=== PATIENT | female | born 1950 | race Caucasian/White ===

== ENCOUNTER 2024-11-16 08:59 | Outpatient (CLI) | payer SELFPAY ==
--- NOTE | 2024-11-16 09:11 | RDU_ITS ---
Reason For Study: HTN Right Renal Artery Left Renal Artery Right renal artery ostium Left renal artery ostium 346.5/69.7 225.1/76.3 RSV/EDV. PSV/EDV. Right renal artery proximal Left renal artery proximal PSV/EDV 253.5/45.5 PSV/EDV. 243.7/38.2 . Right renal artery mid 167.5/50.8 Left renal artery mid 185.8/29.1 PSV/EDV. PSV/EDV . Right renal artery distal Left renal artery distal 112.6/19.2 104.5/34.2 PSV/EDV. PSV/EDV. Right RAR 2.9. Left RAR 3.9. Right Renal Parenchyma Left Renal Parenchyma Upper Pole Medula 24.9/8.4 PSV/EDV. Left upper pole medulla 19.7/5.4 Right upper pole medulla EDR 0.3 . PSV/EDV . Right upper pole medulla R.I. Left upper pole medulla EDR 0.3 . 0.67 . Left upper pole medulla R.I. 0.72 . Upper Ja Cortx 21.2/8.4 PSV/EDV. UP Cortex 18.1/7.1 PSV/EDV. Right upper pole cortex EDR 0.4 . Left upper pole cortex EDR 0.4 . Right upper pole cortex R.I. 0.61 . Left upper pole cortex R.I. 0.61 . Right lower Pole medulla 22.5/9.6 Left lower Pole medulla 50.1/9.0 PSV/EDV . PSV/EDV . Right lower pole medulla EDR 0.4 . Left lower pole medulla EDR 0.2 . Right lower pole medulla R.I. Left lower pole medulla R.I. 0.82 . 0.57 . Lower Pole Cortx 26.4/10.9 PSV/EDV. Lower Pole Cortex 14.5/6.5 PSV/EDV. Left lower pole cortex EDR 0.4 . Right lower pole cortex EDR 0.4 . Left lower pole cortex R.I. 0.59 . Right lower pole cortex R.I. 0.55 . Left Renal Hilar Right Renal Hilar LT Hilar avg 59.0/18.4 PSV/EDV . Right Hilar avg 72.0/27.8 PSV/EDV. Left hilar acceleration time 40 Right hilar acceleration time 70 m/sec. m/sec. Left Renal Dimensions Right Renal Dimensions Left kidney size 10.6 cm . Right kidney size 8.9 cm . Left cortical dimension 1.26 cm . Right cortical dimension 1.14 cm . Aorta Proximal abdominal aorta 2.50x2.27 cm . Proximal abdominal aorta peak systolic velocity is 88.8 cm/sec . Distal abdominal aorta 1.66x1.62 cm . Distal abdominal aorta peak systolic velocity is 107.0 cm/sec . VL/Renal Artery Duplex Ultrasound Interpretation Summary Right renal artery patent with < 60% stenosis. Left renal artery patent with > 60% stenosis. Right renal vein patent. Left renal vein patent. Right kidney diminshed in size. Left kidney normal in size. Ordering Physician: Kaveh Alston Referring Physician: Kaveh Alston Performed By: Kamille Bryant RVT and Student
--- NOTE | 2024-11-16 09:11 | ECHOD_ITS ---
Reason For Study: HYPERTENSION Procedure This was a 2D Doppler, Color Flow transthoracic echocardiogram. Exam performed in department. Left Ventricle Normal LV size. Left ventricular systolic function is normal. The left ventricular ejection fraction is 65 %. Stage 1 diastolic dysfunction. No regional wall motion abnormalities noted. Right Ventricle Normal RV size. Normal systolic function. Atria Normal left atrium. Normal right atrium. Mitral Valve Normal mitral valve. Mild (1+) eccentric mitral valve insufficiency. Tricuspid Valve Normal tricuspid valve. Mild (1+) tricuspid valve insufficiency. Pulmonary artery systolic pressure is 25 mmHg. Aortic Valve Trisinus/trileaflet aortic valve. Pulmonic Valve Normal pulmonic valve. Great Vessels Normal aortic root. The pulmonary artery is normal size. Normal inferior vena cava. Pericardium/Pleural No pericardial effusion. MMode/2D Measurements & Calculations LVIDd: 3.8 cm IVSd: 1.2 cm LVOT diam: 2.0 cm LVIDs: 2.1 cm LVPWd: 1.1 cm LVOT area: 3.1 cm2 RVDd: 3.9 cm FS: 43.8 % _ asc Aorta Diam: 3.4 cm LAV(MOD-bp): 50.3 ml LVAd ap4: 23.4 cm2 LAV(MOD-bp) Indexed: 25.5 ml/m2 LVLd ap4: 7.7 cm LAV(MOD-sp2): 49.5 ml EDV(MOD- sp4): 56.6 ml LAV(MOD-sp4): 47.4 ml EDV(sp4- el): 60.4 ml LVAs ap4: 12.0 cm2 LVLs ap4: 6.4 cm ESV(MOD- sp4): 19.1 ml ESV(sp4- el): 19.1 ml EF(MOD- sp4): 66.3 % EF(sp4- el): 68.3 % _ LVAd ap2: 20.6 cm2 SV(MOD-sp4): 37.5 ml SV(MOD- sp2): 30.1 ml LVLd ap2: 7.8 cm SI(MOD-sp4): 19.0 ml/m2 SI(MOD- sp2): 15.2 ml/m2 EDV(MOD-sp2): 44.6 ml EDV(sp2-el): 46.2 ml LVAs ap2: 10.7 cm2 LVLs ap2: 6.8 cm ESV(MOD-sp2): 14.5 ml ESV(sp2-el): 14.2 ml EF(MOD-sp2): 67.5 % _ SV(sp4-el): 41.3 ml Ao sinus diam: 2.[address] Junction: 2.7 cm _ LA dimension(2D): 3.4 cm LA A4 area: 18.0 cm2 RA A4 area: 16.3 cm2 _ TAPSE: 1.9 cm Time Measurements MV dec time: 0.24 sec Doppler Measurements & Calculations MV E max rocky: 74.0 cm/sec Lat Peak E' Rocky: 10.9 cm/sec Med Peak E' Rocky: 8.2 cm/sec MV A max rocky: 90.8 cm/sec E/E' lat: 6.8 E/E' med: 9.0 MV E/A: 0.81 _ MV dec slope: 306.7 cm/sec2 Ao V2 max: 183.3 cm/sec LV V1 max: 114.8 cm/sec Ao max P.4 mmHg LV V1 max P.3 mmHg Ao V2 mean: 136.8 cm/sec LV V1 mean P.0 mmHg Ao mean P.1 mmHg LV V1 mean: 80.7 cm/sec Ao V2 VTI: 38.3 cm LV V1 VTI: 26.7 cm AV (velocity ratio): 0.70 ANA PAULA(I,D): 2.2 cm2 ANA PAULA(V,D): 2.0 cm2 _ SV(LVOT): 83.5 ml PA V2 max: 100.6 cm/sec TR max rocky: 229.9 cm/sec TR max P.1 mmHg ECHO/Echo Complete Interpretation Summary Normal LV size. Left ventricular systolic function is normal. The left ventricular ejection fraction is 65 %. Stage 1 diastolic dysfunction. Pulmonary artery systolic pressure is 25 mmHg. Ordering Physician: Kaveh Alston Referring Physician: Kaveh Alston Performed By: Patricia Escobar RDCS
--- NOTE | 2024-11-16 09:11 | CDU_ITS ---
Reason For Study: HTN Rt. Velocities/BP Lt. Velocities/BP Prox CCA 139.0/22.6 cm/sec. Prox CCA 166.7/37.1 cm/sec. Mid CCA 121.4/27.0 cm/sec. Mid CCA 124.7/18.8 cm/sec. Dist CCA 86.3/15.1 cm/sec. Dist CCA 84.6/18.8 cm/sec. Prox ICA 76.5/15.1 cm/sec. Prox ICA 65.4/18.8 cm/sec. Mid ICA 86.3/24.9 cm/sec. Mid ICA 66.6/25.9 cm/sec. Dist ICA 102.3/29.8 cm/sec. Dist ICA 82.6/21.2 cm/sec. Rt. ICA/CCA = 0.8. Lt. ICA/CCA = 0.7. Prox ECA 128.0/16.0 cm/sec. Prox ECA 110.1/13.3 cm/sec. Rt. Vert. 56.9/16.3 cm/sec. Lt. Vert. 47.2/10.9 cm/sec. Right Extracranial There is homogeneous, smooth atherosclerotic plaque noted in the right common carotid artery. There is heterogeneous, irregular atherosclerotic plaque noted in the right internal carotid artery. There is intimal thickening but no significant atherosclerotic plaque noted in the right external carotid artery. Antegrade flow is noted in the right vertebral artery. Left Extracranial There is homogeneous, smooth atherosclerotic plaque noted in the left common carotid artery. There is homogeneous, irregular atherosclerotic plaque noted in the left internal carotid artery. There is homogeneous, smooth atherosclerotic plaque noted in the left external carotid artery. Antegrade flow is noted in the left vertebral artery. Procedure Carotid Duplex [id number]. This is a Carotid Duplex examination using B-mode, color flow and specral Doppler. Exam performed in department. VL/Carotid Duplex Ultrasound Interpretation Summary Mild (<50%) stenosis right extracranial internal carotid. Mild (<50%) stenosis left extracranial internal carotid. Patent and antegrade vertebrals bilaterally. Ordering Physician: Kaveh Alston Referring Physician: Kaveh Alston Performed By: Kamille Bryant RVT and Student
== END 2024-11-16 23:59 | disposition home or self-care (01) ==
PROVIDERS: PCP Physician Assistant; Referring Provider Physician Assistant; Visit Provider Physician Assistant
DX: I16.0 Hypertensive urgency (principal); I25.10 Atherosclerotic heart disease of native coronary artery without angina pectoris; I70.1 Atherosclerosis of renal artery
CPT/HCPCS: 93306; 93880; 93975

== ENCOUNTER → 2025-06-18 | Outpatient (CLI) | payer SELFPAY ==
--- NOTE | 2025-06-18 07:59 | CT_ITS ---
PROCEDURE: EXTREMITY UPPER WITHOUT CONTRA 06/18/2025 REASON FOR EXAM: PRIMARY OSTEOARTHRITIS TECHNIQUE: Procedure Code: CTEUWO Modality: CT Procedure: EXTREMITY UPPER WITHOUT CONTRA Coronal and Sagittal reconstruction series were provided. One or more dose reduction techniques were used (e.g., Automated exposure control, adjustment of the mA and/or kV according to patient size, use of iterative reconstruction technique. RADIATION DOSE SUMMARY: CTDlvol: 44.6 mGy DLP: 1100 mGycm COMPARISON: None FINDINGS: Bones: Bone mineralization is preserved. There is no acute fracture. Joints: Advanced degenerative changes of the left glenohumeral joint. Calcified 5 mm and 12 mm calcified loose bodies in the posterior recess of the joint. Joint effusion. Subchondral cystic changes seen in the glenoid and humeral head. Moderate AC joint arthropathy present. Multilevel spondylosis through the spine. Soft Tissues: Soft tissues around the shoulder are normal. There is a calcified granulomata in the left upper lobe. Subpleural 6 mm nodule seen in the left lower lobe. Remainder of the lung is clear Visualized base of the neck is normal. There is atherosclerosis. Ectasia of the aorta present. No pericardial effusion seen. CT/Extremity Upper without Contra IMPRESSION: Advanced degenerative changes of the glenohumeral joint with joint effusion and multiple calcified loose bodies as described above. Reading Location: [facility]
[2025-06-18 09:16] LABS: Hematocrit 39.1 % (37-47); Hemoglobin 13.1 g/dL (12.0-15.0); Immature Granulocytes Count 0.020 X10^3/uL (0.0-0.0); Mean Corp Hgb Conc 33.5 g/dL (32-36); Mean Corpuscular Volume 92.0 fL (81-99); Mean Platelet Vol. 10.6 fl (6.2-12.0); NRBC Flagged by Analyzer 0 % (0-5); Platelet Count 247 K/mm3 (150-450); RBC Distribution Width CV 12.8 % (11.6-14.6); RBC Distribution Width SD 43.0 fl (35.1-43.9); Red Blood Count 4.25 M/mm3 (4.2-5.4); White Blood Count 6.7 K/mm3 (4.4-11.0)
[2025-06-18 09:46] LABS: Albumin, Serum 4.1 g/dL (3.4-4.8); Anion Gap 11 (5-15); BUN 22 mg/dL (4-19); BUN/Creat Ratio 19.9 RATIO (10-20); Calcium,Total 9.5 mg/dL (7.6-11.0); Carbon Dioxide 26.4 mmol/L (21.0-32.0); Chloride 104 mmol/L (98-108); Glucose 91 mg/dL (70-99); Potassium 4.5 mmol/L (3.3-5.1)
[2025-06-18 11:04] LABS: Magnesium 2.3 mg/dL (1.5-2.2)
== END | disposition home or self-care (01) ==
PROVIDERS: Anesthesiology; PCP Physician Assistant; Visit Provider Student in an Organized Health Care Education/Training Program
DX: Z01.818 Encounter for other preprocedural examination (principal); M19.012 Primary osteoarthritis, left shoulder
CPT/HCPCS: 36415; 73200; 80048; 82040; 83735; 85025; 87081

== ENCOUNTER 2025-07-12 11:01 | Observation (INO) | payer SELFPAY ==
--- NOTE | 2025-06-15 08:50 | PAT.ANESEVAL ---
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 When Was Last Pacemaker Check QUESTION #4 FULL TEXT: You/Your Family Experience fever (hyperthermia) with Anesthesia Last Oral Intake Last Oral intake: Last Oral Intake NPO since Meds taken in AM with sips of water? Meds patient instructed to take am of surgery PONV PONV - certified marine mechanic: PONV - certified marine mechanic Female Yes 06/14/25 08:21 HX of Motion Sickness No 06/14/25 08:21 HX of N/V After Surgery No 06/14/25 08:21 Non-Smoker Yes 06/14/25 08:21 Duration of Surgery greater Yes 06/14/25 08:21 than 60 minutes Number of Risk Factors 3 06/14/25 08:21 PONV Score Moderate Risk 06/14/25 08:21 Respiratory Assessment Respiratory Assessment - certified marine mechanic: Respiratory Tract Infection Hx - certified marine mechanic Hx Respiratory Tract Infection No 06/14/25 08:21 STOP Sleep Apnea STOP Sleep Apnea - certified marine mechanic: STOP Sleep Apnea - certified marine mechanic Hx Hypertension Yes: CONTROLLED WITH MEDS 06/14/25 08:21 Hx Sleep Apnea No 06/14/25 08:21 CPAP BIPAP Do you snore loudly (louder No 06/14/25 08:21 than talking or can be heard Do you often feel tired/ No 06/14/25 08:21 fatigued/ sleepy during daytime? Has anyone observed you stop No 06/14/25 08:21 breathing during sleep? STOP Results Negative 06/14/25 08:21 QUESTION #5 FULL TEXT : Do you snore loudly (louder than talking or can be heard through closed doors)? 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 Specify any problems Hx of Preganancy in last 3 No 06/14/25 08:21 Months Nurse Filling Out Transfusion DSCHRIBER 06/14/25 08:21 & Questions: Date: 06/14/25 06/14/25 08:21 Time: 08:22 06/14/25 08:21 Patient unable to answer at this time (ie. confused, unrespo /Reproduction History /Reproductive History - certified marine mechanic: /Reproductive Hx- certified marine mechanic Hx Now No 06/14/25 08:21 Gestational Age (in weeks): EDC: Hx Hx Para Hx Section SAB No 06/14/25 08:21 PFS Medical History (Updated 06/14/25 @ 10:08 by Linda Youngblood) Wears hearing aid Wears glasses Wears partial dentures Post-menopausal Arthritis High cholesterol Stroke/cerebrovascular accident Non-smoker Leg cramps History of edema Cardiology follow-up encounter Hypertension History of rheumatic fever History of echocardiogram Home Medications ?Medication ?Instructions ?Recorded ?Last Taken ?Type aspirin 81 mg tablet,delayed 81 mg PO DAILY 06/14/25 Unknown History release (Adult Low Dose Aspirin) atorvastatin 40 mg tablet (Lipitor) 40 mg PO QHS 06/14/25 Unknown History cholecalciferol (vitamin D3) 50 50 mcg PO DAILY 06/14/25 Unknown History mcg (2,000 unit) tablet (Vitamin D3) latanoprost 0.005 % eye drops 1 drp ophthalmic (eye) DAILY 06/14/25 Unknown History losartan 50 mg tablet 50 mg PO DAILY 06/14/25 Unknown History nifedipine 30 mg tablet,extended 30 mg PO QHS 06/14/25 Unknown History release omega 2-odq-zgl-fish oil 1,000 mg 1 cap PO DAILY 06/14/25 Unknown History (120 mg-180 mg) capsule timolol 0.5 % eye drops 1 drp EACH EYE QHS 06/14/25 Unknown History vit C 50 mg-E 15 unit-zinc cit 4.5 2 tab PO DAILY 06/14/25 Unknown History mg-lutein 2.5 mg-zeaxan chew tablet ([facility] vitamin B complex (Complex B-100 1 tab PO DAILY 06/14/25 Unknown History tablet,extended release) Allergy/AdvReac Type Severity Reaction Status Date / Time No Known Allergies Allergy Verified 06/14/25 08:11 Surgical History (Updated 06/14/25 @ 08:31 by Linda Youngblood) Hx of colonoscopy Hx of cholecystectomy Social History Smoking Status: Never smoker Audit: Pertinent Findings Pertinent Findings Echo (EF%) pertinent findings: November 16, 2024. EF is 65%. PASP is 25 mmHg. No aortic stenosis is noted. Consult pertinent findings: January 10, 2025. Dr. Grady. 1. Cerebrovascular accident-check Holter monitor for evidence of any atrial fibrillation. (See below). 2. Chest pain-atypical?less likely to be ischemic. Stress test was discussed patient wants to wait for now. 3. Hypertension?stable. Additional pertinent findings: Holter monitor. January 10, 2025. Heart rate ranged from 42 to 132 bpm. Many PACs. Rare PVCs. Short 3-5 beat run of atrial tachycardia. No significant bradycardia. Recommendation Anesthesia Recommendation Anesthesia recommendation: OPTIMIZED for anesthesia
[2025-07-12] VITALS (15 sets, daily range): BP systolic 120–151; BP diastolic 60–80; PULSE 62–77; RESP 16; TEMP 36.1–36.4; O2SAT 96–100; BMI 28.4
[2025-07-12] MEDS: Lactated Ringers 1,000 ML 15 ML IV (07:45)
[2025-07-12] MEDS: LR 1,000 ML - BOLUS PREOP 999 ML IV (08:17)
[2025-07-12] MEDS: Magnesium 1 GM over 15 mins IV (08:17)
--- NOTE | 2025-07-12 08:31 | PCM.PRE.AN2 ---
ASA Classification* ASA Classification ASA Classification: 3 Assessment & Plan Anesthesia* Anesthesia Assessment Anesthesia Assessment: Discussed sedation and/or anesthesia options, risks, benefits, and alternatives with patient/parents/legal guardian/POA. Questions invited. The patient/parents/legal guardian/POA seems to understand and agrees to proceed with anesthesia plan. Reviewed the physical assessment, medical history, allergy history and patient home medications list prior to surgery/procedure/anesthetic and documented any changes. Performed airway and anesthesia risk assessments. Anesthesia Type Anesthesia Type: General and Block (Left interscalene) History Source History Obtained from:: Patient and Chart Anesthesia Focused Assessment* Temperature: 97.3 F Pulse Rate: 77 Blood Pressure: 139/60 Respiratory Rate: 16 Pulse Ox: 99 Oxygen Delivery Method: Room Air Airway Assessment Mouth opens: >3 cm Mallampati Score: IV Teeth Condition: Intact, Dentures, Partial and Upper Neck Range of motion (ROM): Full ROM Labs Anesthesia Preop lab: CBC WBC, (4.4-11.0) 6.7 K/mm3 06/18/25, 08:07 RBC, (4.2-5.4) 4.25 M/mm3 06/18/25, 08:07 Hgb, (12.0-15.0) 13.1 g/dL 06/18/25, 08:07 Hct, (37-47) 39.1 % 06/18/25, 08:07 Plt Count, (150-450) 247 K/mm3 06/18/25, 08:07 CHEMISTRY Potassium, (3.3-5.1) 4.5 mmol/L 06/18/25, 08:07 Sodium, (133-145) 141 mmol/L 06/18/25, 08:07 Magnesium, (1.5-2.2) 2.3 mg/dL H 06/18/25, 08:07 BUN, (4-19) 22 mg/dL H 06/18/25, 08:07 Creatinine, (0.70-1.20) 1.11 mg/dL 06/18/25, 08:07 Glucose, (70-99) 91 mg/dL 06/18/25, 08:07 COAG Pre-Assessment Diagnosis/Proposed Procedure Planned Operative Procedure(s): LEFT REVERSE TOTAL SHOULDER ARTHROPLASTY Anesthesia History Anesthesia History - twister doffer: Anesthesia History - twister doffer Hx Hospitalization Yes: 10/2024 CVA 06/14/25 08:21 Any Problems With Anesthesia No 06/14/25 08:21 Cholinesterase deficiency No 06/14/25 08:21 You/Your Family Experience No 06/14/25 08:21 fever (hyperthermia) with Relationship Recent Exposure to Contagious No 07/12/25 07:56 Disease Does patient have nerve No 06/14/25 08:21 stimulator Patient instructed to have device shut off --Does patient have Pacemaker No 07/12/25 07:56 or ICD? When Was Last Pacemaker Check QUESTION #4 FULL TEXT: You/Your Family Experience fever (hyperthermia) with Anesthesia Last Oral Intake Last Oral intake: Last Oral Intake NPO since 05:00 07/12/25 07:56 Meds taken in AM with sips of No 07/12/25 07:56 water? Meds patient instructed to take am of surgery PONV PONV - twister doffer: PONV - twister doffer Female Yes 06/14/25 08:21 HX of Motion Sickness No 06/14/25 08:21 HX of N/V After Surgery No 06/14/25 08:21 Non-Smoker Yes 06/14/25 08:21 Duration of Surgery greater Yes 06/14/25 08:21 than 60 minutes Number of Risk Factors 3 06/14/25 08:21 PONV Score Moderate Risk 06/14/25 08:21 Height & Weight Height & Weight: Anesthesia: Height & Weight Height 5 ft 6 in 07/12/25 07:56 Weight: 80 kg 07/12/25 07:56 Body Mass Index (BMI) 28.4 07/12/25 07:56 Respiratory Assessment Respiratory Assessment - twister doffer: Respiratory Tract Infection Hx - twister doffer Hx Respiratory Tract Infection No 06/14/25 08:21 STOP Sleep Apnea STOP Sleep Apnea - twister doffer: STOP Sleep Apnea - twister doffer Hx Hypertension Yes: CONTROLLED WITH MEDS 06/14/25 08:21 Hx Sleep Apnea No 06/14/25 08:21 CPAP BIPAP Do you snore loudly (louder No 06/14/25 08:21 than talking or can be heard Do you often feel tired/ No 06/14/25 08:21 fatigued/ sleepy during daytime? Has anyone observed you stop No 06/14/25 08:21 breathing during sleep? STOP Results Negative 06/14/25 08:21 QUESTION #5 FULL TEXT : Do you snore loudly (louder than talking or can be heard through closed doors)? 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 Specify any problems Hx of Preganancy in last 3 No 06/14/25 08:21 Months Nurse Filling Out Transfusion DSCHRIBER 06/14/25 08:21 & Questions: Date: 06/14/25 06/14/25 08:21 Time: 08:22 06/14/25 08:21 Patient unable to answer at this time (ie. confused, unrespo /Reproduction History /Reproductive History - twister doffer: /Reproductive Hx- twister doffer Hx Now No 06/14/25 08:21 Gestational Age (in weeks): EDC: Hx Hx Para Hx Section SAB No 06/14/25 08:21 Active Medications Active Medications: Current Medications Generic Name Dose Route Start Last Admin Trade Name Meri PRN Reason Stop Dose Admin Acetaminophen 1,000 mg 07/12/25 09:15 07/12/25 08:18 Acetaminophen 500 Mg Tablet PO 07/12/25 09:16 1,000 mg PREOP ONE Administration Celecoxib 400 mg 07/12/25 09:15 07/12/25 08:17 Celecoxib 200 Mg Capsule PO 07/12/25 09:16 400 mg PREOP ONE Administration Dexamethasone Sodium Phosphate 10 mg 07/12/25 09:15 Dexamethasone 10 Mg/Ml Vial IV 07/12/25 09:16 INTRAOP ONE Gabapentin 600 mg 07/12/25 09:15 07/12/25 08:18 Gabapentin 600 Mg Tablet PO 07/12/25 09:16 600 mg PREOP ONE Administration Lactated Ringer's 1,000 mls @ 999 mls/hr 07/12/25 09:15 07/12/25 08:17 IV 07/12/25 10:15 999 mls/hr .Q1H1M ABI Administration Cefazolin Sodium 2 gm/ Sodium 110 mls @ 150 mls/hr 07/12/25 09:15 Chloride IV 07/12/25 09:58 INTRAOP ONE Tranexamic Acid 1,000 mg/ 110 mls @ 660 mls/hr 07/12/25 09:15 Sodium Chloride IV 07/12/25 09:24 INTRAOP ONE Lactated Ringer's 1,000 mls @ 999 mls/hr 07/12/25 10:15 IV 07/12/25 11:15 .Q1H1M ABI Lactated Ringer's 1,000 mls @ 125 mls/hr 07/12/25 11:15 IV 07/12/25 19:14 .Q8H ABI Magnesium Sulfate 1 gm/ 102 mls @ 408 mls/hr 07/12/25 09:15 07/12/25 08:17 Dextrose IV 07/12/25 09:29 408 mls/hr PREOP ONE Administration Lactated Ringer's 1,000 mls @ 15 mls/hr 07/12/25 07:45 IV .Q48H [facility] Insulin Human Lispro 1 - 6 unit 07/12/25 09:15 Insulin Lispro 100 Unit/Ml Insuln.Pen SC 07/12/25 15:15 Q4H PRN PRN BG>/= 180, SEE PROTOCOL Protocol PFSH Medical History Wears hearing aid Wears glasses Wears partial dentures Post-menopausal Arthritis High cholesterol Stroke/cerebrovascular accident Non-smoker Leg cramps History of edema Cardiology follow-up encounter Hypertension History of rheumatic fever History of echocardiogram Home Medications ?Medication ?Instructions ?Recorded ?Last Taken ?Type aspirin 81 mg tablet,delayed 81 mg PO DAILY 06/14/25 07/09/25 History release (Adult Low Dose Aspirin) atorvastatin 40 mg tablet (Lipitor) 40 mg PO QHS 06/14/25 07/11/25 History cholecalciferol (vitamin D3) 50 50 mcg PO DAILY 06/14/25 07/11/25 History mcg (2,000 unit) tablet (Vitamin D3) latanoprost 0.005 % eye drops 1 drp ophthalmic (eye) DAILY 06/14/25 07/11/25 History losartan 50 mg tablet 50 mg PO DAILY 06/14/25 07/11/25 History nifedipine 30 mg tablet,extended 30 mg PO QHS 06/14/25 07/11/25 History release omega 6-qou-dut-fish oil 1,000 mg 1 cap PO DAILY 06/14/25 07/11/25 History (120 mg-180 mg) capsule timolol 0.5 % eye drops 1 drp EACH EYE QHS 06/14/25 07/11/25 History vit C 50 mg-E 15 unit-zinc cit 4.5 2 tab PO DAILY 06/14/25 07/11/25 History mg-lutein 2.5 mg-zeaxan chew tablet ([employer]) vitamin B complex (Complex B-100 1 tab PO DAILY 06/14/25 07/11/25 History tablet,extended release) Allergy/AdvReac Type Severity Reaction Status Date / Time No Known Allergies Allergy Verified 07/12/25 07:50 Surgical History Hx of colonoscopy Hx of cholecystectomy Review of Systems (Anesthesia) ROS Narrative System reviewed and no additional complaints, except as documented.
[2025-07-12] MEDS: Midazolam 2 MG/2 ML Syringe IV (08:49)
[2025-07-12] MEDS: Cefazolin 1 GM/5 ML Vial 2 GM IV (09:20)
[2025-07-12] MEDS: fentaNYL 100 MCG/2 ML Ampul 50 MCG IV (09:25)
[2025-07-12] MEDS: Lidocaine 1% (5 ml sdv) 5 ML Vial 2 ML IV (09:25)
[2025-07-12] MEDS: TXA 1000mg in NS100 100ml (IVPB at Incision) 660 MG IV (10:50)
--- NOTE | 2025-07-12 11:25 | RAD_ITS ---
PROCEDURE: SHOULDER MIN 2 VIEWS 07/12/2025 REASON FOR EXAM: POST OP TECHNIQUE: Procedure Code: RADSH Modality: DX Procedure: SHOULDER MIN 2 VIEWS Laterality: Left COMPARISON: None FINDINGS: Patient is postop from left glenohumeral joint replacement. Components demonstrate anatomic alignment. There is normal expected soft tissue swelling and subcutaneous emphysema. No plain film evidence of postoperative complication RAD/Shoulder min 2 Views IMPRESSION: No plain film evidence of postoperative complication after left glenohumeral mila int replacement. Components demonstrate anatomic alignment Reading Location: [id number]
--- NOTE | 2025-07-12 11:29 | PCM.POST.ANE ---
Anesthesia: Postop Eval I Current Vital Signs Temperature: 97.5 F Pulse Rate: 67 Blood Pressure: 132/69 Respiratory Rate: 16 Pulse Ox: 100 Oxygen Delivery Method: Room Air Assessment Airway patent: Yes Spontaneous unlabored respirations: Yes Mental status: Awake and Calm nausea: No Vomiting: No Anesthesia Complication: No Fluid Hydration Crystalloid volume administer (ml): 800 Total IV fluid infused: 800 Progress Note Anesthesia document: Postop Eval 1 completed: Yes
[2025-07-12] MEDS: LR 1,000 ML - BOLUS POSTOP 999 ML IV (11:37)
[2025-07-12] MEDS: LR 1,000 ML - 125 ML/HR (POST BOLUS) POST OP IV (12:53)
[2025-07-12] MEDS: Ensure Surgery 237 ML LIQUID PO ×2 (13:31→17:20)
--- NOTE | 2025-07-12 14:18 | PCM.OPRPT ---
Operative Report (Standard) Operative Information Date of Procedure: 07/12/25 Pre-Operative Diagnosis: 1. Left primary glenohumeral joint osteoarthritis 2. Left shoulder rotator cuff tear Post-Operative Diagnosis: 1. Left primary glenohumeral joint osteoarthritis 2. Left shoulder rotator cuff tear Surgery/Procedure Performed: Left reverse total shoulder arthroplasty electrical controls assembler: Yes Principal Hardware Architect: Tiffanie Groves Tasks completed by certified surgical first assistant: Opening & closing, Removing tissue, Implanting device and Retracting Additional talent assistant?: No Type of Anesthesia: General/Regional RN Documented Start/Stop Times: Operation Date: 07/12/25 09:15 Case Time Into Pre-Op 07/12/25 07:33 Anesthesia Start 07/12/25 09:14 Into Room 07/12/25 09:14 Out of Pre-Op 07/12/25 09:14 Procedure Start 07/12/25 10:00 Procedure End 07/12/25 11:12 Anesthesia End 07/12/25 11:21 Out of Room 07/12/25 11:21 Into Recovery 07/12/25 11:25 Out of Recovery 07/12/25 12:33 Procedure Start Time: 10:00 Procedure Stop Time: 11:12 Select all DRAINS/GRAFTS/IMPLANTS that apply: Implanted device Implanted device details: Tornier Aequalis PerFORM+ reversed baseplate 25mm diameter +3 mm lateralization, +3 glenosphere cobalt chrome 36 mm diameter, Tornier perform inlay stem size #3 plus, + 3 mm retentive size number 3 36 mm diameter polyethylene insert, long central post and peripheral screws x4. Estimated Blood Loss: 200 cc Specimen collected: No Description of surgery: Patient arrived to [facility] morning of the procedure and was greeted by the same day surgery staff. Prior to his procedure, I greeted the patient in the preoperative holding area I identified the patient by name, record number, and date of . Informed consent was confirmed. The operative extremity was marked. All questions were answered to patient satisfaction. An interscalene block was administered prior to procedure by anesthesia staff for postoperative and intraoperative analgesia. At time of his procedure, patient was brought to the operative suite and positioned supine on a standard table with a beachchair attachment. General anesthesia was induced after all bony prominences were well-padded. Endotracheal tube was placed. After adequate anesthesia and securing the tube, we prepared the patient to be positioned in the beachchair position. A well-padded well puller head was applied. The nonoperative extremity was placed in a well arm hughes. He was then brought into the beachchair position after we confirmed an appropriate blood pressure. We then spun the bed 45 degrees. The operative extremity was then prepared. In the butterfly wing of the bed was removed and a well-padded torso strap was applied to secure the patient to the bed. The operative extremity was now free. We then prepped and draped the left upper extremity in normal, sterile orthopedic fashion. We then performed a timeout with all parties in attendance in agreement with the side, site, and operation be performed. 2 g Ancef was administered prior to incision by anesthesia staff. No concerns were voiced and we elected to proceed. I first marked a standard deltopectoral incision just lateral to the coracoid process in line with the long axis of the humerus. Skin was sharply incised with 10 blade scalpel. I then dissected bluntly through the subcutaneous layers and found the fat stripe between the deltoid and pectoralis major. The cephalic vein was then identified and protected. It was retracted laterally with the deltoid. I then bluntly dissected underneath the deltoid with a Mcmullen elevator. Karissa retractor was placed. The upper 1 cm of the pectoralis major was released. I then identified the long head of the biceps tendon in the intertubercular groove. This was tenodesed in situ with #2 FiberWire. I then amputated the biceps proximal to the tenodesis site and followed the tendon to the supraglenoid tubercle where it was amputated. This identified the lesser and greater tuberosities. The supraspinatus was completely torn and retracted with an exposed greater tuberosity. I then performed a subscapularis peel while rotating the humerus externally. I tagged the subscapularis for possible repair later with a tagging suture. Humeral head was then dislocated anteriorly. Appropriate access to the humeral head was confirmed. I then subluxed the humeral head posteriorly with a Fukuda retractor placed around the posterior lip of the glenoid. Inferior capsule was tension. I was able to palpate the axillary nerve. Inferior capsule was then released to the 4 o'clock position of the glenoid face. 3 sided subscapularis release was performed with Bovie cautery. I then remove the Fukuda retractor and redislocated the shoulder anteriorly. I then made a anatomic neck cut of the cartilaginous surface of the humeral head. Sizing plate for a size # 3 stem was utilized to determine appropriate reaming size. A central pin was placed engaging the lateral cortex of the humerus. A size # 3 reamer was used to ream the humeral metaphysis and prepare for the inlay stem. A canal finding reamer was utilized prior to sequential broaching to a size # 3 short stem with excellent rotational and axial purchase in the humerus. I remove the broach handle left the size # [address] I then subluxed the humerus posterior to the glenoid. I then placed retractors around the posterior and anterior glenoid to expose the glenoid. Glenoid labrum was removed with Bovie cautery protecting the axillary nerve. We then used the 25 mm guide to position our centering pin, exiting approximately 25 mm from the joint surface along the anterior scapula. Guide was removed and pin was analyzed and compared to preoperative planning. It appeared to be in appropriate position. The Nautilus shaped reamer was then placed over top of the centering pin. I reamed a flat surface of the glenoid. We then removed the reamer and used the cannulated drill for the long central post. Post and baseplate was assembled on the back table. We then inserted the baseplate and central post the assembled baseplate to an appropriate depth with good press-fit purchase. A Willington was used to confirm depth. Cortical screws then were placed in the peripheral holes with good purchase. The baseplate had excellent purchase and the entire scapula would rotate with rotation of the baseplate. We then impacted the 36+3 mm glenosphere and tightened the locking screw mechanism. We then removed retractors and turned our attention back to the humerus. I placed a standard +3 millimeters retentive polyethylene insert. I then reduced the shoulder. There was excellent range of motion and stability in all planes of motion. We selected this as our final size. We removed trials from the humerus after final dislocation. I copiously irrigated the canal. Broach was placed on hand and then impacted to an appropriate depth. Final + 3 mm retentive polyethylene insert was placed. Final reduction was then performed. The subscapularis was then identified with a tagging suture. Repair would have been likely under undue tension and likely failed. I elected to not perform a subscapularis repair. We then copiously irrigated the wound with sterile Betadine and normal saline solution. We reapproximated the interval with 0 Vicryl suture. Subcutaneous layers were reapproximated with 2 -0 Vicryl suture. Skin was finally running V-Loc 3-0 Monocryl suture and Dermabond. A sterile silver Mepilex dressing was applied. Patient was then placed in an ultra sling. Patient tolerated procedure well without complication. She was positioned back in the supine position extubated in the operative suite. She was transferred to the [facility] and subsequently to PACU in stable condition. Need for skilled talent assistant: Tiffanie Groves PA-C was critical to the outcome of the case. During the course of the procedure the physician talent assistant played a vital role. Her intimate knowledge of my steps in the procedure aided in safe and expedient completion of the procedure. The PA played a vital role in positioning particularly in obtaining the appropriate positioning. The PA was also vital in the retraction of soft tissues during the exposure and protecting vital structures. The PA was also vital and protecting soft tissues during times of bony cuts. She also played a vital role in closure with my direct supervision. The PA was also important during reduction and dislocation of the joint and trials intraoperatively. Intraoperative medications: 2 g Ancef IV, 1 g TXA IV x2 Post Operative Plan: Patient will be placed in observation overnight due to medical comorbidities including labile hypertension and recent CVA. Anticipate discharge home tomorrow if stable. Weightbearing: Nonweightbearing left upper extremity, okay for pendulums. Range of motion of wrist elbow and hand as tolerated. Antibiotics: 2 g Ancef IV prior to incision, 24 hours IV antibiotics postoperatively DVT Prophylaxis: Aspirin enteric-coated 81 mg twice daily starting tomorrow Villalobos: None Dressing: Maintain silver dressing x5 days. Okay to shower dressing on starting on day 4 X-Rays: 2 weeks postop in the office Pain Medication: Oxycodone Rx upon discharge Follow-up: 2 weeks post-operatively Surgical Findings: Severe primary glenohumeral joint osteoarthritic changes with full-thickness supraspinatus tear Complications Complications: No Admit VTE Documentation VTE Present on Admission: No VTE Mechan Device Prophylaxis: SCD's and Knee High JAKOB Hose VTE Pharm Prophylaxis ordered?: Yes
--- NOTE | 2025-07-12 15:25 | PCM.CONS.GEN ---
Assessment & Plan Assessment/Plan (1) Status post reverse arthroplasty of left shoulder: PLAN: Plan Patient is a 74-year-old female who presented [facility] on 07/12/2025 for planned left total shoulder replacement. Medicine consulted postoperatively for medical management. 1. Left primary glenohumeral joint arthritis with left shoulder rotator cuff tear ? Orthopedic surgery primary. S/p left reverse total shoulder replacement with Dr. Virk on 07/12. Tolerated procedure well, no intraoperative complications noted. Postoperative pain control with scheduled Tylenol and oxycodone as needed. DVT prophylaxis per orthopedics. PT/OT/case management consulted. Follow-up a.m. CBC and BMP. 2. Hypertension, hyperlipidemia, history of CVA with no residual deficits ? Normotensive in the 130s over 60s postoperatively. Okay to resume home baby aspirin, statin, losartan and nifedipine. DVT prophylaxis: Per orthopedics Total clinical time spent by myself addressing the patient's medical issues, reviewing all the data, and collaborating with patient's care team: 36 minutes. HPI Consult Data Date of Consult: 07/12/25 HPI Narrative Reason for Consultation: Postoperative medical management HPI Narrative: NAILA RASMUSSEN, is a 74 F who presented to [facility] on 07/12/2025 for planned orthopedic procedure. Medicine consulted postoperatively for medical management. Patient had left reverse total shoulder arthroplasty done with Dr. Virk today. Tolerated procedure well, no intraoperative complications noted. I saw the patient at bedside this afternoon, is present. Patient was sitting back comfortably in bed, conversing normally, in no acute distress. Her left arm was in a sling and she noted that she still felt numb from the left shoulder down to her fingers at this time. No pain or discomfort noted. She denies any other acute concerns at this time. [facility] Medical History Wears hearing aid Wears glasses Wears partial dentures Post-menopausal Arthritis High cholesterol Stroke/cerebrovascular accident Non-smoker Leg cramps History of edema Cardiology follow-up encounter Hypertension History of rheumatic fever History of echocardiogram Home Medications ?Medication ?Instructions ?Recorded ?Last Taken ?Type aspirin 81 mg tablet,delayed 81 mg PO DAILY 06/14/25 07/09/25 History release (Adult Low Dose Aspirin) atorvastatin 40 mg tablet (Lipitor) 40 mg PO QHS 06/14/25 07/11/25 History cholecalciferol (vitamin D3) 50 50 mcg PO DAILY 06/14/25 07/11/25 History mcg (2,000 unit) tablet (Vitamin D3) latanoprost 0.005 % eye drops 1 drp ophthalmic (eye) DAILY 06/14/25 07/11/25 History losartan 50 mg tablet 50 mg PO DAILY 06/14/25 07/11/25 History nifedipine 30 mg tablet,extended 30 mg PO QHS 06/14/25 07/11/25 History release omega 0-ofs-xcl-fish oil 1,000 mg 1 cap PO DAILY 06/14/25 07/11/25 History (120 mg-180 mg) capsule timolol 0.5 % eye drops 1 drp EACH EYE QHS 06/14/25 07/11/25 History vit C 50 mg-E 15 unit-zinc cit 4.5 2 tab PO DAILY 06/14/25 07/11/25 History mg-lutein 2.5 mg-zeaxan chew tablet ([employer]) vitamin B complex (Complex B-100 1 tab PO DAILY 06/14/25 07/11/25 History tablet,extended release) Allergy/AdvReac Type Severity Reaction Status Date / Time No Known Allergies Allergy Verified 07/12/25 07:50 Surgical History Hx of colonoscopy Hx of cholecystectomy ROS Constitutional Constitutional: Denies chills, fatigue, fever(s) or weakness Cardiovascular Cardiovascular: Denies chest pain Respiratory/Chest Respiratory/Chest: Denies shortness of breath at rest Gastrointestinal Gastrointestinal: Denies abdominal pain Musculoskeletal Musculoskeletal: Denies arthralgias or myalgias Neurologic Neurologic: Denies dizziness, focal weakness or headache(s) Physical Exam Const alert, oriented x3, no apparent distress and average body habitus Constitutional Narrative: Pleasant elderly female, sitting back comfortably in bedside chair, conversing normally, in no acute distress. General Appearance: cooperative and comfortable HEENT normocephalic, head/scalp atraumatic, hearing grossly normal bilaterally, nasal mucous membranes and turbinates normal and moist oral mucous membranes Eyes PERRL, EOMs intact bilaterally and conjunctivae normal Neck full ROM Chest inspection of chest normal Resp normal respiratory effort, normal air movement, no use of accessory muscles and clear to auscultation bilaterally Cardio regular rate, regular rhythm, no murmurs and peripheral pulses 2+ throughout GI normal to inspection, nondistended, normoactive bowel sounds, soft to palpation, non-tender and non-distended Back/Spine normal ROM Extremity Extremity Narrative: Left arm with sling in place. Skin no rashes or lesions noted Psych mental status grossly normal Lab / Micro Data Labs: Laboratory Results - last 24 hr 07/12/25 07:58: POC Glucose 80 Imaging Radiology Impression Shoulder X-Ray 07/12/25 11:25 IMPRESSION: No plain film evidence of postoperative complication after left glenohumeral joint replacement. Components demonstrate anatomic alignment Reading Location: [id number] Charges/Coding Visit Charges Inpatient E&M: 21474 Subs Hosp L2
--- NOTE | 2025-07-12 16:18 | POSTOPAN2_ITS ---
Anesthesia Postop Eval I Sum Postop Eval Completion status Anesthesia document: Postop Eval 1 completed: Yes Anesthesia Postop Eval I Summary Anesthesia Postop Eval I Summary: Anesthesia Postop Eval I: Assessment Summary Airway patent Yes 07/12/25 11:29 MERCHANDISING CONSULTANT.[email or web address] Spontaneous unlabored Yes 07/12/25 11:29 MERCHANDISING CONSULTANT.GDOTT respirations Mental status Awake,Calm 07/12/25 11:29 MERCHANDISING CONSULTANT.GDOTT nausea No 07/12/25 11:29 MERCHANDISING CONSULTANT.GDOTT Vomiting No 07/12/25 11:29 MERCHANDISING CONSULTANT.GDOTT Anesthesia Postop Eval I: Fluid Summary Crystalloid volume administer 800 07/12/25 11:29 MERCHANDISING CONSULTANT.GDOTT (ml) Colloids volume administered ( ml) Blood Product volume administered (ml) Total IV fluid infused 800 07/12/25 11:29 MERCHANDISING CONSULTANT.GDOTT Anesthesia Postop Eval I: Summary Notes Anesthesia Complication No 07/12/25 11:29 MERCHANDISING CONSULTANT.GDOTT Anesthesia Complication Comment: Post-operative progress note Anesthesia: Postop Eval II Evaluation Mental status: Awake Pain Level: 0 nausea: No Vomiting: No
--- NOTE | 2025-07-12 16:18 | PCM.POSTANE2 ---
Anesthesia Postop Eval I Sum Postop Eval Completion status Anesthesia document: Postop Eval 1 completed: Yes Anesthesia Postop Eval I Summary Anesthesia Postop Eval I Summary: Anesthesia Postop Eval I: Assessment Summary Airway patent Yes 07/12/25 11:29 SENIOR SEARCH MARKETING ANALYST.GDOTT Spontaneous unlabored Yes 07/12/25 11:29 SENIOR SEARCH MARKETING ANALYST.GDOTT respirations Mental status Awake,Calm 07/12/25 11:29 SENIOR SEARCH MARKETING ANALYST.GDOTT nausea No 07/12/25 11:29 SENIOR SEARCH MARKETING ANALYST.GDOTT Vomiting No 07/12/25 11:29 SENIOR SEARCH MARKETING ANALYST.GDOTT Anesthesia Postop Eval I: Fluid Summary Crystalloid volume administer 800 07/12/25 11:29 SENIOR SEARCH MARKETING ANALYST.GDOTT (ml) Colloids volume administered ( ml) Blood Product volume administered (ml) Total IV fluid infused 800 07/12/25 11:29 SENIOR SEARCH MARKETING ANALYST.GDOTT Anesthesia Postop Eval I: Summary Notes Anesthesia Complication No 07/12/25 11:29 SENIOR SEARCH MARKETING ANALYST.GDOTT Anesthesia Complication Comment: Post-operative progress note Anesthesia: Postop Eval II Evaluation Mental status: Awake Pain Level: 0 nausea: No Vomiting: No
[2025-07-12] MEDS: Cefazolin 1 GM/50 ML BAG IV (17:20)
[2025-07-12] MEDS: Senna/Docusate Sodium 1 Tablet 2 TABLET PO (20:52)
[2025-07-12] MEDS: Timolol 0.5% 5ML OPTH.BTL 1 DRP EACH EYE (20:53)
[2025-07-12] MEDS: NIFEdipine 30 MG Tablet PO (20:53)
--- OUTSIDE RECORDS SUMMARY | 2025-07-13 00:08 | XMS RPT_ITS | CCD ---
Author Organization [facility] ion Partnership [facility] Care Team Providers Care Inside Channel Account Manager Name Role Phone Nahomy Frank PA-C Primary Care Provid er NAHOMY FRANK Primary Care Unavaila ble [facility] GENER[facility] Consulting REMI Walter Attending Unavailable KATIE GIFFORD Admitting Unavailab SRINIVAS Foster Attending Unavailable NAHOMY FRANK Primary Care Unavaila NAHOMY Ortega Primary Care Unavaila EVERARDO Torres Attending UnavailNahomy gAustin Primary Care Provider PRICILLA JOSE Attending Unavailable PRICILLA JOSE Referring Unavailable NAHOMY FRANK Primary Care Unavailable Nahomy Frank Primary Care Unavailable Phi Virk Attending Unavailable Nahomy Frank Attending Unavailable Nahomy Frank Primary Care Unavailable Nahomy Frank Referring Unavailable Phi Virk Attending Unavailable Nahomy Frank Primary Care Unavailable Nahomy Frank Referring Unavailable Nahomy Frank Primary Care Unavailable Ramon Michael Attending Unavailable Nahomy Frank Primary Care Unavailable Piero Jaquez Attending Unavailable Medications Current Medications Medication Drug Class(es) Dates Sig (Normalized) Sig (Original) aspirin 81 mg delayed release oral tablet (7 sources) Platelet Aggregation Inhibitor, Nonsteroidal Anti-inflammatory Drug Start: 11-02-2024 End: 01-31-2025 take 1 tablet by mouth once daily aspirin 81 MG EC tablet Take 1 (one) tablet (81 mg total) by mouth daily . 30 tablet 2 11/02/2024 12:48 PM EST 11/02/2024 01/31/2025 Active Start: 11-01-2024 End: 11-02-2024 aspirin EC tablet 325 mg atorvastatin 40 mg oral tablet (7 sources) HMG-CoA Reductase Inhibitor Start: 11-01-2024 End: 12-02-2024 take 1 tablet by mouth once daily atorvastatin (LIPITOR) 40 MG tablet Take 1 (one) tablet (40 mg total) by mouth nightly . 30 tablet 11/02/2024 12:48 PM EST 11/02/2024 Active clopidogrel 75 mg oral tablet (7 sources) P2Y12 Platelet Inhibitor Start: 11-03-2024 End: 11-24-2024 take 1 tablet by mouth once daily clopidogreL (PLAVIX) 75 mg tablet Take 1 (one) tablet (75 mg total) by mouth daily for 21 days Start: 11/03/24. 21 tablet 11/02/2024 12:48 PM EST 11/03/2024 Active Start: 11-02-2024 take 300 mg by mouth once 300 mg, Oral, Once, On Tesha 11/02/24 at 1330, For 1 dose hydrALAZINE hydrochloride 50 mg oral tablet (3 sources) Arteriolar Vasodilator hydrALAZI NE (APRESOLINE) 50 MG tablet Indications: Cerebrovascular accident (CVA), unspecified mechanism (HCC) , Chest pain, unspecified type , Mixed hyperlipidemia , Primary hypertension Take 1 tablet by mouth as needed Active take 1 tablet by mouth twice suzan ly hydrALAZINE (APRESOLINE) 25 MG tablet Take 1 (one) tablet (25 mg total) by mouth 2 (two) times a day . Active hydroCHLOROthiazide 25 mg oral tablet (2 sources) Thiazide Diuretic take 1 tablet by mouth once daily hydroCHLOROthiazide (HYDRODIURIL) 25 MG tablet Take 1 (one) tablet (25 mg total) by mouth daily . Active losartan potassium 50 mg oral tablet (6 sources) Angiotensin 2 Receptor Citlaly Start: 2024 take 1 tablet by mouth once daily losartan (COZAAR) 50 MG tablet Take 1 (one) tablet (50 mg total) by mouth daily . 10/31/2024 Active multivitamin per tablet (5 sources) take 1 tablet by mouth once daily multivitamin per tablet Take 1 (one) tablet by mouth daily . Active take 1 tablet by mouth once miranda y multivitamin per tablet Take 1 (one) tablet by mouth daily . NIFEdipine 60 mg osmotic 24 hr extended release oral tablet (5 sources) Dihydropyridine Calcium Channel Citlaly take 1 tablet by mouth once daily NIFEdipine (PROCARDIA XL) 60 MG extended release tablet Indications: Cerebrovascular accident (CVA), unspecified mechanism (HCC) , Chest pain, unspecified type , Mixed hyperlipidemia , Primary hypertension Take 1 tablet by mouth daily Active take 1 tablet by khanh th once daily before breakfast NIFEdipine (ADALAT CC) 30 MG 24 hr table t Take 1 (one) tablet (30 mg total) by mouth every morning before breakfast . Active take 1 tablet by kahnh th every twenty-four hours at dinner NIFEdipine (ADALAT CC) 60 MG 24 hr table t Take 1 (one) tablet (60 mg total) by mouth with evening meal . Active verapamil hydrochloride 120 mg extended release oral tablet (5 sources) Calcium Channel Citlaly Start: 10-31-2024 take 1 tablet by mouth once daily verapamil sr (CALAN-SR) 120 MG er tablet Take 1 (one) tablet (120 mg total) by mouth daily . 10/31/2024 Active Completed/Discontinued Medications Medication Drug Class(es) Dates Sig (Normalized) Sig (Original) acetaminophen 325 mg oral tablet (1 source) Start: 11-01-2024 End: 11-02-2024 take 1 tablet by mouth every four hours as needed for pain and headache aluminum hydroxide 40 mg/ml / magnesium hydroxide 40 mg/ml / simethicone 4 mg/ml oral suspension (1 source) Start: 11-01-2024 End: 11-02-2024 take 30 mL by mouth every four hours as needed bisacodyl 10 mg rectal suppository (1 source) Stimulant Laxative Start: 11-01-2024 End: 11-02-2024 0.4 ml enoxaparin sodium 100 mg/ml prefilled syringe (1 source) Low Molecular Weight Heparin Start: 11-01-2024 End: 11-02-2024 inject 40 mg by subcutaneous injection once daily 40 mg, Subcutaneous, Nightly, First dose on Wed11/01/24 at 2100, Administer in abdomen unless otherwise directed by prescriber. Notify physician if patient refuses., Indication: VTE Prophylaxis iopamidoL (ISOVUE-370) 370 mg iodine /mL (76 %) injection 75 mL (1 source) Start: 11-01-2024 End: 11-01-2024 75 mL, Intravenous, Once in imaging, contrast, Starting on Wed11/01/24 at 0651, For 1 dose labetaloL (NORMODYNE) injection 10 mg (1 source) Start: 11-01-2024 End: 11-02-2024 take 10 mg intravenously every two hours as needed labetaloL (NORMODYNE) injection 10 mg latanoprost 0.05 mg/ml ophthalmic solution (7 sources) Prostaglandin Analog Start: 11-01-2024 End: 11-02-2024 1 drop, Both Eyes, At bedtime, First dose on Wed11/01/24 at 2100 take 1 drop(s) into the eye(s) once daily latanoprost (XALATAN) 0.005 % ophthalmic solution Indications: Cerebrovascular accident (CVA), unspecified mechanism (HCC) , Chest pain, unspecified type , Mixed hyperlipidemia , Primary hypertension 1 drop nightly Active take 1 drop(s) into the eye(s) at bedtime latanoprost (XALATAN) 0.005 % ophthalmic solution Administer 1 (one) drop to both eyes at bedtime . Active magnesium hydroxide 80 mg/ml oral suspension (1 source) Start: 11-01-2024 End: 11-02-2024 multivitamin (THERAGRAN) per tablet 1 tablet (1 source) Start: 11-02-2024 End: 11-02-2024 take 1 tablet by mouth once daily 1 tablet, Oral, Daily, First dose on Wed11/02/24 at 0900 2 ml ondansetron 2 mg/ml injection (2 sources) Serotonin-3 Receptor Antagonist Start: 11-01-2024 End: 11-02-2024 take 1 tablet by mouth every six hours as needed for nausea and vomiting Start: 11-01-2024 End: 11-02-2024 take 4 mg intravenously every six hours as needed for nausea and vomiting perflutren lipid microsphere s (DEFINITY) 0.143 mg/mL solution 0-10 mL of mixture (1 source) Start: 11-01-2024 End: 11-02-2024 Sodium Chloride (2 sources) Start: 11-01-2024 End: 11-02-2024 sodium chloride (PF) (NS) flush 5 mL Start: 11-01-2024 End: 11-01-2024 take 125 mL intravenously every hour 125 mL/hr, Intravenous, Continuous, Starting on 1/22/25 at 0810, For 8 hours traZODone hydrochloride 50 m g oral tablet (1 source) Serotonin Reuptake Inhibitor Start: 11-01-2024 End: 11-02-2024 Problems Problem Classification Problem Date Documented Da te Episodic/Chronic Acute cerebrovascular disease (19 sources) Ischemic stroke; Translations: [Cerebrovascular accident] Onset: 11-01-2024 11-02-2024 Chronic Disorders of lipid metabolism (3 sources) Mixed hyperlipidemia; Translations: [Mixed hyperlipidemia] Onset: 01-10-2025 01-10-2025 Chronic Essential hypertension (7 sources) Hypertensive disorder; Translations: [Essential (primary) hypertension] Onset: 11-01-2024 11-02-2024 Chronic Fluid and electrolyte disorders (4 sources) Moderate dehydration; Translations: [Dehydration] Onset: 11-01-2024 11-02-2024 Episodic Hypertension with complications and secondary hypertension (1 source) Hypertensive urgency; Translations: [Hypertensive urgency] Onset: 12-13-2024 Chronic Nonspecific chest pain (3 sources) Chest pain; Translations: [Chest pain, unspecified] Onset: 01-10-2025 01-10-2025 Episodic Results Test Name Value Interpretation Reference Range Facility MRSA/SAID NASAL SCREENon MRSA+SAID SCRN Reason for Exam: PRE OP MRSA MRSA Negative S. AUREUS S. aureus Negative Normal [facility] Comment on above: Performed By: #### L 501.1800, M100.651, L100.0100, L500.2500 #### [facility] [address] [place], [place], [id number] Albumin, Serumon 06-18-2025 Albumin [Mass/Vol] 4.1 g/dL Normal 3.4-4.8 [facility] Comment on above: Performed By: #### L 501.1800, M100.651, L100.0100, L500.2500 #### [facility] [address] [place], [address] Basic Metabolic Profile (BMP )on 06-18-2025 BUN/CRE 19.9 RATIO Normal 10-20 [facility] Comment on above: Performed By: #### L 501.1800, M100.651, L100.0100, L500.2500 #### [facility] [address] [place], [address] Calcium [Mass/Vol] 9.5 mg/dL Normal 7.6-11.0 [facility] Comment on above: Performed By: #### L 501.1800, M100.651, L100.0100, L500.2500 #### [facility] [address] [place], [address] Chloride [Moles/Vol] 104 mmol/L Normal 98-108 [facility] Comment on above: Performed By: #### L 501.1800, M100.651, L100.0100, L500.2500 #### [facility] [address] [place], [address] CO2 [Moles/Vol] 26.4 mmol/L Normal 21.0-32.0 [facility] Comment on above: Performed By: #### L 501.1800, M100.651, L100.0100, L500.2500 #### [facility] [address] [place], [address] Creatinine [Mass/Vol] 1.11 mg/dL Normal 0.70-1.20 [facility] Comment on above: Performed By: #### L 501.1800, M100.651, L100.0100, L500.2500 #### [facility] [address] [place], [address] GAP 11 Normal 5-15 [facility] Comment on above: Performed By: #### L 501.1800, M100.651, L100.0100, L500.2500 #### [facility] [address] [place], [address] GFR/1.73 sq M.predicted among non-blacks MDRD (S/P/Bld) [Vol rate/Area] 52 mL/min/{1.73_m2} Low >60 [facility] Comment on above: Result Comment: mL/m in/1.73m2 CKD-EPI Creatinine Equation (2020) Performed By: #### L 501.1800, M100.651, L100.0100, L500.2500 #### [facility] [address] [place], [address] Glucose [Mass/Vol] 91 mg/dL Normal 70-99 [facility] Comment on above: Performed By: #### L 501.1800, M100.651, L100.0100, L500.2500 #### [facility] [address] [place], [address] Potassium [Moles/Vol] 4.5 mmol/L Normal 3.3-5.1 [facility] Comment on above: Performed By: #### L 501.1800, M100.651, L100.0100, L500.2500 #### [facility] [address] [place], [address] Sodium [Moles/Vol] 141 mmol/L Normal 133-145 [facility] Comment on above: Performed By: #### L 501.1800, M100.651, L100.0100, L500.2500 #### [facility] [address] [place], [address] Urea nitrogen [Mass/Vol] 22 mg/dL High 4-19 [facility] Comment on above: Performed By: #### L 501.1800, M100.651, L100.0100, L500.2500 #### [facility] [address] [place], [address] CBC W/Diff, Automatedon 09-0 8-2024 Absolute Lymph 1.68 X10 3/uL Normal 0.83-4.51 [facility] Comment on above: Performed By: #### L 501.1800, M100.651, L100.0100, L500.2500 #### [facility] [address] [place], [address] Absolute Neut 4.2 X10 3/uL Normal 2.0-7.7 [facility] Comment on above: Performed By: #### L 501.1800, M100.651, L100.0100, L500.2500 #### [facility] [address] [place], [address] Basophils/100 WBC (Bld) 0.4 % Normal 0-1 [facility] Comment on above: Performed By: #### L 501.1800, M100.651, L100.0100, L500.2500 #### [facility] [address] [place], [address] Eosinophils/100 WBC (Bld) 1.6 % Normal 0-5 [facility] Comment on above: Performed By: #### L 501.1800, M100.651, L100.0100, L500.2500 #### [facility] [address] [place], [address] Erythrocyte distribution width (RBC) [Ratio] 12.8 % Normal 11.6-14.6 [facility] Comment on above: Performed By: #### L 501.1800, M100.651, L100.0100, L500.2500 #### [facility] [address] [place], [address] Hematocrit (Bld) [Volume fraction] 39.1 % Normal 37-47 [facility] Comment on above: Performed By: #### L 501.1800, M100.651, L100.0100, L500.2500 #### [facility] [address] [place], [address] Hemoglobin (Bld) [Mass/Vol] 13.1 g/dL Normal 12.0-15.0 [facility] Comment on above: Performed By: #### L 501.1800, M100.651, L100.0100, L500.2500 #### [facility] [address] [place], [address] IG% 0.300 Normal 0.0-0.9 [facility] Comment on above: Result Comment: IG% - Immature Granulocytes (promyelocytes, myelocytes and metamyelocytes) > 1% indicates that a LEFT SHIFT is Present. Performed By: #### L 501.1800, M100.651, L100.0100, L500.2500 #### [facility] [address] [place], [address] Lymphocytes/100 WBC (Bld) 25.1 % Normal 19-41 [facility] Comment on above: Performed By: #### L 501.1800, M100.651, L100.0100, L500.2500 #### [facility] [address] [place], [address] MCH (RBC) [Entitic mass] 30.8 pg Normal 27.0-32.0 [facility] Comment on above: Performed By: #### L 501.1800, M100.651, L100.0100, L500.2500 #### [facility] [address] [place], [address] MCHC (RBC) [Mass/Vol] 33.5 g/dL Normal 32-36 [facility] Comment on above: Performed By: #### L 501.1800, M100.651, L100.0100, L500.2500 #### [facility] [address] [place], [address] MCV (RBC) [Entitic vol] 92.0 fL Normal 81-99 [facility] Comment on above: Performed By: #### L 501.1800, M100.651, L100.0100, L500.2500 #### [facility] [address] [place], [address] Monocytes/100 WBC (Bld) 9.9 % Normal 0-10 [facility] Comment on above: Performed By: #### L 501.1800, M100.651, L100.0100, L500.2500 #### [facility] [address] [place], [address] Neutrophils/100 WBC (Bld) 62.7 % Normal 47-70 [facility] Comment on above: Performed By: #### L 501.1800, M100.651, L100.0100, L500.2500 #### [facility] [address] [place], [address] Nucleated RBC (Bld) [#/Vol] 0 10*3/uL Normal 0-5 [facility] Comment on above: Performed By: #### L 501.1800, M100.651, L100.0100, L500.2500 #### [facility] [address] [place], [address] Platelet mean volume (Bld) [Entitic vol] 10.6 fL Normal 6.2-12.0 [facility] Comment on above: Performed By: #### L 501.1800, M100.651, L100.0100, L500.2500 #### [facility] [address] [place], [address] Platelets (Bld) [#/Vol] 247 10*3/uL Normal 150-450 [facility] Comment on above: Performed By: #### L 501.1800, M100.651, L100.0100, L500.2500 #### [facility] [address] [place], [address] RBC (Bld) [#/Vol] 4.25 10*6/uL Normal 4.2-5.4 [facility] Comment on above: Performed By: #### L 501.1800, M100.651, L100.0100, L500.2500 #### [facility] [address] [place], [address] RDW SD 43.0 fl Normal 35.1-43.9 [facility] Comment on above: Performed By: #### L 501.1800, M100.651, L100.0100, L500.2500 #### [facility] [address] [place], [address] WBC (Bld) [#/Vol] 6.7 10*3/uL Normal 4.4-11.0 [facility] Comment on above: Performed By: #### L 501.1800, M100.651, L100.0100, L500.2500 #### [facility] [address] [place], [address] Extremity Upper without Cont raon 06-18-2025 Extremity Upper without Contra [facility] [address] [place] [address] Extremity Upper without Contra MR#: [id number] Acct: [id number] Name: ANILA PULLIAM Rep #: [id number] : 1950 F 74 From: Geraldo arguello MD PCP: Nahomy Frank PA-C Status: REG CLI Study: Extremity Upper without Contra Date of Exam: 0 06/18/25 Exam# [id number] Ordering Dr: Phi Virk DO PROCEDURE: EXTREMITY UPPER WITHOUT CONTRA 06/18/2025 REASON FOR EXAM: PRIMARY OSTEOARTHRITIS TECHNIQUE: Procedure Code: CTEUWO Modality: CT Procedure: EXTREMITY UPPER WITHOUT CONTRA Coronal and Sagittal reconstruction series were provided. One or more dose reduction techniques were used (e.g., Automated exposure control, adjustment of the mA and/or kV according to patient size, use of iterative reconstruction technique. RADIATION DOSE SUMMARY: CTDlvol: 44.6 mGy DLP: 1100 mGycm COMPARISON: None FINDINGS: Bones: Bone mineralization is preserved. There is no acute fracture. Joints: Advanced degenerative changes of the left glenohumeral joint. Calcified 5 mm and 12 mm calcified loose bodies in the posterior recess of the joint. Joint effusion. Subchondral cystic changes seen in the glenoid and humeral head. Moderate AC joint arthropathy present. Multilevel spondylosis through the spine. Soft Tissues: Soft tissues around the shoulder are normal. There is a calcified granulomata in the left upper lobe. Subpleural 6 mm nodule seen in the left lower lobe. Remainder of the lung is clear Visualized base of the neck is normal. There is atherosclerosis. Ectasia of the aorta present. No pericardial effusion seen. CT/Extremity Upper without Contra IMPRESSION: Advanced degenerative changes of the glenohumeral joint with joint effusion and multiple calcified loose bodies as described above. Reading Location: [facility] CC: GAVIN Frank; Dr. Phi Virk DO Entomology Professor: Signed Normal [facility] Magnesiumon 06-18-2025 Magnesium [Mass/Vol] 2.3 mg/dL High 1.5-2.2 [facility] Comment on above: Performed By: #### L 501.5200 #### [facility] [address] [place], [address] MR/PAT.ANEon 06-15-2025 MR/PAT.[facility] Medical Records Department [address] [place] [address] PAT - Anesthesia 06/15/25 0850 MR#: [id number] Acct: [id number] Name: GRADYANILA Z Rep #: [id number] : 1950 74 From: Sukhwinder Resendez MD PCP: Nahomy Frank PA-C [place] [facility] [place]: C [place] [facility] [place]-Assessment Diagnosis/Proposed Procedure Planned Operative Procedure(s): LEFT REVERSE TOTAL SHOULDER ARTHROPLASTY Anesthesia History 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 When Was Last Pacemaker Check QUESTION #4 FULL TEXT: You/Your Family Experience fever (hyperthermia) with Anesthesia Last Oral Intake Last Oral intake: Last Oral Intake NPO since Meds taken in AM with sips of water? Meds patient instructed to take am of surgery PONV PONV - campus recruiting internship: PONV - campus recruiting internship Female Yes 06/14/25 08:21 HX of Motion Sickness No 06/14/25 08:21 HX of N/V After Surgery No 06/14/25 08:21 Non-Smoker Yes 06/14/25 08:21 Duration of Surgery greater Yes 06/14/25 08:21 than 60 minutes Number of Risk Factors 3 06/14/25 08:21 PONV Score Moderate Risk 06/14/25 08:21 Respiratory Assessment Respiratory Assessment - campus recruiting internship: Respiratory Tract Infection Hx - campus recruiting internship Hx Respiratory Tract Infection No 06/14/25 08:21 STOP Sleep Apnea STOP Sleep Apnea - campus recruiting internship: STOP Sleep Apnea - campus recruiting internship Hx Hypertension Yes: CONTROLLED WITH MEDS 06/14/25 08:21 Hx Sleep Apnea No 06/14/25 08:21 CPAP BIPAP Do you snore loudly (louder No 06/14/25 08:21 than talking or can be heard Do you often feel tired/ No 06/14/25 08:21 fatigued/ sleepy during daytime? Has anyone observed you stop No 06/14/25 08:21 breathing during sleep? STOP Results Negative 06/14/25 08:21 QUESTION #5 FULL TEXT : Do you snore loudly (louder than talking or can be heard through closed doors)? Tobacco Use History Tobacco Use History - campus recruiting internship: Tobacco Use History - campus recruiting internship Tobacco Use Smoking Status Never smoker 06/14/25 08:21 Hx Tobacco Use No 06/14/25 08:21 Years Smoking Packs Smoked per Day Smoking Cessation Date was within the last 15 years Hx Smoking Cessation Date Hx Smoking Cessation Counseling Hematologic Medial History Hematologic Hx - campus recruiting internship: Hematologic Medical Hx - superintendent house Hx of Blood Transfusion No 06/14/25 08:21 Hx of Transfusion in last 3 No 06/14/25 08:21 Months Date of Last Transfusion (if within last 3 months) Ever experience any problems No 06/14/25 08:21 with transfusion(s)? Specify any problems Hx of Preganancy in last 3 No 06/14/25 08:21 Months Nurse Filling Out Transfusion DSCHRIBER 06/14/25 08:21 Questions: Date: 06/14/25 06/14/25 08:21 Time: 08:22 06/14/25 08:21 Patient unable to answer at this time (ie. confused, unrespo /Reproduction History /Reproductive History - campus recruiting internship: /Reproductive Hx- campus recruiting internship Hx Now No 06/14/25 08:21 Gestational Age (in weeks): EDC: Hx Hx Para Hx Section SAB No 06/14/25 08:21 [facility] Medical History (Updated 06/14/25 @ 10:08 by Linda Youngblood) Wears hearing aid Wears glasses Wears partial dentures Post-menopausal Arthritis High cholesterol Stroke/cerebrovascular accident Non-smoker Leg cramps History of edema Cardiology follow-up encounter Hypertension History of rheumatic fever History of echocardiogram Home Medications ???Medication ???Instructions ???Recorded ???Last Taken ???Type aspirin 81 mg tablet,delayed 81 mg PO DAILY 06/14/25 Unknown Hi story release (Adult Low Dose Aspirin) atorvastatin 40 mg tablet (Lipitor) 40 mg PO QHS 06/14/25 Unknown H istory cholecalciferol (vitamin D3) 50 50 mcg PO DAILY 06/14/25 Unknown H istory mcg (2,000 unit) tablet (Vitamin D3) latanoprost 0.005 % eye drops 1 drp ophthalmic (eye) DAILY 06/14 Unknown History losartan 50 mg tablet 50 mg PO DAILY 06/14/25 Unknown Hi story nifedipine 30 mg tablet,extended 30 mg PO QHS 06/14/25 Unknown Hist ory release omega 5-wbb-raa-fish oil 1,000 mg 1 cap PO DAILY (more content not included)... Normal [facility] Carotid Duplex Ultrasoundon 11-16-2024 Carotid Duplex Ultrasound [facility] [facility] [address] [place] [address] Carotid Duplex Ultrasound 11/16/24 1010 MR#: [id number] Acct: [id number] Name: ANILA PULLIAM Rep #: [id number] : 1950 74 From: Ramon Michael MD Attending Dr: Nahomy Frank PA-C Status: REG CL I Ordering Dr: Nahomy Frank PA-C Date: 11/16/24 Location: [facility] Sex: F C Admitted: Reason For Study: HTN Rt. Velocities/BP Lt. Velocities/BP Prox CCA 139.0/22.6 cm/sec. Prox CCA 166.7/37.1 cm/sec. Mid CCA 121.4/27.0 cm/sec. Mid CCA 124.7/18.8 cm/sec. Dist CCA 86.3/15.1 cm/sec. Dist CCA 84.6/18.8 cm/sec. Prox ICA 76.5/15.1 cm/sec. Prox ICA 65.4/18.8 cm/sec. Mid ICA 86.3/24.9 cm/sec. Mid ICA 66.6/25.9 cm/sec. Dist ICA 102.3/29.8 cm/sec. Dist ICA 82.6/21.2 cm/sec. Rt. ICA/CCA = 0.8. Lt. ICA/CCA = 0.7. Prox ECA 128.0/16.0 cm/sec. Prox ECA 110.1/13.3 cm/sec. Rt. Vert. 56.9/16.3 cm/sec. Lt. Vert. 47.2/10.9 cm/sec. Right Extracranial There is homogeneous, smooth atherosclerotic plaque noted in the right common carotid artery. There is heterogeneous, irregular atherosclerotic plaque noted in the right internal carotid artery. There is intimal thickening but no significant atherosclerotic plaque noted in the right external carotid artery. Antegrade flow is noted in the right vertebral artery. Left Extracranial There is homogeneous, smooth atherosclerotic plaque noted in the left common carotid artery. There is homogeneous, irregular atherosclerotic plaque noted in the left internal carotid artery. There is homogeneous, smooth atherosclerotic plaque noted in the left external carotid artery. Antegrade flow is noted in the left vertebral artery. Procedure Carotid Duplex 75524. This is a Carotid Duplex examination using B-mode, color flow and specral Doppler. Exam performed in department. VL/Carotid Duplex Ultrasound Interpretation Summary Mild (<50%) stenosis right extracranial internal carotid. Mild (<50%) stenosis left extracranial internal carotid. Patent and antegrade vertebrals bilaterally. Ordering Physician: Nahomy Frank Referring Physician: Nahomy Frank Performed By: Kamille Bryant RVT and Student 11/16/24 1734 Date Ramon Michael MD CC: GAVIN Frank Date Dictated: 11/16/24 1010 Date Transcribed: 11/16/241733 Entomology Professor: Signed Normal [facility] Echo Completeon 11-16-2024 Echo Complete [facility] [address] [place] [id number] Echo Complete 11/16/24 1031 MR#: [id number] Acct: [id number] Name: ANILA PULLIAM Rep #: [id number] : 1950 74 From: Piero Jaquez MD Attending Dr: Nahomy Frank PA-C Status: REG CL I Ordering Dr: Nahomy Frank PA-C Date: 11/16/24 Location: [facility] Sex: F C Admitted: Reason For Study: HYPERTENSION Procedure This was a 2D Doppler, Color Flow transthoracic echocardiogram. Exam performed in department. Left Ventricle Normal LV size. Left ventricular systolic function is normal. The left ventricular ejection fraction is 65 %. Stage 1 diastolic dysfunction. No regional wall motion abnormalities noted. Right Ventricle Normal RV size. Normal systolic function. Atria Normal left atrium. Normal right atrium. Mitral Valve Normal mitral valve. Mild (1+) eccentric mitral valve insufficiency. Tricuspid Valve Normal tricuspid valve. Mild (1+) tricuspid valve insufficiency. Pulmonary artery systolic pressure is 25 mmHg. Aortic Valve Trisinus/trileaflet aortic valve. Pulmonic Valve Normal pulmonic valve. Great Vessels Normal aortic root. The pulmonary artery is normal size. Normal inferior vena cava. Pericardium/Pleural No pericardial effusion. MMode/2D Measurements Calculations LVIDd: 3.8 cm IVSd: 1.2 cm LVOT diam: 2.0 cm LVIDs: 2.1 cm LVPWd: 1.1 cm LVOT area: 3.1 cm2 RVDd: 3.9 cm FS: 43.8 % asc Aorta Diam: 3.4 cm LAV(MOD-bp): 50.3 ml LVAd ap4: 23.4 cm2 LAV(MOD-bp) Indexed: 25.5 ml/m2 LVLd ap4: 7.7 cm LAV(MOD-sp2): 49.5 ml EDV(MOD-sp4): 56.6 ml LAV(MOD-sp4): 47.4 ml EDV(sp4-el): 60.4 ml LVAs ap4: 12.0 cm2 LVLs ap4: 6.4 cm ESV(MOD-sp4): 19.1 ml ESV(sp4-el): 19.1 ml EF(MOD-sp4): 66.3 % EF(sp4-el): 68.3 % LVAd ap2: 20.6 cm2 SV(MOD-sp4): 37.5 ml SV(MOD-sp2): 30.1 ml LVLd ap2: 7.8 cm SI(MOD-sp4): 19.0 ml/m2 SI(MOD-sp2): 15.2 ml/m2 EDV(MOD-sp2): 44.6 ml EDV(sp2-el): 46.2 ml LVAs ap2: 10.7 cm2 LVLs ap2: 6.8 cm ESV(MOD-sp2): 14.5 ml ESV(sp2-el): 14.2 ml EF(MOD-sp2): 67.5 % SV(sp4-el): 41.3 ml Ao sinus diam: 2.[address] Junction: 2.7 cm LA dimension(2D): 3.4 cm LA A4 area: 18.0 cm2 RA A4 area: 16.3 cm2 TAPSE: 1.9 cm Time Measurements MV dec time: 0.24 sec Doppler Measurements Calculations MV E max lópez: 74.0 cm/sec Lat Peak E' López: 10.9 cm/sec Med Peak E' López: 8.2 cm/sec MV A max lópez: 90.8 cm/sec E/E' lat: 6.8 E/E' med: 9.0 MV E/A: 0.81 MV dec slope: 306.7 cm/sec2 Ao V2 max: 183.3 cm/sec LV V1 max: 114.8 cm/sec Ao max P.4 mmHg LV V1 max P.3 mmHg Ao V2 mean: 136.8 cm/sec LV V1 mean P.0 mmHg Ao mean P.1 mmHg LV V1 mean: 80.7 cm/sec Ao V2 VTI: 38.3 cm LV V1 VTI: 26.7 cm AV (velocity ratio): 0.70 ANA PAULA(I,D): 2.2 cm2 ANA PAULA(V,D): 2.0 cm2 SV(LVOT): 83.5 ml PA V2 max: 100.6 cm/sec TR max lópez: 229.9 cm/sec TR max P.1 mmHg ECHO/Echo Complete Interpretation Summary Normal LV size. Left ventricular systolic function is normal. The left ventricular ejection fraction is 65 %. Stage 1 diastolic dysfunction. Pulmonary artery systolic pressure is 25 mmHg. Ordering Physician: Nahomy Frank Referring Physician: Nahomy Frank Performed By: Patricia Escobar RDCS 11/16/24 1136 Date Piero Jaquez MD CC: GAVIN Frank Date Dictated: 11/16/24 1031 Date Transcribed: 11/16/24 1136 Entomology Professor: Signed Normal [facility] Renal Artery Duplex Ultrasou ndon 11-16-2024 Renal Artery Duplex Ultrasound [facility] [address] [place] [address] Renal Artery Duplex Ultrasound 11/16/24 0930 MR#: [id number] Acct: [id number] Name: ANILA PULLIAM Rep #: [id number] : 1950 74 From: Ramon Michael MD Attending Dr: Nahomy Frank PA-C Status: REG CL I Ordering Dr: Nahomy Frank PA-C Date: 11/16/24 Location: [facility] Sex: F C Admitted: Reason For Study: HTN Right Renal Artery Left Renal Artery Right renal artery ostium Left renal artery ostium 346.5/69.7 225.1/76.3 RSV/EDV. PSV/EDV. Right renal artery proximal Left renal artery proximal PSV/EDV 253.5/45.5 PSV/EDV. 243.7/38.2 . Right renal artery mid 167.5/50.8 Left renal artery mid 185.8/29.1 PSV/EDV. PSV/EDV . Right renal artery distal Left renal artery distal 112.6/19.2 104.5/34.2 PSV/EDV. PSV/EDV. Right RAR 2.9. Left RAR 3.9. Right Renal Parenchyma Left Renal Parenchyma Upper Pole Medula 24.9/8.4 PSV/EDV. Left upper pole medulla 19.7/5.4 Right upper pole medulla EDR 0.3 . PSV/EDV . Right upper pole medulla R.I. Left upper pole medulla EDR 0.3 . 0.67 . Left upper pole medulla R.I. 0.72 . Upper Ja Cortx 21.2/8.4 PSV/EDV. UP Cortex 18.1/7.1 PSV/EDV. Right upper pole cortex EDR 0.4 . Left upper pole cortex EDR 0.4 . Right upper pole cortex R.I. 0.61 . Left upper pole cortex R.I. 0.61 . Right lower Pole medulla 22.5/9.6 Left lower Pole medulla 50.1/9.0 PSV/EDV . PSV/EDV . Right lower pole medulla EDR 0.4 . Left lower pole medulla EDR 0.2 . Right lower pole medulla R.I. Left lower pole medulla R.I. 0.82 . 0.57 . Lower Pole Cortx 26.4/10.9 PSV/EDV. Lower Pole Cortex 14.5/6.5 PSV/EDV. Left lower pole cortex EDR 0.4 . Right lower pole cortex EDR 0.4 . Left lower pole cortex R.I. 0.59 . Right lower pole cortex R.I. 0.55 . Left Renal Hilar Right Renal Hilar LT Hilar avg 59.0/18.4 PSV/EDV . Right Hilar avg 72.0/27.8 PSV/EDV. Left hilar acceleration time 40 Right hilar acceleration time 70 m/sec. m/sec. Left Renal Dimensions Right Renal Dimensions Left kidney size 10.6 cm . Right kidney size 8.9 cm . Left cortical dimension 1.26 cm . Right cortical dimension 1.14 cm . Aorta Proximal abdominal aorta 2.50x2.27 cm . Proximal abdominal aorta peak systolic velocity is 88.8 cm/sec . Distal abdominal aorta 1.66x1.62 cm . Distal abdominal aorta peak systolic velocity is 107.0 cm/sec . VL/Renal Artery Duplex Ultrasound Interpretation Summary Right renal artery patent with < 60% stenosis. Left renal artery patent with > 60% stenosis. Right renal vein patent. Left renal vein patent. Right kidney diminshed in size. Left kidney normal in size. Ordering Physician: Nahomy Frank Referring Physician: Nahomy Frank Performed By: Kamille Bryant RVT and Student 11/16/241731 Date Ramon Micahel MD CC: GAVIN Frank Date Dictated: 11/16/24929 Date Transcribed: 11/16/241731 Entomology Professor: Signed [facility] CBC Auto Differentialon 10-12 Basophils (Bld) [#/Vol] 0.04 10*3/uL [facility] Basophils/100 WBC (Bld) 0.4 % [facility] Eosinophils (Bld) [#/Vol] 0.07 10*3/uL [facility] Eosinophils/100 WBC (Bld) 0.8 % [facility] Erythrocyte distribution width (RBC) [Entitic vol] 12.6 % 11.6 - 14.8 % [facility] Hematocrit (Bld) [Volume fraction] 45.4 % 36.0 - 46.0 % [facility] Hemoglobin (Bld) [Mass/Vol] 15.3 g/dL 12.0 - 16.0 g/dL [facility] Immature granulocytes (Bld) [#/Vol] 0.04 10*3/uL [facility] Immature granulocytes/100 WBC (Bld) 0.4 % [facility] Comment on above: The IG parameter is the percentage of metamyelocytes, myelocytes and promyelocytes. An immature granulocyte count (IG) of 1% or more suggests the possibility of infection, an IG count of 3% is very likely related to an infection. Lymphocytes (Bld) [#/Vol] 1.58 10*3/uL [facility] Lymphocytes/100 WBC (Bld) 17.1 % [facility] MCH (RBC) [Entitic mass] 30.1 pg 26.0 - 34.0 pg [facility] MCHC (RBC) [Mass/Vol] 33.7 g/dL 31.0 - 37.0 g/dL [facility] MCV (RBC) [Entitic vol] 89.2 fL 80.0 - 100.0 fL [facility] Monocytes (Bld) [#/Vol] 0.55 10*3/uL [facility] Monocytes/100 WBC (Bld) 5.9 % [facility] Neutrophils (Bld) [#/Vol] 6.97 10*3/uL [facility] Neutrophils/100 WBC (Bld) 75.4 % [facility] Nucleated RBC (Bld) [#/Vol] 0 10*3/uL [facility] Nucleated RBC/100 WBC (Bld) [Ratio] 0 % [facility] Platelet mean volume (Bld) [Entitic vol] 10.4 fL 9.4 - 12.4 fL [facility] Platelets (Bld) [#/Vol] 234 10*3/uL [facility] RBC (Bld) [#/Vol] 5.09 10*6/uL [facility] WBC (Bld) [#/Vol] 9.25 10*3/uL [facility] CBC WITH AUTO DIFFERENTIALon 11-01-2024 AUTO NRBC 0.0 % [facility] Comment on above: Performed By: #### L [id number] #### LAB [address] [address] Ramon Martinez M.D. [id number] AUTO NRBC ABS COUNT 0.00 K/mcL Normal 0.00-0.00 [facility] Comment on above: Performed By: #### L [id number] #### LAB [address] [address] Ramon Martinez M.D. [id number] BASOPHILS ABSOLUTE COUNT 0.04 K/mcL Normal 0.00-0.30 [facility] Comment on above: Performed By: #### L [id number] #### LAB [address] [place], [place] [address] Ramon Martinez M.D. [id number] Basophils/100 WBC (Bld) 0.4 % [facility] Comment on above: Performed By: #### L [id number] #### LAB [address] [address] Ramon Martinez M.D. [id number] Eosinophils (Bld) [#/Vol] 0.07 10*3/uL Normal 0.00-0.50 [facility] Comment on above: Performed By: #### L [id number] #### LAB [address] [place] [address] Ramon Martinez M.D. [id number] Eosinophils/100 WBC (Bld) 0.8 % Normal [facility] Comment on above: Performed By: #### L [id number] #### LAB [address] [place] [address] Ramon Martinez M.D. [id number] Erythrocyte distribution width (RBC) [Ratio] 12.6 % Normal 11.6-14.8 [facility] Comment on above: Performed By: #### L [id number] #### LAB [address] [place] [address] Ramon Martinez M.D. [id number] Hematocrit (Bld) [Volume fraction] 45.4 % Normal 36.0-46.0 [facility] Comment on above: Performed By: #### L [id number] #### LAB [address] [place] [address] Ramon Martinez M.D. [id number] Hemoglobin (Bld) [Mass/Vol] 15.3 g/dL Normal 12.0-16.0 [facility] Comment on above: Performed By: #### L [id number] #### LAB [address] [place] [address] Ramon Martinez M.D. [id number] IG ABSOLUTE 0.04 K/mcL Normal 0.00-0.30 [facility] Comment on above: Performed By: #### L [id number] #### LAB [address] [place] [address] Ramon Martinez M.D. [id number] IG PERCENT 0.40 % Normal [facility] Comment on above: Result Comment: The IG parameter is the percentage of metamyelocytes, myelocytes and promyelocytes. An immature granulocyte count (IG) of 1% or more suggests the possibility of infection, an IG count of 3% is very likely related to an infection. Performed By: #### L [id number] #### LAB [address] [address] Ramon Martinez M.D. [id number] Lymphocytes (Bld) [#/Vol] 1.58 10*3/uL Normal 0.90-4.00 [facility] Comment on above: Performed By: #### L [id number] #### LAB [address] [address] Ramon Martinez M.D. [id number] Lymphocytes/100 WBC (Bld) 17.1 % Normal [facility] Comment on above: Performed By: #### L [id number] #### LAB [address] [address] Ramon Martinez M.D. [id number] MCH (RBC) [Entitic mass] 30.1 pg Normal 26.0-34.0 [facility] Comment on above: Performed By: #### L [id number] #### LAB [address] [address] Ramon Martinez M.D. [id number] MCV (RBC) [Entitic vol] 89.2 fL Normal 80.0-100.0 [facility] Comment on above: Performed By: #### L [id number] #### LAB [address] [address] Ramon Martinez M.D. [id number] MEAN CORPUSCULAR HEMOGLOBIN CONC 33.7 g/dL Normal 31.0-37.0 [facility] Comment on above: Performed By: #### L [id number] #### LAB [address] [address] Ramon Martinez M.D. [id number] Monocytes (Bld) [#/Vol] 0.55 10*3/uL Normal 0.30-0.90 [facility] Comment on above: Performed By: #### L [id number] #### LAB [address] [address] Ramon Martinez M.D. [id number] Monocytes/100 WBC (Bld) 5.9 % Normal [facility] Comment on above: Performed By: #### L [id number] #### LAB [address] [address] Ramon Martinez M.D. [id number] NEUTROPHILS ABSOLUTE COUNT 6.97 K/mcL Normal 1.70-7.00 [facility] Comment on above: Performed By: #### L [id number] #### LAB [address] [address] Ramon Martinez M.D. [id number] Neutrophils/100 WBC (Bld) 75.4 % Normal [facility] Comment on above: Performed By: #### L [id number] #### LAB [address] [address] Ramon Martinez M.D. [id number] Platelet mean volume (Bld) [Entitic vol] 10.4 fL Normal 9.4-12.4 [facility] Comment on above: Performed By: #### L [id number] #### LAB [address] [address] Ramon Martinez M.D. [id number] Platelets (Bld) [#/Vol] 234 10*3/uL Normal 150-400 [facility] Comment on above: Performed By: #### L [id number] #### LAB [address] [address] Ramon Martinez M.D. [id number] RBC (Bld) [#/Vol] 5.09 10*6/uL Normal 4.00-5.20 [facility] Comment on above: Performed By: #### L [id number] #### LAB [address] [address] Ramon Martinez M.D. [id number] WBC (Bld) [#/Vol] 9.25 10*3/uL Normal 4.50-11.00 [facility] Comment on above: Performed By: #### L [id number] #### [facility] LAB [address] [address] Ramon Martinez M.D. [id number] [facility] METABOLIC PANE [facility] 11-01-2024 Albumin [Mass/Vol] 4.4 g/dL Normal 3.2-5.2 [facility] Comment on above: Order Comment: [facility] Services has implemented the eGFR calculation approach that does not have a coefficient for race that conforms to the NKF-ASN Task Force Recommendations. Performed By: #### 4 [id number] #### LAB [address] [address] Ramon Martinez M.D. [id number] ALP [Catalytic activity/Vol] 69 U/L Normal 40-150 [facility] Comment on above: Order Comment: [facility] has implemented the eGFR calculation approach that does not have a coefficient for race that conforms to the NKF-ASN Task Force Recommendations. Performed By: #### 4 [id number] #### LAB [address] [address] Ramon Martinez M.D. [id number] ALT [Catalytic activity/Vol] 26 U/L Normal 0-35 U/L [facility] Comment on above: Order Comment: [facility] has implemented the eGFR calculation approach that does not have a coefficient for race that conforms to the NKF-ASN Task Force Recommendations. Performed By: #### 4 6126 #### LAB [address] [address] Ramon Martinez M.D. [id number] Anion gap [Moles/Vol] 16 mmol/L Normal 10-20 [facility] Comment on above: Order Comment: [facility] has implemented the eGFR calculation approach that does not have a coefficient for race that conforms to the NKF-ASN Task Force Recommendations. Performed By: #### 4 6126 #### LAB [address] [address] Ramon Martinez M.D. [id number] AST [Catalytic activity/Vol] 32 U/L Normal 0-35 U/L [facility] Comment on above: Order Comment: [facility] has implemented the eGFR calculation approach that does not have a coefficient for race that conforms to the NKF-ASN Task Force Recommendations. Result Comment: Slig htly Hemolyzed Performed By: #### 4 [id number] #### LAB [address] [address] Ramon Martinez M.D. [id number] Bilirubin [Mass/Vol] 0.6 mg/dL Normal 0.0-1.3 [facility] Comment on above: Order Comment: [facility] has implemented the eGFR calculation approach that does not have a coefficient for race that conforms to the NKF-ASN Task Force Recommendations. Performed By: #### 4 6126 #### LAB [address] [address] Ramon Martinez M.D. [id number] Calcium [Mass/Vol] 9.4 mg/dL Normal 8.4-10.2 [facility] Comment on above: Order Comment: [facility] has implemented the eGFR calculation approach that does not have a coefficient for race that conforms to the NKF-ASN Task Force Recommendations. Performed By: #### 4 6126 #### LAB [address] [address] Ramon Martinez M.D. [id number] Chloride [Moles/Vol] 103 mmol/L Normal 98-108 [facility] Comment on above: Order Comment: [facility] Services has implemented the eGFR calculation approach that does not have a coefficient for race that conforms to the NKF-ASN Task Force Recommendations. Performed By: #### 4 6126 #### LAB [address] [address] Ramon Martinez M.D. [id number] Creatinine [Mass/Vol] 0.87 mg/dL Normal 0.60-1.10 [facility] Comment on above: Order Comment: [facility] has implemented the eGFR calculation approach that does not have a coefficient for race that conforms to the NKF-ASN Task Force Recommendations. Performed By: #### 4 6126 #### LAB [address] [address] Ramon Maritnez M.D. [id number] EGFR 70 mL/min/1.73 m2 Normal >=60 [facility] Comment on above: Order Comment: [facility] has implemented the eGFR calculation approach that does not have a coefficient for race that conforms to the NKF-ASN Task Force Recommendations. Result Comment: Heather mated GFR was calculated using the 2020 CKD-EPI creatinine equation. Performed By: #### 4 6126 #### LAB [address] [address] Ramon Martinez M.D. [id number] Glucose [Mass/Vol] 121 mg/dL High 65-99 [facility] Comment on above: Order Comment: [facility] has implemented the eGFR calculation approach that does not have a coefficient for race that conforms to the NKF-ASN Task Force Recommendations. Performed By: #### 4 6126 #### LAB [address] [address] Ramon Martinez M.D. [id number] HCO3 (Bld) [Moles/Vol] 24 mmol/L Normal 21-32 [facility] Comment on above: Order Comment: [facility] has implemented the eGFR calculation approach that does not have a coefficient for race that conforms to the NKF-ASN Task Force Recommendations. Performed By: #### 4 6126 #### LAB [address] [address] Ramon Martinez M.D. [id number] Potassium [Moles/Vol] 3.6 mmol/L Normal 3.5-5.1 [facility] Comment on above: Order Comment: [facility] has implemented the eGFR calculation approach that does not have a coefficient for race that conforms to the NKF-ASN Task Force Recommendations. Result Comment: Slig htly Hemolyzed Performed By: #### 4 6126 #### LAB [address] [address] Ramon Martinez M.D. [id number] Protein [Mass/Vol] 7.2 g/dL Normal 6.0-8.0 [facility] Comment on above: Order Comment: [facility] has implemented the eGFR calculation approach that does not have a coefficient for race that conforms to the NKF-ASN Task Force Recommendations. Performed By: #### 4 6126 #### LAB [address], [place] [address] Ramon Martinez M.D. [id number] Sodium [Moles/Vol] 139 mmol/L Normal 135-145 [facility] Comment on above: Order Comment: [facility] has implemented the eGFR calculation approach that does not have a coefficient for race that conforms to the NKF-ASN Task Force Recommendations. Performed By: #### 4 6126 #### [facility] LAB [address] [address] Ramon Martinez M.D. [id number] Urea nitrogen [Mass/Vol] 20 mg/dL Normal 8-25 [facility] Comment on above: Order Comment: [facility] has implemented the eGFR calculation approach that does not have a coefficient for race that conforms to the NKF-ASN Task Force Recommendations. Performed By: #### 4 6126 #### LAB [address] [address] Ramon Martinez M.D. [id number] Urea nitrogen/Creatinin e [Mass ratio] 23.0 mg/mg High 10.0-20.0 [facility] Comment on above: Order Comment: [facility] has implemented the eGFR calculation approach that does not have a coefficient for race that conforms to the NKF-ASN Task Force Recommendations. Performed By: #### 4 6126 #### LAB [address] [address] Ramon Martinez M.D. [id number] CONSULTon 11-01-2024 CONSULT Neurology Inpatient Consult [facility] 11/01/2024 Patient: Anila Pulliam Date of : 1950 (74 y.o.) Referring Provider: Refer to consult order in electronic medical record PCP: Nahomy Frank PA-C ASSESSMENT: 74 y.o. female presented to [facility] on 11/01/2024 with history of hypertension who presents for evaluation of right-upper extremity weakness, right facial droop, and slurred speech that she woke up with at 4 AM on 11/01/2024. On arrival, blood pressures were 207/84. NIHSS stroke scale initially Initial NIH stroke scale of 5, subsequently improved to 4 at the time of my evaluation (2 for right facial droop, 1 for right upper extremity, 1 for slight slurred speech). There is also more severe left hand head inspector and center marker strength weakness, that is typically not calculated on a NIH stroke scale. Noncontrast CT revealed a low-density focus in left basal ganglia, however no other acute changes. CT angiogram did not reveal any large vessel occlusions. Patient was not deemed to be a candidate for IV tPA and was loaded with aspirin and Plavix in the ER. Neurology was consulted for further recommendations. Of note, the patient is a [employer], currently without insurance and planning to pay [id number]. While CT head did reveal this low-density focus that could be a potential seizure focus, considering that she presented within a few hours of onset of symptoms, it would be unlikely for the lacunar stroke to show this extent of of encephalomalacia. Unclear if there were any clear cortical signs, although initial NIHSS did assign 1 point to language. No gaze deviation, hemianopia or expressive difficulty was described by patient. While in ideal circumstances, an MRI can clarify etiology of symptoms, overall symptoms appear to be linked to a lacunar stroke. She is currently monitored on telemetry, and unless atrial fibrillation is seen, MRI or echo is unlikely to microsoft exchange architect. Hence will recommend continuing DAPT for 21 days followed by aspirin monotherapy. The patient can follow-up outpatient with results of an outpatient echocardiogram and repeat CT in 3 weeks. If atrial fibrillation is noted however, that plan might change. PLAN: Likely left hemispheric lacunar stroke (Ischemic Infarct) - Location: Unclear - Etiology: Lacunar/small vessel Testing: No further neurologic testing inpatient, apart from lipid panel. Repeat CT head and echocardiogram as an outpatient Labs: HbA1c 5.6, lipid panel pending Cardiac Rhythm: NO Afib noted to date Continue the following medications for stroke prevention: Anti-thrombotic: Plavix and ASA 81 mg for 21 days, then d/c Plavix .continue statin therapy Blood pressure goal - Permissive hypertension (blood pressure less than 220/120 mmHg for 48 hours and then gradually normalize over 5 to 7 days), gentle IV hydration and head of bed flat. LDL goal < 70, Hemoglobin A1c goal 6.5 or lower, Educated on the importance of adequate sleep, exercise (30 minutes brisk exercise 5 days per week), hydration (at least 64 oz of water daily), and mediterranean style diet were discussed. Extensive stroke prevention teaching provided today. All questions and concerns were addressed. Mulu Caro MD Staff Neurologist DIAGNOSTIC TESTING SUMMARY: Pending Lab and Radiology Results Order Current Status Hemoglobin A1c In process Resulted Testing: (MRI/CT/XR, EEG, EMG, CSF, Cardiac, Labs) CT head\11/01/2023 1. Low-density focus in the left basal ganglia may correlate with age-indeterminate lacunar infarct or prominent perivascular space. MRI could be considered if clinical symptoms warrant. 2. No acute hemorrhage or midline shift. CT angiogram of the head and neck 11/01/2023 1. No proximal intracranial arterial occlusion or high-grade stenosis. No intracranial aneurysm or vascular malformation. 2. No significant carotid or vertebral artery stenosis in the neck. No acute dissection. SUBJECTIVE: Chief Complaint/Reason for Consult: Acute ischemic stroke Informant(s): Patient, , Care Team/Chart History of Present Illness: Anila Pulliam is a 74 y.o. female with history of hypertension who presents for evaluation of right-upper extremity weakness, right facial droop, and slurred speech that she woke up with at 4 AM on 11/01/2024. On arrival, blood pressures were 207/84. NIHSS stroke scale initially Initial NIH stroke scale of 5, subsequently improved to 4 at the time of my evaluation (2 for right facial droop, 1 for right upper extremity, 1 for slight slurred speech). There is also more severe left hand head inspector and center marker strength weakness, that is typically not calculated on a NIH stroke scale. Noncontrast CT revealed a low-density focus in left basal ganglia, however no other acute changes. CT angiogram did not reveal any large vessel occlusions. Patient was not deemed to be a candidate for IV tPA and was sarkis (more content not included)... [facility] CT ANGIOGRAM HEAD NECK (STRO KE)on 11-01-2024 CT ANGIOGRAM HEAD NECK (STROKE) EXAMINATION: CT ANGIOGRAM HEAD NECK (STROKE) HISTORY: ORDERING SYSTEM PROVIDED HISTORY: STROKE PROTOCOL, TECHNOLOGIST PROVIDED HISTORY: Illness/Other Reason for exam: STROKE PROTOCOL, Right sided facial droop, right sidedweakness, right decreased sensory, slurred speech, LAMS 5 Encounter Type: Initial Additional signs and symptoms: LKW 0500 ORDERING SYSTEM PROVIDED DIAGNOSIS CODES: COMPARISON: CT head, 11/01/2024. TECHNIQUE: Dose reduction techniques were achieved by using automated exposure control and/or adjustment of mA and/or kV according to patient size and/or use of iterative reconstruction technique. Carotid stenosis was measured utilizing NASCET criteria. 3D volume-rendered images were also created on a separate workstation by the interpreting radiologist and submitted as part of the examination. Postcontrast axial CT angiogram images obtained through the head and neck. Reconstructions obtained in the sagittal and coronal planes. CONTRAST: IOPAMIDOL 370 MG IODINE/ML (76 %) INTRAVENOUS SOLUTION - 75 mL, FINDINGS: CTA brain: Distal internal carotid arteries are normal in caliber. Anterior cerebral arteries are normal. Middle cerebral arteries are normal. Distal vertebral arteries are normal. Basilar artery is normal. Cerebellar arteries appear normal. Posterior cerebral arteries are normal. No proximal arterial occlusion. No significant intracranial arterial stenosis appreciated. No aneurysm. No vascular malformation. Venous sinuses are patent. CTA neck: No stenosis of the common carotid arteries. There is atherosclerotic plaque at the carotid bifurcations, left greater than right, without a significant stenosis. No significant stenosis of the internal carotid arteries. Vertebral arteries are normal in caliber. No carotid or vertebral artery stenosis in the neck. No acute dissection. No neck mass or lymphadenopathy in the neck. No suspicious osseous lesion. IMPRESSION: 1. No proximal intracranial arterial occlusion or high-grade stenosis. No intracranial aneurysm or vascular malformation. 2. No significant carotid or vertebral artery stenosis in the neck. No acute dissection. DMG/ads Workstation ID: [id number] Dictated by: DONIS CERRATO on WedNov 01, 2024 7:23:15 AM EST Transcribed by: YOAN JANUARY on WedNov 01, 2024 8:10:50 AM EST Finalized by: DONIS CERRATO on WedNov 01, 2024 6:16:14 PM EST [facility] Comment on above: Order Comment: Injur y/Trauma or Illness?:Illness/Other How long have you had these symptoms (acute/chronic)?:Acute Reason for exam?:STROKE PROTOCOL, Right sided facial droop, right sidedweakness, right decreased sensory, slurred speech, LAMS 5 Type of Exam?:Initial Additional signs and symptoms?:LKW 0500 CT HEAD WITHOUT CONTRAST (ST RO)on 11-01-2024 CT HEAD WITHOUT CONTRAST (STROKE) EXAMINATION: CT HEAD WITHOUT CONTRAST (STROKE) HISTORY: ORDERING SYSTEM PROVIDED HISTORY: cva symptoms, TECHNOLOGIST PROVIDED HISTORY: Illness/Other Reason for exam: Level 1 stroke alert, Right sided facial droop, right sidedweakness, right decreased sensory, slurred speech, LAMS 5 Encounter Type: Initial Additional signs and symptoms: LKW 0500 ORDERING SYSTEM PROVIDED DIAGNOSIS CODES: COMPARISON: None TECHNIQUE: Multiple axial unenhanced CT images of head were supplemented with 2D coronal and sagittal reformations. Dose reduction techniques were achieved by using automated exposure control and/or adjustment of mA and/or kV according to patient size and/or use of iterative reconstruction technique. CONTRAST: None. FINDINGS: There is no evidence of acute intracranial hemorrhage, midline shift or abnormal extra-axial fluid collection identified. Low-density focus at the inferior left basal ganglia. This could be related to age-indeterminate lacunar infarct or prominent perivascular space. The ventricles appear symmetric. Basilar cisterns and posterior fossa structure details appear preserved. Visualized orbital structures appear unremarkable. Mucous retention cyst in the right maxillary sinus. Mastoid air cells appear clear. Prominent degeneration of the temporomandibular joints. No calvarial fracture is seen. IMPRESSION: 1. Low-density focus in the left basal ganglia may correlate with age-indeterminate lacunar infarct or prominent perivascular space. MRI could be considered if clinical symptoms warrant. 2. No acute hemorrhage or midline shift. Results were called by Dr. Gabriel Sarmiento to Dr. DEIRDRE REBOLLEDO on 11/01/2024 at 06:47. MPH/ges Workstation ID: [id number] Dictated by: GABRIEL SARMIENTO on WedNov 01, 2024 6:48:07 AM EST Transcribed by: CEDRIC GUZMÁN on WedNov 01, 2024 7:37:12 AM EST Finalized by: GABRIEL SARMIENTO on WedNov 01, 2024 8:00:41 AM EST [facility] Comment on above: Order Comment: Injur y/Trauma or Illness?:Illness/Other How long have you had these symptoms (acute/chronic)?:Acute Reason for exam?:Level 1 stroke alert, Right sided facial droop, right sidedweakness, right decreased sensory, slurred speech, LAMS 5 Type of Exam?:Initial Additional signs and symptoms?:LKW 0500 CT Head WO contraston 2024 1. Low-density focus in the left basal ganglia may correlate with age-indeterminate lacunar infarct or prominent perivascular space. MRI could be considered if clinical symptoms warrant. 2. No acute hemorrhage or midline shift. Results were called by Dr. Gabriel Sarmiento to Dr. DEIRDRE REBOLLEDO on 11/01/2024 at 06:47. MPH/ges Workstation ID: [id number] [employer] EXAMINATION: CT HEAD WITHOUT CONTRAST (STROKE) HISTORY: ORDERING SYSTEM PROVIDED HISTORY: cva symptoms, TECHNOLOGIST PROVIDED HISTORY: Illness/Other Reason for exam: Level 1 stroke alert, Right sided facial droop, right sidedweakness, right decreased sensory, slurred speech, LAMS 5 Encounter Type: Initial Additional signs and symptoms: [facility] 050 ORDERING SYSTEM PROVIDED DIAGNOSIS CODES: COMPARISON: None TECHNIQUE: Multiple axial unenhanced CT images of head were supplemented with 2D coronal and sagittal reformations. Dose reduction techniques were achieved by using automated exposure control and/or adjustment of mA and/or kV according to patient size and/or use of iterative reconstruction technique. CONTRAST: None. FINDINGS: There is no evidence of acute intracranial hemorrhage, midline shift or abnormal extra-axial fluid collection identified. Low-density focus at the inferior left basal ganglia. This could be related to age-indeterminate lacunar infarct or prominent perivascular space. The ventricles appear symmetric. Basilar cisterns and posterior fossa structure details appear preserved. Visualized orbital structures appear unremarkable. Mucous retention cyst in the right maxillary sinus. Mastoid air cells appear clear. Prominent degeneration of the temporomandibular joints. No calvarial fracture is seen. [facility] Gabriel Sarmiento, DO - 11/01/2024 EXAMINATION: CT HEAD WITHOUT CONTRAST (STROKE) HISTORY: ORDERING SYSTEM PROVIDED HISTORY: cva symptoms, TECHNOLOGIST PROVIDED HISTORY: Illness/Other Reason for exam: Level 1 stroke alert, Right sided facial droop, right sidedweakness, right decreased sensory, slurred speech, LAMS 5 Encounter Type: Initial Additional signs and symptoms: [facility] 0500 ORDERING SYSTEM PROVIDED DIAGNOSIS CODES: COMPARISON: None TECHNIQUE: Multiple axial unenhanced CT images of head were supplemented with 2D coronal and sagittal reformations. Dose reduction techniques were achieved by using automated exposure control and/or adjustment of mA and/or kV according to patient size and/or use of iterative reconstruction technique. CONTRAST: None. FINDINGS: There is no evidence of acute intracranial hemorrhage, midline shift or abnormal extra-axial fluid collection identified. Low-density focus at the inferior left basal ganglia. This could be related to age-indeterminate lacunar infarct or prominent perivascular space. The ventricles appear symmetric. Basilar cisterns and posterior fossa structure details appear preserved. Visualized orbital structures appear unremarkable. Mucous retention cyst in the right maxillary sinus. Mastoid air cells appear clear. Prominent degeneration of the temporomandibular joints. No calvarial fracture is seen. IMPRESSION: 1. Low-density focus in the left basal ganglia may correlate with age-indeterminate lacunar infarct or prominent perivascular space. MRI could be considered if clinical symptoms warrant. 2. No acute hemorrhage or midline shift. Results were called by Dr. Gabriel Sarmiento to Dr. DEIRDRE REBOLLEDO on 11/01/2024 at 06:47. MPH/ges Workstation ID: [id number] [facility] Radiology Study observation (narrative) [facility] CT Head WO contrastOrdered B y: Gabriel Sarmiento on 11-01-2024 [facility] Work Phone: CTA Head vessels and Neck ve ssels W contrast Jt 11-01-2024 1. No proximal intracranial arterial occlusion or high-grade stenosis. No intracranial aneurysm or vascular malformation. 2. No significant carotid or vertebral artery stenosis in the neck. No acute dissection. DMG/ads Workstation ID: [id number] [employer] [facility] EXAMINATION: CT ANGIOGRAM HEAD NECK (STROKE) HISTORY: ORDERING SYSTEM PROVIDED HISTORY: STROKE PROTOCOL, TECHNOLOGIST PROVIDED HISTORY: Illness/Other Reason for exam: STROKE PROTOCOL, Right sided facial droop, right sidedweakness, right decreased sensory, slurred speech, LAMS 5 Encounter Type: Initial Additional signs and symptoms: LKW 0500 ORDERING SYSTEM PROVIDED DIAGNOSIS CODES: COMPARISON: CT head, 11/01/2024. TECHNIQUE: Dose reduction techniques were achieved by using automated exposure control and/or adjustment of mA and/or kV according to patient size and/or use of iterative reconstruction technique. Carotid stenosis was measured utilizing NASCET criteria. 3D volume-rendered images were also created on a separate workstation by the interpreting radiologist and submitted as part of the examination. Postcontrast axial CT angiogram images obtained through the head and neck. Reconstructions obtained in the sagittal and coronal planes. CONTRAST: IOPAMIDOL 370 MG IODINE/ML (76 %) INTRAVENOUS SOLUTION - 75 mL, FINDINGS: CTA brain: Distal internal carotid arteries are normal in caliber. Anterior cerebral arteries are normal. Middle cerebral arteries are normal. Distal vertebral arteries are normal. Basilar artery is normal. Cerebellar arteries appear normal. Posterior cerebral arteries are normal. No proximal arterial occlusion. No significant intracranial arterial stenosis appreciated. No aneurysm. No vascular malformation. Venous sinuses are patent. CTA neck: No stenosis of the common carotid arteries. There is atherosclerotic plaque at the carotid bifurcations, left greater than right, without a significant stenosis. No significant stenosis of the internal carotid arteries. Vertebral arteries are normal in caliber. No carotid or vertebral artery stenosis in the neck. No acute dissection. No neck mass or lymphadenopathy in the neck. No suspicious osseous lesion. [employer] Donis Wong MD - 11/01/2024 EXAMINATION: CT ANGIOGRAM HEAD NECK (STROKE) HISTORY: ORDERING SYSTEM PROVIDED HISTORY: STROKE PROTOCOL, TECHNOLOGIST PROVIDED HISTORY: Illness/Other Reason for exam: STROKE PROTOCOL, Right sided facial droop, right sidedweakness, right decreased sensory, slurred speech, LAMS 5 Encounter Type: Initial Additional signs and symptoms: W 0500 ORDERING SYSTEM PROVIDED DIAGNOSIS CODES: COMPARISON: CT head, 11/01/2024. TECHNIQUE: Dose reduction techniques were achieved by using automated exposure control and/or adjustment of mA and/or kV according to patient size and/or use of iterative reconstruction technique. Carotid stenosis was measured utilizing NASCET criteria. 3D volume-rendered images were also created on a separate workstation by the interpreting radiologist and submitted as part of the examination. Postcontrast axial CT angiogram images obtained through the head and neck. Reconstructions obtained in the sagittal and coronal planes. CONTRAST: IOPAMIDOL 370 MG IODINE/ML (76 %) INTRAVENOUS SOLUTION - 75 mL, FINDINGS: CTA brain: Distal internal carotid arteries are normal in caliber. Anterior cerebral arteries are normal. Middle cerebral arteries are normal. Distal vertebral arteries are normal. Basilar artery is normal. Cerebellar arteries appear normal. Posterior cerebral arteries are normal. No proximal arterial occlusion. No significant intracranial arterial stenosis appreciated. No aneurysm. No vascular malformation. Venous sinuses are patent. CTA neck: No stenosis of the common carotid arteries. There is atherosclerotic plaque at the carotid bifurcations, left greater than right, without a significant stenosis. No significant stenosis of the internal carotid arteries. Vertebral arteries are normal in caliber. No carotid or vertebral artery stenosis in the neck. No acute dissection. No neck mass or lymphadenopathy in the neck. No suspicious osseous lesion. IMPRESSION: 1. No proximal intracranial arterial occlusion or high-grade stenosis. No intracranial aneurysm or vascular malformation. 2. No significant carotid or vertebral artery stenosis in the neck. No acute dissection. DMG/ads Workstation ID: [id number] [facility] Radiology Study observation (narrative) [facility] CTA Head vessels and Neck ve ssels W contrast IVOrdered By: Donis Cerrato on 11-01-2024 [facility] Work Phone: Comprehensive metabolic 2000 panelOrdered By: Skylar Marroquin on 11-01-2024 Albumin [Mass/Vol] 4.4 g/dL 3.2 - 5.2 g/dL [facility] ALP [Catalytic activity/Vol] 69 U/L 40 - 150 U/L [facility] ALT [Catalytic activity/Vol] 26 U/L 0-35 U/L [facility] Anion gap [Moles/Vol] 16 mmol/L 10 - 20 mmol/L [facility] AST [Catalytic activity/Vol] 32 U/L 0-35 U/L [facility] Comment on above: Slightly Hemolyzed Bilirubin [Mass/Vol] 0.6 mg/dL 0.0 - 1.3 mg/dL [facility] Calcium [Mass/Vol] 9.4 mg/dL 8.4 - 10. 2 mg/dL [facility] Chloride [Moles/Vol] 103 mmol/L 98 - 108 mmol/L [facility] Creatinine [Mass/Vol] 0.87 mg/dL 0.60 - 1.10 mg/dL [facility] GFR/1.73 sq M.predicted CKD-EPI (S/P/Bld) [Vol rate/Area] 70 - PINF [facility] Comment on above: Estimated GFR was ca lculated using the 2020 CKD-EPI creatinine equation. Glucose [Mass/Vol] 121 mg/dL High 65 - 99 mg/dL [facility] HCO3 [Moles/Vol] 24 mmol/L 21 - 32 mmol/L [facility] Interpretation and review of laboratory results Abnormal [facility] Potassium [Moles/Vol] 3.6 mmol/L 3.5 - 5.1 mmol/L [facility] Comment on above: Slightly Hemolyzed Protein [Mass/Vol] 7.2 g/dL 6.0 - 8.0 g/dL [facility] Sodium [Moles/Vol] 139 mmol/L 135 - 145 mmol/L [facility] Urea nitrogen [Mass/Vol] 20 mg/dL 8 - 25 mg/dL [facility] Urea nitrogen/Creatinin e [Mass ratio] 23 mg/mg High 10.0 - 20.0 [facility] has implemented the eGFR calculation approach that does not have a coefficient for race that conforms to the NKF-ASN Task Force Recommendations. [facility] ECG 12- Leadon 11-01-2024 Atrial Rate 80 BPM [facility] P [place] 64 degrees [facility] P-R Interval 166 ms [facility] Q-T Interval 394 ms [facility] QRS Duration 92 ms [facility] QTC Calculation (Bezet) 454 ms [facility] R [place] 61 degrees [facility] T [place] 43 degrees [facility] Ventricular Rate 80 BPM [facility] Normal sinus rhythm with sinus arrhythmia Possible Left atrial enlargement Nonspecific ST abnormality Abnormal ECG ECG Cart Interpretation see physician note for interpretation. Confirmed by Rachael Osorio ([id number]) on 11/01/2024 3:48:36 PM MUSE [facility] ED Procedureon 11-01-2024 ED Procedure EKG: Obtained at 8:3 4 AM and read by me at the same time Rhythm: Sinus Rate: 80 [place] within normal limits Interval [place] QRS and QTc are grossly within normal limits. Patient does have some nonspecific ST and T wave abnormalities with mainly focused on 2 3 aVF in addition to V5 and V6 There is no ST elevations in contiguous leads with reciprocal depression to suggest coronary infarct otherwise. AUTHENTICATED BY TEJ MELISSA, ON 11/01/2024 08:42:40 [facility] ED Prov Noteon 11-01-2024 ED Prov Note [facility] ED note NAME: Anila Pulliam 74 y.o. CSN: [id number] PCP: Nahomy Frank PA-C History: Chief Complaint: Stroke Alert HPI: Patient is a 74-year-old female history of hypertension brought to the ED as a level 1 stroke alert with a LAMS score of 3 and a last known well of 0500 today 11/01/2024. Patient said she was up this morning family noted the right facial droop, patient denies previous history of CAD CA PE pneumothorax denies history of CVA, upon arrival to the ED she is noted to have significant right facial droop right upper and lower extremity weakness her initial GCS is 15 initial NIHSS is 6 stroke alert activated prior to arrival to the ED , patient immediately taken to CT scan for imaging and virtual neurology will be consulted. Patient is not on anticoagulant and initial blood glucose is 131. PMHx: Past Medical History: Diagnosis Date Hypertension PMSx: Past Surgical History: Procedure Laterality Date CHOLECYSTECTOMY WISDOM TOOTH EXTRACTION Bilateral FAM. Hx: Family History Problem Relation Age of Onset Hypertension Mother Diabetes Father SOC. Hx: Social History Socioeconomic History Marital status: Tobacco Use Smoking status: Never Passive exposure: Never Smokeless tobacco: Never Substance and Sexual Activity Alcohol use: Not Currently Drug use: Not Currently Social Drivers of Health Food Insecurity: No Food Insecurity (11/01/2024) Hunger Vital Sign Worried About Running Out of Food in the Last Year: Never true Ran Out of Food in the Last Year: Never true Transportation Needs: No Transportation Needs (11/01/2024) PRAPARE - Transportation Lack of Transportation (Medical): No Lack of Transportation (Non-Medical): No Housing Stability: Low Risk (11/01/2024) Housing Stability Vital Sign Unable to Pay for Housing in the Last Year: No Number of Times Moved in the Last Year: 0 Homeless in the Last Year: No MEDs: Previous Medications Medication Sig latanoprost (XALATAN) 0.005 % ophthalmic solution Administer 1 (one) drop to both eyes at bedtime . losartan (COZAAR) 50 MG tablet Take 1 (one) tablet (50 mg total) by mouth daily . multivitamin per tablet Take 1 (one) tablet by mouth daily . verapamil sr (CALAN-SR) 120 MG er tablet Take 1 (one) tablet (120 mg total) by mouth daily . ALL: No Known Allergies ROS: Review of Systems Positives and pertinent negatives as per HPI. All other systems were reviewed and are negative. Physical Exam: Patient Vitals for the past 24 hrs: BP Temp Temp src Pulse Resp SpO2 Height Weight 11/02/24 0324 (!) 180/99 98.3 degrees F (36.8 degrees C) Oral 80 18 92 % -- -- 11/01/24 2311 (!) 168/79 98.6 degrees F (37 degrees C) Oral 83 14 93 % -- -- 11/01/242024 (!) 185/78 98.9 degrees F (37.2 degrees C) Oral 72 16 95 % -- -- 11/01/241999 -- -- -- -- 16 -- -- -- 11/01/24 181 (!) 180/ 99.2 degrees F (37.3 degrees C) Oral 87 18 96 % -- -- 11/01/24 1810 -- -- -- -- -- -- 5' 7 93.1 kg (205 lb 4 oz) 11/01/24 1700 (!) 167/70 -- -- -- -- -- -- -- 11/01/24 1555 (!) 181/ 98.8 degrees F (37.1 degrees C) -- 82 18 94 % -- -- 11/01/24 1415 (!) 172/81 -- -- 68 (!) 19 93 % -- -- 11/01/24 1400 (!) 189/86 -- -- 70 18 93 % -- -- 11/01/24 1315 (!) 163/91 -- -- 70 16 94 % -- -- 11/01/24 1300 (!) 165/80 -- -- 68 16 95 % -- -- 11/01/24 1145 (!) 164/79 -- -- 77 17 95 % -- -- 11/01/24 1115 (!) 164/84 -- -- 74 (!) 19 95 % -- -- 11/01/24 1100 (!) 162/90 -- -- 79 (!) 21 95 % -- -- 11/01/24 1015 (!) 190/89 -- -- 75 (!) 19 94 % -- -- 11/01/24 0930 (!) 205/98 -- -- 85 (!) 23 96 % -- -- 11/01/24 0845 (!) 195/81 -- -- 73 (!) 20 94 % -- -- 11/01/24 0830 (!) 208/106 -- -- 84 (!) 20 96 % -- -- 11/01/24 0800 (!) 151/118 -- -- 77 (!) 20 97 % -- -- 11/01/24 0715 (!) 172/80 -- -- 76 (!) 20 95 % -- -- Physical Exam Vitals and nursing note reviewed. Constitutional: General: She is not in acute distress. Appearance: Normal appearance. HENT: Head: Normocephalic and atraumatic. Eyes: Pupils: Pupils are equal, round, and reactive to light. Cardiovascular: Rate and Rhythm: Normal rate. Musculoskeletal: General: Normal range of motion. Cervical back: Normal range of motion and neck supple. Pulmonary: Effort: Pulmonary effort is normal. No respiratory distress. Breath sounds: Normal breath sounds. No stridor. Abdominal: General: Abdomen is flat. Bowel sounds are normal. Palpations: Abdomen is soft. Tenderness: There is no abdominal tenderness. There is no guarding. Skin: General: Skin is warm. Neurological: Mental Status: She is alert and oriented to person, place, and time. Comments: Right facial droop, right upper and lower extremity weakness. Slurring of her speech. Psychiatric: Mood and Affect: Mood normal. NIH Scale: LOC: 0 - alert LOC Questions: 0 - answers both correctly LOC Commands: 0 - performs both correctly B (more content not included)... Normal [facility] EKGon 11-01-2024 [facility] Glucose (Bld) [Mass/Vol]on 0 11-01-2024 Glucose [Mass/Vol] 140 mg/dL High 65 - 99 mg/dL [facility] Interpretation and review of laboratory results Abnormal [facility] HEMOGLOBIN A1Con 11-01-2024 Glucose [Mass/Vol] 114 mg/dL Normal 74-114 [facility] Comment on above: Performed By: #### [id number] #### [facility] [address], [place] [address] Ramon Martinez M.D. [id number] HbA1c (Bld) [Mass fraction] 5.6 % Normal 4.2-5.6 [facility] Comment on above: Performed By: #### 4 [id number] #### [facility] [address], [place] [address] Ramon Martinez M.D. [id number] HbA1c (Bld) [Mass fraction]o n 11-01-2024 Average glucose Estimated from glycated hemoglobin (Bld) [Mass/Vol] 114 mg/dL 74 - 114 mg/dL [facility] Interpretation and review of laboratory results Normal [facility] Hemoglobin A1con 11-01-2024 HbA1c (Bld) [Mass fraction] 5.6 % 4.2 - 5.6 % [facility] LIPID PANELon 11-01-2024 Cholesterol [Mass/Vol] 204 mg/dL High 100-199 [facility] Comment on above: Performed By: #### [id number] #### [facility] [address], [place] [address] Ramon Martinez M.D. [id number] Cholesterol in HDL [Mass/Vol] 75 mg/dL Normal 40-59 [facility] Comment on above: Performed By: #### 4 [id number] #### LAB [address] [address] Ramon Martinez M.D. [id number] Cholesterol.total/ Cholesterol in HDL [Mass ratio] 2.7 {ratio} Normal [facility] Comment on above: Result Comment: Fema le Cholesterol/HDL Ratio: Average risk: 4.4 1/2 average risk: 3.3 2 x average risk: 7.1 Performed By: #### 4 [id number] #### LAB [address] [address] Ramon Martinez M.D. [id number] LDL CHOLESTEROL CALCULATED 110 mg/dL Normal 10-130 [facility] Comment on above: Result Comment: [place] [employer] Cholesterol Education Program Guidelines: LDL Cholesterol Optimal: <100 mg/dL Near Optimal/above Optimal: 100-129 mg/dL Borderline High: 130-159 mg/dL High: 160-189 mg/dL Very High: greater than or equal to 190 mg/dL Performed By: #### 4 [id number] #### [facility] [address] [address] Ramon Martinez M.D. [id number] NON HDL CHOL 129 mg/dL [facility] Comment on above: Result Comment: [place] [employer] Cholesterol Education Program Guidelines: NON HDL Cholesterol Desirable: <130 mg/dL Borderline High: 130-159 mg/dL High: 160-189 mg/dL Very High: > or = 190 mg/dL Performed By: #### 4 [id number] #### [facility] [address], [place] [address] Ramon Martinez M.D. [id number] Triglyceride [Mass/Vol] 96 mg/dL Normal 30-150 [facility] Comment on above: Performed By: #### 4 [id number] #### LAB [address], [place] [address] Ramon Martinez M.D. [id number] Lipid 1996 panelon 5 Cholesterol [Mass/Vol] 204 mg/dL High 100 - 199 mg/dL [facility] Cholesterol in HDL [Mass/Vol] 75 mg/dL 40 - 59 mg/dL [facility] Cholesterol in LDL [Mass/Vol] 110 mg/dL 10 - 130 mg/dL [facility] Comment on above: National Cholesterol Education Program Guidelines: LDL Cholesterol Optimal: <100 mg/dL Near Optimal/above Optimal: 100-129 mg/dL Borderline High: 130-159 mg/dL High: 160-189 mg/dL Very High: greater than or equal to 190 mg/dL Cholesterol non HDL [Mass/Vol] 129 mg/dL [facility] Comment on above: National Cholesterol Education Program Guidelines: NON HDL Cholesterol Desirable: <130 mg/dL Borderline High: 130-159 mg/dL High: 160-189 mg/dL Very High: > or = 190 mg/dL Cholesterol.total/ Cholesterol in HDL [Mass ratio] 2.7 {ratio} ratio [facility] Comment on above: Female Cholesterol/H DL Ratio: Average risk: 4.4 1/2 average risk: 3.3 2 x average risk: 7.1 Interpretation and review of laboratory results Abnormal [facility] Triglyceride [Mass/Vol] 96 mg/dL 30 - 150 mg/dL [facility] No Panel Informationon 11-01 Extra Tube Hold for add-ons. [facility] Comment on above: Auto resulted. [facility] P[facility] Glucose [Mass/Vol] 140 mg/dL High 65-99 [facility] Comment on above: Performed By: #### 4 [id number] #### LAB [address], [place] [address] Ramon Martinez M.D. [id number] TROPONINon 11-01-2024 BASELINE TROPONIN T NG/L 9 ng/L Normal <=14 [facility] Comment on above: Performed By: #### 4 [id number] #### LAB [address], [place] [address] Ramon Martinez M.D. [id number] TROPONIN T INTERPRETATION Normal Normal [facility] Comment on above: Performed By: #### 4 [id number] #### LAB [address], [place] [address] Ramon Martinez M.D. [id number] Troponin x 2 (Now and Repeat in 3 hours)on 11-01-2024 Troponin T 9 ng/L NINF - 14 ng/L [facility] Troponin T Interpretation Normal [facility] XR CHEST PA/APon 11-01-2024 XR CHEST PA/AP EXAMINATION: XR CHEST PA/AP HISTORY: ORDERING SYSTEM PROVIDED HISTORY: cva symptoms, TECHNOLOGIST PROVIDED HISTORY: Illness/Other Reason for exam: CAV symptoms Cancer History: u Surgery, RadiationHistory: u Encounter Type: Initial Additional signs and symptoms: n ORDERING SYSTEM PROVIDED DIAGNOSIS CODES: COMPARISON: PA and lateral views of the chest dated 06/20/2012. TECHNIQUE: AP upright portable chest radiograph performed. FINDINGS: The trachea is midline. Stable mild prominence of the cardiac silhouette. Stable mild atheromatous calcification at the aortic arch. Stable hilar shadows which are unremarkable. There is no consolidation, pleural effusion or pulmonary vascular congestion. There is no pneumothorax or acute osseous abnormality. 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 IMPRESSION: There is no acute cardiopulmonary process. Workstation ID: [id number] Dictated by: TIARRA COLVIN on WedNov 01, 2024 7:14:13 AM EST Transcribed by: TIARRA COLVIN on WedNov 01, 2024 7:14:13 AM EST Finalized by: TIARRA COLVIN on WedNov 01, 2024 7:14:13 AM EST Normal [facility] Comment on above: Order Comment: Injur y/Trauma or Illness?:Illness/Other How long have you had these symptoms (acute/chronic)?:Acute Reason for exam?:CAV symptoms History of cancer?:u Surgeries, chemotherapy, or radiation?:u Type of Exam?:Initial Additional signs and symptoms?:n XR Chest PA and Abdomen APon 11-01-2024 There is no acute cardiopulmonary process. Workstation ID: [id number] [employer] EXAMINATION: XR CHEST PA/AP HISTORY: ORDERING SYSTEM PROVIDED HISTORY: cva symptoms, TECHNOLOGIST PROVIDED HISTORY: Illness/Other Reason for exam: CAV symptoms Cancer History: u Surgery, RadiationHistory: u Encounter Type: Initial Additional signs and symptoms: n ORDERING SYSTEM PROVIDED DIAGNOSIS CODES: COMPARISON: PA and lateral views of the chest dated 06/20/2012. TECHNIQUE: AP upright portable chest radiograph performed. FINDINGS: The trachea is midline. Stable mild prominence of the cardiac silhouette. Stable mild atheromatous calcification at the aortic arch. Stable hilar shadows which are unremarkable. There is no consolidation, pleural effusion or pulmonary vascular congestion. There is no pneumothorax or acute osseous abnormality. 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 [facility] Tiarra Colvin MD - 11/01/2024 EXAMINATION: XR CHEST PA/AP HISTORY: ORDERING SYSTEM PROVIDED HISTORY: cva symptoms, TECHNOLOGIST PROVIDED HISTORY: Illness/Other Reason for exam: CAV symptoms Cancer History: u Surgery, RadiationHistory: u Encounter Type: Initial Additional signs and symptoms: n ORDERING SYSTEM PROVIDED DIAGNOSIS CODES: COMPARISON: PA and lateral views of the chest dated 06/20/2012. TECHNIQUE: AP upright portable chest radiograph performed. FINDINGS: The trachea is midline. Stable mild prominence of the cardiac silhouette. Stable mild atheromatous calcification at the aortic arch. Stable hilar shadows which are unremarkable. There is no consolidation, pleural effusion or pulmonary vascular congestion. There is no pneumothorax or acute osseous abnormality. 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 IMPRESSION: There is no acute cardiopulmonary process. Workstation ID: [id number] [facility] Radiology Study observation (narrative) [facility] XR Chest PA and Abdomen APOr dered By: Tiarra Colvin on 11-01-2024 [facility] Work Phone: GYNon 06-23-2017 [facility]IES[facility]AL GYNECOLOGIC CYTOLOGY REPORTNAME: ANILA PULLIAM Date 06/30/2017 Reported:Medical Record [id number]:Accession Number: [id number].Specimen Source: CERVICAL PAP SMEAR Relevant Clinical History: Smears . . . . . . . . . .: 1LMP . . . . . . . . . . . . . . . . . . . . . : Not Provided HPV Reflex? . . . . . . . . . . .Menopause . . . . . . . . . . . . . : n/a. . . : YDate of Last Pap Test .. . . . . .. : ??/??/2012Result of Last Pap Test . . . . . . : negComment: Low risk screenSPECIMEN ADEQUACY:Satisfactory for interpretationEndocervical component cannot be determined due to atrophyGENERAL CATEGORIZATION:NEGATIVE FOR INTRAEPITHELIAL LESION OR MALIGNANCYINTERPRETATION/RESU LT:Many WBC'sAtrophic pattern HANScreened by / Reviewed by (Electronic Signature) Department of Pathology Page 1 of 1 Normal [facility] Vital Signs Date Time Vital Sign Value Performing Clinician Faci lity 11-23-2024 09:25-0500 Diastolic blood pressure 66 mm[Hg] Everardo Blood CNP Work Phone: [facility] 11-23-2024 09:25-0500 Heart rate 61 /min Everardo Blood CNP Work Phone: [facility] 11-23-2024 09:25-0500 Respiratory rate 16 /min Everardo Blood EQUALIZING SAW OPERATOR Work Phone: [facility] 11-23-2024 09:25-0500 SaO2% (BldA) [Mass fraction] 93 % Everardo Blood CNP Work Phone: [facility] 11-23-2024 09:25-0500 Systolic blood pressure 108 mm[Hg] Everardo Blood CNP Work Phone: [facility] 11-02-2024 11:30-0500 Body temperature 98.01 [degF] Remi Obrien MD Work Phone: [facility] 11-02-2024 11:30-0500 Diastolic blood pressure 85 mm[Hg] Remi Obrien MD Work Phone: [facility] Comment on above: primary RN aware 11-02-2024 11:30-0500 Heart rate 73 /min Remi Obrien MD Work Phone: [facility] 11-02-2024 11:30-0500 Respiratory rate 16 /min Remi Obrien MD Work Phone: [facility] 11-02-2024 11:30-0500 SaO2% (BldA) [Mass fraction] 95 % Remi Obrien MD Work Phone: [facility] 11-02-2024 11:30-0500 Systolic blood pressure 182 mm[Hg] Remi Obrien MD Work Phone: [facility] Comment on above: primary RN aware 11-01-2024 18:10-0500 Body height 170.2 cm Remi Obrien MD Work Phone: [facility] 11-01-2024 18:10-0500 Body mass index (BMI) [Ratio] 32.15 kg/m2 Remi Obrien MD Work Phone: [facility] 11-01-2024 18:10-0500 Body weight 93.1 kg Remi Obrien MD Work Phone: [facility] Encounters Encounter Date Encounter Type Care Provider Facility Start: 07-03-2025 Encounter for other preprocedural examination Phi Spialka [facility] Start: 06-28-2025 [facility] Start: 06-18-2025 End: 06-18-2025 ambulatory Phi Virk Facility:[facility] Start: 01-10-2025 End: 01-12-2025 ambulatory PRICILLA JOSE [facility] Start: 01-10-2025 End: 01-12-2025 Subsequent hospital visit by physician Pricilla Jose DO Work Phone: [facility] Comment on above: Cerebrovascular acci dent (CVA), unspecified mechanism (HCC); Chest pain, unspecified type; Mixed hyperlipidemia; Primary hypertension Start: 11-23-2024 End: 11-23-2024 Office outpatient visit 25 minutes Everardo Blood CNP Work Phone: [facility] Comment on above: Acute CVA (cerebrova scular accident) (HCC) (Primary Dx) Start: 11-23-2024 End: 11-23-2024 ambulatory NAHOMYNarendra GREENWOOD [facility] Ambulatory Start: 11-16-2024 ambulatory [facility] Facility:[facility] Start: 11-16-2024 End: 11-16-2024 ambulatory [facility] Facility:[facility] Start: 11-03-2024 End: 11-03-2024 Telephone encounter Bibiana Glynn [facility] Review Start: 11-01-2024 End: 11-02-2024 Evaluation and management of inpatient Deirdre Rebolledo MD Work Phone: [facility] Start: 11-01-2024 ambulatory [facility] Start: 06-23-2017 End: 06-24-2017 Ambulatory Facility:[facility] Procedures Date Procedure Procedure Detail Performing Clinician Start: 11-01-2024 Glucose measurement Generic [facility] Work Phone: Start: 11-01-2024 Electrocardiogram Deirdre Mackey Work Phone: Start: 11-01-2024 Ecg routine ecg w/least 12 lds w/i&r Tej Melissa DO Work Phone: Start: 11-01-2024 Radiologic exam chest single view Deirdre Rebolledo MD Work Phone: Start: 11-01-2024 Comprehensive metabolic panel Deirdre Rebolledo MD Work Phone: Start: 11-01-2024 THOMAS TOP Deirdre Mackey Work Phone: Start: 11-01-2024 LIGHT BLUE TOP Deirdre Mackey Work Phone: Start: 11-01-2024 Lipid panel Mulu pearson MD Work Phone: Start: 11-01-2024 RAINBOW DRAW Deirdre Mackey Work Phone: Start: 11-01-2024 End: 11-01-2024 Ct head/brain w/o contrast material Deirdre Rebolledo MD Work Phone: Plan of Treatment Date Care Activity Detail Author Start: 2026 Respiratory Syncytial Virus (RSV) or age 60 yrs+ (1 - 1-dose 75+ series) Respiratory Syncytial Virus (RSV) or age 60 yrs+ (1 - 1-dose 75+ series) [facility] Start: 2026 Respiratory Syncytial Virus Immunization: Risk, 60-74 Risk, or 75+ (1 - 1-dose 75+ series) Respiratory Syncytial Virus Immunization: Risk, 60-74 Risk, or 75+ (1 - 1-dose 75+ series) [facility] Start: 11-23-2025 Depression screening using PHQ-9 (Patient Health Questionnaire 9) score Depression Screening/Follow-Up (PHQ-2/9) [facility] Start: 07-16-2025 End: 07-16-2025 Patient encounter procedure 07/16/2025 9:30 AM EDT Office Visit [facility] [employer] [address] [place] [id number] Pricilla Jose DO [address] [place] [address] 6 mth follow up [facility] [employer] Comment on above: 6 mth follow up Start: 07-12-2025 ambulatory Ambulatory Facility:[facility] Start: 05-11-2025 Influenza vaccination Flu vaccine (Season Ended) [facility] Start: 11-16-2024 End: 11-16-2024 Patient encounter procedure 11/16/2024 1:45 PM EST Office Visit [facility] [address] [place] [id number] Everardo Blood, SOPHIA [address] [facility] [address] [place] [address] [facility] Start: 11-15-2024 End: 11-01-2025 CT Head WO contrast CT Head Or Brain Without Contrast Imaging Routine Acute CVA (cerebrovascular accident) (HCC) Expected: 11/15/2024, Expires: 11/01/2025 [facility] Comment on above: Expected: 11/15/2024, Expires: Start: 11-05-2024 Lipid panel Lipids [facility] Start: 06-11-2024 COVID-19 Vaccine ( season) COVID-19 Vaccine ( season) [facility] Start: 06-11-2024 Influenza vaccination Influenza Vaccine (#1) [facility] Start: 2016 Fall risk assessment Falls Risk Assessment [facility] Start: 2006 Screening for osteoporosis DEXA (modify frequency per FRAX score) [facility] Start: 2001 Administration of herpes zoster vaccine Zoster Vaccines (1 of 2) [facility] Start: 2001 Pneumococcal 50+ years Vaccine (1 of 1 - PCV) Pneumococcal 50+ years Vaccine (1 of 1 - PCV) [facility] Start: 2001 Pneumococcal Vaccine: Age 50+ (1 of 1 - PCV) Pneumococcal Vaccine: Age 50+ (1 of 1 - PCV) [facility] Start: 2001 Screening for malignant neoplasm of colon Flexible sigmoidoscopy [facility] Start: 2001 Shingles vaccine (1 of 2) Shingles vaccine (1 of 2) [facility] Start: 1996 Screening for malignant neoplasm of colon [facility] Start: 1991 Screening for malignant neoplasm of breast [facility] Start: 1970 DTaP/Tdap/Td vaccine (1 - Tdap) DTaP/Tdap/Td vaccine (1 - Tdap) [facility] Start: 1969 Hepatitis C screening [facility] Start: 1963 Depression Screen Depression Screen [facility] Start: 1963 Depression screening using PHQ-9 (Patient Health Questionnaire 9) score Depression Screening/Follow-Up (PHQ-2/9) [facility] Start: 1954 History and physical examination, annual for health maintenance Wellness Visit [facility] Start: 1951 Screening for malignant neoplasm of colon [facility] Start: 1951 Screening for osteoporosis Dexa Scan [facility] Start: 1951 Tetanus vaccination Tetanus: Every 10yrs [facility] End: 12-30-2025 Echocardiography Echocardiogram complete Echocardiography Routine Acute CVA (cerebrovascular accident) (HCC) 1 Occurrences starting 11/01/2024 until 12/30/2025 [facility] Work Phone: Comment on above: 1 Occurrences starting 11/01/2024 until 12/30/2025 End: 01-10-2025 Extended cardiac holter monitor (3 days-14 day) [facility] Comment on above: 1 Occurrences starting 01/10/2025 until 01/10/2025 Payers Date Payer Category Payer Self-pay 2024 Unknown [id number] 2020 Unknown [id number] 1950 Unknown [id number] [id number] Unknown [id number] [id number] [id number] Unknown [id number] [id number] [id number] Unknown [id number] [id number] [id number] Unknown [id number] [id number] [id number] Unknown [id number] [id number] [id number] Social History Date Type Detail Facility Start: 11-01-2024 End: 01-10-2025 Tobacco smoking status NHIS Never smoked tobacco [facility] Start: 11-01-2024 End: 01-10-2025 Tobacco use and exposure Smokeless tobacco non-user [facility] Start: 11-01-2024 End: 11-23-2024 Alcoholic beverage intake Ex-drinker (finding) [facility] Start: 11-01-2024 End: 01-10-2025 History of Social function [facility] Start: 11-01-2024 End: 01-10-2025 [facility] Utilities [facility] Has the [place], [employer], or water RMI threatened to shut off services in your home in past 12Mo No [facility] (I/We) worried wheth er (my/our) food would run out before (I/we) got money to buy more. Never true [facility] In the past 12 month s, has lack of transportation kept you from medical appointments or from getting medications? No [facility] Start: 1950 Sex assigned at Not on file [facility] Start: 01-10-2025 Alcoholic beverage intake Lifetime non-drinker (finding) [facility] [employer] Start: 07-10-2013 Sex Female (finding) [facility] [employer] NEGATED: Highlighted rowStart: NINF History of tobacco use Passive smoker [facility] Clinical Notes 11-01-2024 to 01-10-2025 Marita Hansen RCP - 01/10/2025 10:00 AM EDTAssessment & Plan Note - Everardo Blood CNP - 12/06/2024 2:13 PM ESTPatient InstructionsAttaHelen Sims - 11/01/2024 6:56 AM EST Note Date & Type Note Facility 01-10-2025 History of Present illness Narrative The patient was educated on the use of a epatch monitor. The patient's comprehension was high. The patient was able to verbalize recall. The patient was instructed on how and when to return the monitor. documented in this encounter [facility] [employer] 12-06-2024 Evaluation + Plan note Associated Problem(s): Acute CVA (cerebrovascular accident) (HCC) Finished with DAPT. Continue aspirin 81 mg daily and atorvastatin 40 mg daily for stroke prevention. Offered referrals for outpatient OT and ST. Patient declined at this time but will call if she changes her mind. Follow-up CT and Echo to be scheduled. Lipid panel 11/01/2024: Cholesterol 204, Triglycerides 96, HDL 75, and LDL 110. Hemoglobin A1c 11/01/2024: 5.6% Stroke signs and symptoms discussed along with lifestyle changes with stroke education placed in AVS for review. Patient discussed follow-up up with her PCP vs coming back for 6 month follow-up. Will leave for patient to decide since she is stable and continuing to make improvements. Her PCP could also order her therapies if she would decide in the future. All questions and concerns were answered prior to completion of OV today. Follow-up in 6 months - unless patient declines. [facility] 12-06-2024 Miscellaneous Notes Associated Problem(s): Acute CVA (cerebrovascular accident) (HCC) Finished with DAPT. Continue aspirin 81 mg daily and atorvastatin 40 mg daily for stroke prevention. Offered referrals for outpatient OT and ST. Patient declined at this time but will call if she changes her mind. Follow-up CT and Echo to be scheduled. Lipid panel 11/01/2024: Cholesterol 204, Triglycerides 96, HDL 75, and LDL 110. Hemoglobin A1c 11/01/2024: 5.6% Stroke signs and symptoms discussed along with lifestyle changes with stroke education placed in AVS for review. Patient discussed follow-up up with her PCP vs coming back for 6 month follow-up. Will leave for patient to decide since she is stable and continuing to make improvements. Her PCP could also order her therapies if she would decide in the future. All questions and concerns were answered prior to completion of OV today. Follow-up in 6 months - unless patient declines. documented in this encounter [facility] 11-23-2024 Instructions Everardo Blood CNP - 11/23/2024 9:36 AM EST Call if you change your mind about starting some occupational therapy for your arm and speech therapy. Continue aspirin 81 mg daily and atorvastatin 40 mg daily for stroke prevention. Continue to monitor blood pressure at home. Your reading today looks good. Call with any further questions. Follow-up in 6 months. Stroke Signs and Symptoms - FAST: Facial drooping, arm weakness, speech difficulty, and time to call 911. - Weakness or numbness in the face, arms, or legs; especially when it is on one side of the body. - Confusion, trouble speaking or understanding. - Changes in vision such as blurry vision or partial or complete loss of vision in one or both eyes. - Trouble walking, dizziness, loss of balance, or coordination. - Severe headache with no reason or explanation. Stroke Lifestyle Changes - Stop smoking, if you smoke. - Get regular exercise. At least 30 minutes a day on most days of the week is recommended. - Lose weight, if you are overweight. - Mediterranean diet is recommended. This diet is rich in fruits, vegetables, and low-fat dairy products. Low amounts of meat, sweets, and refined grains (such as white bread or white rice) should be consumed. - Monitor sodium intake. Do no add salt to foods. Read food labels, canned foods and processed foods are high in sodium and should be avoided. - Limit alcohol consumption The following attachments cannot be sent through Care Everywhere.Stroke (Tajik)Stroke: Risk Factors: General Info (Tajik)Stroke: Symptoms: General Info (Tajik)documented in this encounter [facility] 11-23-2024 Note Patient ID: Anila Pulliam is a 74 y.o. female. Assessment/Plan: Problem List Diagnosed Acute CVA (cerebrovascular accident) (HCC) - Primary Finished with DAPT. Continue aspirin 81 mg daily and atorvastatin 40 mg daily for stroke prevention. Offered referrals for outpatient OT and ST. Patient declined at this time but will call if she changes her mind. Follow-up CT and Echo to be scheduled. Lipid panel 11/01/2024: Cholesterol 204, Triglycerides 96, HDL 75, and LDL 110. Hemoglobin A1c 11/01/2024: 5.6% Stroke signs and symptoms discussed along with lifestyle changes with stroke education placed in AVS for review. Patient discussed follow-up up with her PCP vs coming back for 6 month follow-up. Will leave for patient to decide since she is stable and continuing to make improvements. Her PCP could also order her therapies if she would decide in the future. All questions and concerns were answered prior to completion of OV today. Follow-up in 6 months - unless patient declines. Follow-up in 6 months, unless patient declines. Time statement: A total of 35 minutes were spent on this encounter, which includes the time reviewing the patient's diagnostic tests, seeing the patient, speaking with nursing staff, and documenting in the record. Everardo Blood, BABITA, EQUALIZING SAW OPERATOR [facility] Neurology Subjective HPI Anila Pulliam is a 74 year old female here for post hospital follow-up. She reports some stiffness feeling on the right side of her face. She also feels like her speech is still a little slurred but this is getting better. No swallowing concerns reported. No balance concerns. She feels like her memory is slow. She presented to [facility] on 11/01/2024 with right arm weakness, right facial droop, and slurred speech. Blood pressure upon arrival to ED was 207/84. CT revealed a low density focus in the left basal ganglia. CT angiogram was negative for large vessel occlusion. Due to the time frame, she was not a candidate for IV tPA. He was loaded with aspirin and Plavix [address] mg daily[address] of [address]. Caro's inpatient note below: While CT head did reveal this low-density focus that could be a potential seizure focus, considering that she presented within a few hours of onset of symptoms, it would be unlikely for the lacunar stroke to show this extent of of encephalomalacia. Unclear if there were any clear cortical signs, although initial NIHSS did assign 1 point to language. No gaze deviation, hemianopia or expressive difficulty was described by patient. While in ideal circumstances, an MRI can clarify etiology of symptoms, overall symptoms appear to be linked to a lacunar stroke. She is currently monitored on telemetry, and unless atrial fibrillation is seen, MRI or echo is unlikely to microsoft exchange architect. Hence will recommend continuing DAPT for 21 days followed by aspirin monotherapy. The patient can follow-up outpatient with results of an outpatient echocardiogram and repeat CT in 3 weeks. Echo and follow-up CT still need scheduled. She was discharged home with DAPT for 3 weeks then to follow-up with monotherapy with aspirin. She qualified for outpatient speech therapy and occupational therapy. She declined referrals for both today feeling like she is making improvements and does not need this. Blood pressure appears well controlled. No concerns with anxiety or depression since stroke. Family member comes with her to appointment today. No further questions or concerns reported at this time. Review of patients current medication list along with allergies, past medical history, surgical history, family history, and social history was reviewed and updated as appropriate. Review of Systems Constitutional: Negative for activity change, appetite change, chills, fatigue, fever and unexpected weight change. HENT: Negative for trouble swallowing. Eyes: Negative for visual disturbance. Respiratory: Negative for cough, shortness of breath and wheezing. Cardiovascular: Negative for chest pain and palpitations. Gastrointestinal: Negative for abdominal pain, nausea and vomiting. Endocrine: Negative for polydipsia, polyphagia and polyuria. Genitourinary: Negative for difficulty urinating. Musculoskeletal: Negative for arthralgias, back pain and neck pain. Skin: Negative for rash. Neurological: Positive for speech difficulty (improving) and weakness (right arm - improving). Negative for dizziness, tremors, seizures, syncope, light-headedness and headaches. Psychiatric/Behavioral: Negative for confusion, decreased concentration, dysphoric mood and sleep disturbance. The patient is not nervous/anxious. Objective BP 108/66 (BP Location: Left arm, Patient Position: Sitting, BP Cuff Size: Adult) Pulse 61 Resp 16 SpO2 93% Neurological Exam Mental Status Awake, alert and oriented to person, place and time. Oriented to person, place, (more content not included)... [facility] 11-23-2024 History of Present illness Narrative Patient ID: Anila Pulliam is a 74 y.o. female. Assessment/Plan: Problem List Diagnosed Acute CVA (cerebrovascular accident) (HCC) - Primary Finished with DAPT. Continue aspirin 81 mg daily and atorvastatin 40 mg daily for stroke prevention. Offered referrals for outpatient OT and ST. Patient declined at this time but will call if she changes her mind. Follow-up CT and Echo to be scheduled. Lipid panel 11/01/2024: Cholesterol 204, Triglycerides 96, HDL 75, and LDL 110. Hemoglobin A1c 11/01/2024: 5.6% Stroke signs and symptoms discussed along with lifestyle changes with stroke education placed in AVS for review. Patient discussed follow-up up with her PCP vs coming back for 6 month follow-up. Will leave for patient to decide since she is stable and continuing to make improvements. Her PCP could also order her therapies if she would decide in the future. All questions and concerns were answered prior to completion of OV today. Follow-up in 6 months - unless patient declines. Follow-up in 6 months, unless patient declines. Time statement: A total of 35 minutes were spent on this encounter, which includes the time reviewing the patient's diagnostic tests, seeing the patient, speaking with nursing staff, and documenting in the record. Everardo Blood, MSN, EQUALIZING SAW OPERATOR [facility] Neurology Subjective HPI Anila Pulliam is a 74 year old female here for post hospital follow-up. She reports some stiffness feeling on the right side of her face. She also feels like her speech is still a little slurred but this is getting better. No swallowing concerns reported. No balance concerns. She feels like her memory is slow. She presented to [facility] on 11/01/2024 with right arm weakness, right facial droop, and slurred speech. Blood pressure upon arrival to ED was 207/84. CT revealed a low density focus in the left basal ganglia. CT angiogram was negative for large vessel occlusion. Due to the time frame, she was not a candidate for IV tPA. He was loaded with aspirin and Plavix [address] Caro's inpatient note below: While CT head did reveal this low-density focus that could be a potential seizure focus, considering that she presented within a few hours of onset of symptoms, it would be unlikely for the lacunar stroke to show this extent of of encephalomalacia. Unclear if there were any clear cortical signs, although initial NIHSS did assign 1 point to language. No gaze deviation, hemianopia or expressive difficulty was described by patient. While in ideal circumstances, an MRI can clarify etiology of symptoms, overall symptoms appear to be linked to a lacunar stroke. She is currently monitored on telemetry, and unless atrial fibrillation is seen, MRI or echo is unlikely to microsoft exchange architect. Hence will recommend continuing DAPT for 21 days followed by aspirin monotherapy. The patient can follow-up outpatient with results of an outpatient echocardiogram and repeat CT in 3 weeks. Echo and follow-up CT still need scheduled. She was discharged home with DAPT for 3 weeks then to follow-up with monotherapy with aspirin. She qualified for outpatient speech therapy and occupational therapy. She declined referrals for both today feeling like she is making improvements and does not need this. Blood pressure appears well controlled. No concerns with anxiety or depression since stroke. Family member comes with her to appointment today. No further questions or concerns reported at this time. Review of patients current medication list along with allergies, past medical history, surgical history, family history, and social history was reviewed and updated as appropriate. Review of Systems Constitutional: Negative for activity change, appetite change, chills, fatigue, fever and unexpected weight change. HENT: Negative for trouble swallowing. Eyes: Negative for visual disturbance. Respiratory: Negative for cough, shortness of breath and wheezing. Cardiovascular: Negative for chest pain and palpitations. Gastrointestinal: Negative for abdominal pain, nausea and vomiting. Endocrine: Negative for polydipsia, polyphagia and polyuria. Genitourinary: Negative for difficulty urinating. Musculoskeletal: Negative for arthralgias, back pain and neck pain. Skin: Negative for rash. Neurological: Positive for speech difficulty (improving) and weakness (right arm - improving). Negative for dizziness, tremors, seizures, syncope, light-headedness and headaches. Psychiatric/Behavioral: Negative for confusion, decreased concentration, dysphoric mood and sleep disturbance. The patient is not nervous/anxious. Objective BP 108/66 (BP Location: Left arm, Patient Position: Sitting, BP Cuff Size: Adult) Pulse 61 Resp 16 SpO2 93% Neurological Exam Mental Status Awake, alert and oriented to person, place and time. Oriented to person, place, time and situation. Oriented to person, place, and time. Recent and remote memory are intact. Mild dysarthria present. Language is fluent with no aphasia. Attention and concentration are normal. Cranial Nerves CN II: Visual acuity is normal. Visual rodriguez full to confrontation. CN III, IV, : Extraocular movements intact bilaterally. Normal lids and orbits bilaterally. Pupils equal round and reactive to light bilaterally. CN V: Facial sensation is normal. CN VII: Full and symmetric facial movement. CN VIII: Hearing is normal. CN IX, X: Palate elevates symmetrically. Normal gag reflex. CN XI: Shoulder shrug strength is normal. CN XII: Tongue midline without atrophy or fasciculations. Motor Normal muscle bulk throughout. Normal muscle tone. Strength is 5/5 in all four extremities except as noted. Slight weakness noted to RUE.. Sensory Sensation is intact to light touch, pinprick, vibration and proprioception in all four extremities. Reflexes Deep tendon reflexes are 2+ and symmetric in all four extremities. Right Left Biceps 2+ 2+ Triceps 2+ 2+ Patellar 2+ 2+ Coordination [id number], rapid alternating movements and [id number] normal bilaterally without dysmetria. Gait Normal casual, toe, heel and tandem gait. Normal gait. Steady gait. Ambulates without assistive device.. Physical Exam Vitals and nursing note reviewed. Constitutional: Appearance: She is well-developed. Comments: Patient is very pleasant and cooperative for exam. She is well groomed and dressed appropriate for season.She HENT: Head: Normocephalic and atraumatic. Eyes: General: Lids are normal. Extraocular Movements: Extraocular movements intact. Pupils: Pupils are equal, round, and reactive to light. Cardiovascular: Rate and Rhythm: Normal rate and regular rhythm. Heart sounds: No murmur heard. Pulmonary: Effort: Pulmonary effort is normal. No respiratory distress. Breath sounds: Normal breath sounds. No wheezing. Abdominal: General: Bowel sounds are normal. There is no distension. Palpations: Abdomen is soft. Musculoskeletal: General: Normal range of motion. Cervical back: Normal range of motion and neck supple. Skin: General: Skin is warm and dry. Findings: No rash. Neurological: Mental Status: She is oriented to person, place, and time. Cranial Nerves: Dysarthria present. Coordination: Coordination is intact. Gait: Gait is intact. Deep Tendon Reflexes: Reflexes are normal and symmetric. Reflex Scores: Tricep reflexes are 2+ on the right side and 2+ on the left side. Bicep reflexes are 2+ on the right side and 2+ on the left side. Patellar reflexes are 2+ on the right side and 2+ on the left side. Psychiatric: Behavior: Behavior normal. Thought Content: Thought content normal. Judgment: Judgment normal. documented in this encounter [facility] 11-02-2024 Note Neurology Inpatient Consult [facility] 11/02/2024 Patient: Anila Pulliam Date of : 1950 (74 y.o.) Referring Provider: Refer to consult order in electronic medical record PCP: Nahomy Frank PA-C ASSESSMENT: 74 y.o. female presented to [facility] on 11/01/2024 with history of hypertension who presents for evaluation of right-upper extremity weakness, right facial droop, and slurred speech that she woke up with at 4 AM on 11/01/2024. On arrival, blood pressures were 207/84. NIHSS stroke scale initially Initial NIH stroke scale of 5, subsequently improved to 4 at the time of my evaluation (2 for right facial droop, 1 for right upper extremity, 1 for slight slurred speech). There is also more severe left hand head inspector and center marker strength weakness, that is typically not calculated on a NIH stroke scale. Noncontrast CT revealed a low-density focus in left basal ganglia, however no other acute changes. CT angiogram did not reveal any large vessel occlusions. Patient was not deemed to be a candidate for IV tPA and was loaded with aspirin and Plavix in the ER. Neurology was consulted for further recommendations. Of note, the patient is a [employer], currently without insurance and planning to pay [id number]. While CT head did reveal this low-density focus that could be a potential seizure focus, considering that she presented within a few hours of onset of symptoms, it would be unlikely for the lacunar stroke to show this extent of of encephalomalacia. Unclear if there were any clear cortical signs, although initial NIHSS did assign 1 point to language. No gaze deviation, hemianopia or expressive difficulty was described by patient. While in ideal circumstances, an MRI can clarify etiology of symptoms, overall symptoms appear to be linked to a lacunar stroke. She is currently monitored on telemetry, and unless atrial fibrillation is seen, MRI or echo is unlikely to microsoft exchange architect. Hence will recommend continuing DAPT for 21 days followed by aspirin monotherapy. The patient can follow-up outpatient with results of an outpatient echocardiogram and repeat CT in 3 weeks. Interval history 11/02/2024: Patient is stable PLAN: Likely left hemispheric lacunar stroke (Ischemic Infarct) - Location: Unclear - Etiology: Lacunar/small vessel Testing: No further neurologic testing inpatient, apart from lipid panel. Repeat CT head and echocardiogram as an outpatient Labs: HbA1c 5.6, lipid panel with total cholesterol of 204, HDL of 75, LDL of 110 Cardiac Rhythm: NO Afib noted to date Continue the following medications for stroke prevention: Anti-thrombotic: Plavix and ASA 81 mg for 21 days, then d/c Plavix .continue statin therapy Blood pressure goal - Permissive hypertension (blood pressure less than 220/120 mmHg for 48 hours and then gradually normalize over 5 to 7 days), gentle IV hydration and head of bed flat. LDL goal < 70, Hemoglobin A1c goal 6.5 or lower, Educated on the importance of adequate sleep, exercise (30 minutes brisk exercise 5 days per week), hydration (at least 64 oz of water daily), and mediterranean style diet were discussed. Extensive stroke prevention teaching provided today. All questions and concerns were addressed. We will sign off at this time. Please follow-up as an outpatient. Mulu Caro MD Staff Neurologist DIAGNOSTIC TESTING SUMMARY: Resulted Testing: (MRI/CT/XR, EEG, EMG, CSF, Cardiac, Labs) CT head\11/01/2023 1. Low-density focus in the left basal ganglia may correlate with age-indeterminate lacunar infarct or prominent perivascular space. MRI could be considered if clinical symptoms warrant. 2. No acute hemorrhage or midline shift. CT angiogram of the head and neck 11/01/2023 1. No proximal intracranial arterial occlusion or high-grade stenosis. No intracranial aneurysm or vascular malformation. 2. No significant carotid or vertebral artery stenosis in the neck. No acute dissection. SUBJECTIVE: Chief Complaint/Reason for Consult: Acute ischemic stroke Informant(s): Patient, , Care Team/Chart History of Present Illness: Anila Pulliam is a 74 y.o. female with history of hypertension who presents for evaluation of right-upper extremity weakness, right facial droop, and slurred speech that she woke up with at 4 AM on 11/01/2024. On arrival, blood pressures were 207/84. NIHSS stroke scale initially Initial NIH stroke scale of 5, subsequently improved to 4 at the time of my evaluation (2 for right facial droop, 1 for right upper extremity, 1 for slight slurred speech). There is also more severe left hand head inspector and center marker strength weakness, that is typically not calculated on a NIH stroke scale. Noncontrast CT revealed a low-density focus in left basal ganglia, however no other acute changes. CT angiogram did not reveal any large vessel occlusions. Patient was not deemed to be a candidate for IV tPA an (more content not included)... [facility] 11-02-2024 History of Present illness Narrative Neurology Inpatient Consult [facility] 11/02/2024 Patient: Anila Pulliam Date of : 1950 (74 y.o.) Referring Provider: Refer to consult order in electronic medical record PCP: Nahomy Frank PA-C ASSESSMENT: 74 y.o. female presented to [facility] on 11/01/2024 with history of hypertension who presents for evaluation of right-upper extremity weakness, right facial droop, and slurred speech that she woke up with at 4 AM on 11/01/2024. On arrival, blood pressures were 207/84. NIHSS stroke scale initially Initial NIH stroke scale of 5, subsequently improved to 4 at the time of my evaluation (2 for right facial droop, 1 for right upper extremity, 1 for slight slurred speech). There is also more severe left hand head inspector and center marker strength weakness, that is typically not calculated on a NIH stroke scale. Noncontrast CT revealed a low-density focus in left basal ganglia, however no other acute changes. CT angiogram did not reveal any large vessel occlusions. Patient was not deemed to be a candidate for IV tPA and was loaded with aspirin and Plavix in the ER. Neurology was consulted for further recommendations. Of note, the patient is a [employer], currently without insurance and planning to pay [id number]. While CT head did reveal this low-density focus that could be a potential seizure focus, considering that she presented within a few hours of onset of symptoms, it would be unlikely for the lacunar stroke to show this extent of of encephalomalacia. Unclear if there were any clear cortical signs, although initial NIHSS did assign 1 point to language. No gaze deviation, hemianopia or expressive difficulty was described by patient. While in ideal circumstances, an MRI can clarify etiology of symptoms, overall symptoms appear to be linked to a lacunar stroke. She is currently monitored on telemetry, and unless atrial fibrillation is seen, MRI or echo is unlikely to microsoft exchange architect. Hence will recommend continuing DAPT for 21 days followed by aspirin monotherapy. The patient can follow-up outpatient with results of an outpatient echocardiogram and repeat CT in 3 weeks. Interval history 11/02/2024: Patient is stable PLAN: Likely left hemispheric lacunar stroke (Ischemic Infarct) - Location: Unclear - Etiology: Lacunar/small vessel Testing: No further neurologic testing inpatient, apart from lipid panel. Repeat CT head and echocardiogram as an outpatient Labs: HbA1c 5.6, lipid panel with total cholesterol of 204, HDL of 75, LDL of 110 Cardiac Rhythm: NO Afib noted to date Continue the following medications for stroke prevention: Anti-thrombotic: Plavix and ASA 81 mg for 21 days, then d/c Plavix .continue statin therapy Blood pressure goal - Permissive hypertension (blood pressure less than 220/120 mmHg for 48 hours and then gradually normalize over 5 to 7 days), gentle IV hydration and head of bed flat. LDL goal < 70, Hemoglobin A1c goal 6.5 or lower, Educated on the importance of adequate sleep, exercise (30 minutes brisk exercise 5 days per week), hydration (at least 64 oz of water daily), and mediterranean style diet were discussed. Extensive stroke prevention teaching provided today. All questions and concerns were addressed. We will sign off at this time. Please follow-up as an outpatient. Mulu Caro MD Staff Neurologist DIAGNOSTIC TESTING SUMMARY: Resulted Testing: (MRI/CT/XR, EEG, EMG, CSF, Cardiac, Labs) CT head\11/01/2023 1. Low-density focus in the left basal ganglia may correlate with age-indeterminate lacunar infarct or prominent perivascular space. MRI could be considered if clinical symptoms warrant. 2. No acute hemorrhage or midline shift. CT angiogram of the head and neck 11/01/2023 1. No proximal intracranial arterial occlusion or high-grade stenosis. No intracranial aneurysm or vascular malformation. 2. No significant carotid or vertebral artery stenosis in the neck. No acute dissection. SUBJECTIVE: Chief Complaint/Reason for Consult: Acute ischemic stroke Informant(s): Patient, , Care Team/Chart History of Present Illness: Anila Pulliam is a 74 y.o. female with history of hypertension who presents for evaluation of right-upper extremity weakness, right facial droop, and slurred speech that she woke up with at 4 AM on 11/01/2024. On arrival, blood pressures were 207/84. NIHSS stroke scale initially Initial NIH stroke scale of 5, subsequently improved to 4 at the time of my evaluation (2 for right facial droop, 1 for right upper extremity, 1 for slight slurred speech). There is also more severe left hand head inspector and center marker strength weakness, that is typically not calculated on a NIH stroke scale. Noncontrast CT revealed a low-density focus in left basal ganglia, however no other acute changes. CT angiogram did not reveal any large vessel occlusions. Patient was not deemed to be a candidate for IV tPA and was loaded with aspirin and Plavix in the ER. Neurology was consulted for further recommendations. No history of previous strokes. Apart from hypertension denies any other medical issues. Review of Systems: Neurological ROS: negative for - behavioral changes, bowel and bladder control changes, confusion, gait disturbance, headaches, impaired coordination/balance, memory loss, seizures, tremors, or visual changes History: Past Medical History: Diagnosis Date Hypertension Past Surgical History: Procedure Laterality Date CHOLECYSTECTOMY WISDOM TOOTH EXTRACTION Bilateral Social History Socioeconomic History Marital status: Tobacco Use Smoking status: Never Passive exposure: Never Smokeless tobacco: Never Substance and Sexual Activity Alcohol use: Not Currently Drug use: Not Currently Social Drivers of Health Food Insecurity: No Food Insecurity (11/01/2024) Hunger Vital Sign Worried About Running Out of Food in the Last Year: Never true Ran Out of Food in the Last Year: Never true Transportation Needs: No Transportation Needs (11/01/2024) PRAPARE - Transportation Lack of Transportation (Medical): No Lack of Transportation (Non-Medical): No Housing Stability: Low Risk (11/01/2024) Housing Stability Vital Sign Unable to Pay for Housing in the Last Year: No Number of Times Moved in the Last Year: 0 Homeless in the Last Year: No Family History Problem Relation Age of Onset Hypertension Mother Diabetes Father Allergies: Patient has no known allergies. HOME Medications: Prior to Admission medications Medication Sig Start Date End Date Taking? Authorizing Provider latanoprost (XALATAN) 0.005 % ophthalmic solution Administer 1 (one) drop to both eyes at bedtime . Yes Provider, MD Joelle losartan (COZAAR) 50 MG tablet Take 1 (one) tablet (50 mg total) by mouth daily . 10/31/24 Yes Provider, MD Joelle multivitamin per tablet Take 1 (one) tablet by mouth daily . Yes ProviderJoelle MD verapamil sr (CALAN-SR) 120 MG er tablet Take 1 (one) tablet (120 mg total) by mouth daily . 10/31/24 Yes ProviderJoelle MD HOSPITAL Infusions: HOSPITAL Scheduled Medications: aspirin 325 mg Oral Daily Or aspirin 300 mg Rectal Daily atorvastatin 40 mg Oral Nightly clopidogreL 300 mg Oral Once [START ON 11/03/2024] clopidogreL 75 mg Oral Daily enoxaparin (LOVENOX) injection 40 mg Subcutaneous Nightly latanoprost 1 drop Both Eyes at bedtime multivitamin 1 tablet Oral Daily sodium chloride (PF) 5 mL Intravenous Q8H [facility] PRN Medications: acetaminophen, aluminum-magnesium hydroxide-simethicone, bisacodyL, labetalol OR hydrALAZINE, magnesium hydroxide, ondansetron, ondansetron, perflutren lipid microspheres, Saline lock IV AND sodium chloride (PF) AND sodium chloride (PF) AND sodium chloride 0.9 %, traZODone OBJECTIVE: Physical Examination: BP (!) 182/85 (BP Location: Left arm, Patient Position: Lying) Comment: primary RN aware Pulse 73 Temp 98 F (36.7 C) (Oral) Resp 16 Ht 5' 7 Wt 93.1 kg (205 lb 4 oz) SpO2 95% BMI 32.15 kg/m 11/02/24 NIH Stroke Scale Level of Consciousness (1a.) 0 LOC Questions (1b.) 0 LOC Commands (1c.) 0 Best Gaze (2.) 0 Visual (3.) 0 Facial Palsy (4.) 1 Motor Arm, Left (5a.) 0 Motor Arm, Right (5b.) 1 Motor Leg, Left (6a.) 0 Motor Leg, Right (6b.) 0 Limb Ataxia (7.) 0 Sensory (8.) 0 Best Language (9.) 0 Dysarthria (10.) 1 Extinction and Inattention (11.) (Formerly Neglect) 0 Total 1 Patient is awake and alert. Normal development and fairly groomed. Not in distress or pain. Vital signs were reviewed. Neck is supple. No meningeal sign. No skin rash. Patient is oriented to month, season, year, place, and person. Language is intact. Able to name and repeat. Speech is fluent, although very slightly slurred due to facial droop, and is spontaneous. General fund of knowledge is intact. Pupils are 4 mm equally reactive to light. No ptosis, nystagmus, or visual field cuts. Extraocular muscles are intact. Face is asymmetric, with UMN type right facial droop. And facial sensation is intact. Hearing is grossly intact. Palate moves symmetrical upward. Positive shoulder shrug. Tongue is midline. Motor: Normal bulk and tone. No pronator drift. SA EE EF WE WF DI HF KE KF DF PF Right 4+ 5- 5 5- 5 4 5 5 5 5 5 Left 5 5 5 5 5 5 5 5 5 5 5 Reflexes: Right Left Comments Biceps 2 2 Triceps 2 2 Brachioradialis 2 2 Patellar 2 2 Achilles 2 2 Coordination: [id number] intact bilaterally. Slight difficulty with the right upper extremity due to hand weakness Sensation: Comments Light touch Intact throughout Gait: deferred Mulu Caro MD 11/02/2024 Timed code 36 minutes Includes preparation to see the patient (reviewing previous history, exam, test, procedure, and medications); Obtaining history from the patient/family/caregivers; performing evaluation and examination; ordering medications, tests, or procedures; referring and communicating with other healthcare professionals; counseling and education of the patient/family/caregiver; independently interpreting results (Tests, labs, imaging) and communicating results to the patient/family/caregiver; coordination of care; documenting clinical information in the electronic and other health records. The caregiver has been assessed for the following related to the stroke survivor after discharge: Understanding what assistance with personal care/activities of daily living is needed Caregiver verbalizes understanding Willingness to provide assistance with personal care/activities of daily living Caregiver verbalizes willingness Health problems that may impact the caregiver s ability to provide care Caregiver has no health problems that would impact ability to provide care Family/friends who are able to assist the caregiver with providing care Caregiver verbalizes friends/family who are able to assist at home Roles and/or responsibilities that would impact the caregiver s ability to provide care Caregiver verbalizes no roles/responsibilities that would impact providing care Concerns about their ability to continue providing care over the next year Caregiver verbalizes no concerns for providing care over the next year Financial concerns related providing caring Caregiver verbalizes minimal financial concerns Speech Pathology Daily Note Dysphagia Only Treatment Recommendations: NDD diet recommendation: Regular solids, Thin liquids Further Eval Rxs: Cognitive-communication evaluation (see separate note for cognitive-communication evaluation) Compensatory Strategies: Eat/feed slowly, Check for pocketing of food on the right, Extra swallow every 2-3 bites Postures: Sit as upright as possible for all oral intake, Up 30 min after meal Food Presentation: Small bites Liquid Presentation: Small sips Medication Presentation: Whole with thins Amount of Supervision: Set up assistance with tray Treatment Techniques: Train swallowing strategies, Oral motor exercises Further Recommendations: Oral care TID, Assess for diet tolerance Skilled therapy needs: Skilled Therapy Needs: Are ST Skilled Therapy Services Needed After Discharge: Yes Functional Limitations: communication deficits Intensity of ST Skilled Therapy: 2-3 days per week (vs none, pending acute care progress) Anticipated Duration of ST Skilled Therapy: Duration 7 - 10 days Speech Plan: Further acute Speech Therapy services indicated: Yes Patient Goal for Treatment: To go home, Improve communication Rehab Potential: Good, for established goals Factors for returning to Prior Level of Function: Factors for Returning to Prior Level of Function Body Structure and Function: Neurologic impairment Explain Impairments: s/p CVA Activities and Participation: ADL/IADL limitation, Communication limitation Explain Limitations: ride sided weakness s/p CVA, mild dysarthria Environmental Factors: Home situation, Family/caregiver support Explain Environmental Factors: presents from home, family at bedside Personal Factors: Awareness of own capacity and performance Explain Personal Factors: voicing insight PLASTERING SUPERVISOR Caregiver Readiness: PLASTERING SUPERVISOR Caregiver Readiness ST Rationale: Working toward discharge home, Stroke Caregiver Readiness ST Training Progress: Initiated & ongoing - follow-up required ST Identified Caregiver: Spouse, Other (comment) (Patient) Caregiver Present for ST Session: Yes ST Training Provided For: Communication - follow-up required, Safe swallow strategies - follow-up required, Exercise program - follow-up required, Stroke - follow-up required Caregiver response to training: Verbalizes understanding PLASTERING SUPERVISOR Assessments PLASTERING SUPERVISOR Assessments Subjective Impression: Alert, Cooperative, Pleasant Mood Respiratory Status: Room air Dentition: Permanent Self-Feeding Barriers: Functional for self-feeding (With intermittent assist d/t right sided UE weakness) Patient Positioning: Upright in bed (EOB) Baseline Cough: (Not present) Secretion Management: Adequate Volitional Swallow: Present Impressions Severity Group Patient received w/spouse present at bedside. Patient endorsed tolerance of PO without difficulty; accepted trials of thin liquids via large bore straw w/no overt s/sx of penetration/aspiration. Recommend continued diet level of thin liquids/regular solids, medications via thin liquid. PLASTERING SUPERVISOR will continue to follow to assess diet tolerance. Skilled Interventions and Response to Interventions: Swallowing Strategies Swallowing Strategies: Patient education/training, Caregiver/family education/training with patient involvement Swallowing Strategies - Patient Education / Training: return demonstration independently, verbalized comprehension of presented information Swallowing Strategies - Caregiver/family education/training with patient involvement: verbalized comprehension of presented information Risk of Aspiration Risk of Aspiration: Patient education/training, Caregiver/family education/training with patient involvement Risk of Aspiration - Patient education/training: verbalized comprehension of presented information Risk of Aspiration - Caregiver/family education/training with patient involvement: verbalized comprehension of presented information Therapeutic Trials Therapeutic Trials: Thin liquids Therapeutic Trials - Thin Liquids: perceived timely pharyngeal swallow onset, laryngeal elevation appears present, no overt s/sx penetration/aspiration Dysphagia Exercise Education Dysphagia Exercise Education: oral motor exercises Dysphagia Exercise Education - Oral motor exercise: Patient education/training, Caregiver/family education/training with patient involvement, return demonstration independently, verbalized comprehension of presented information Therapeutic Exercises Therapeutic Exercises: Isometric labial exercises, Isometric lingual exercises Isometric lingual exercises: 1-5 reps, min, verbal cues, visual cues, increased independence performing exercises Isometric labial exercises: 1-5 reps, min, verbal cues, visual cues, increased independence performing exercises Past Medical History: Diagnosis Date Hypertension Past Surgical History: Procedure Laterality Date CHOLECYSTECTOMY WISDOM TOOTH EXTRACTION Bilateral For complete objective data, detailed plan of care, and education refer to: Speech Comm/Cog Eval, Speech Bedside Swallow Evaluation, and PLASTERING SUPERVISOR Daily flowsheet, as well as patient Plan of Care and Education documentation. This note stands as the current Discharge Summary upon patient discharge from the hospital or completion of Speech Pathology Plan of Care Spiritual Care Progress Note Completed by: Helen Nichols Person(s) Present During this Visit: Patient Time Spent in Direct Patient Care: 15 Narrative: Trailer Body Assembler responded to stroke alert. Met with spouse who was conducted to the room. Patient was calm and responded to chaplains touch and support while spouse held a conversation about her sickness and his concerns. Trailer Body Assembler offered active listening and prayed with spouse while the patient was again taken for additional medical procedure. Spouse verbalized they are Christians of the Mennonite tradition and that prayer would be helpful. He expressed appreciation for visit, prayer and quick medical intervention. 11/01/24 0600 Visit Background Visit With Patient Visit By Staff Trailer Body Assembler Visit Progression Introduction Visit Requested By (al) Visit Type Crisis Visit Visit Circumstances and Events Trauma 1 Visit Length (minutes) 15 Patient's Response to Pastoral Care Appeared to be well-engaged;Appeared to be not engaged Visit Planning Trailer Body Assembler Follow-up to complete Spiritual or Orthodoxy Assessment Spiritual Assessment Not assessed during visit Orthodoxy Assessment Not assessed during this visit Family assessment provided? Assessed during this visit Family Assessment Relationship to Patient Spouse Affect at Time of Visit Appropriate for the Situation;Quiet Emotions Expressed During Visit Calm;Hopeful Expressed Concerns Regarding Patient Illness Care-Giving;Coping with Illness Sources of Hope and Strength Jenise;Praying for Healing Family / Friend's Support and Participation Active;Strong Grief Assessment Accepting Spiritual Assessment Seeking Healing/Wholeness Interventions - Family / Friend Acted as an Advocate Family / Friend Outcomes Open to Trailer Body Assembler Visit Helen Nichols Dmin., [facility] Staff Trailer Body Assembler [facility] On-call Trailer Body Assembler [phone] documented in this encounter [facility] 11-02-2024 Note HMS DISCHARGE SUMMAR Y -- [facility] Anila Pulliam Admitted: 11/01/2024 Discharge Date: 11/02/24 PCP Handoff Recommended Outpatient Testing Follow up with neurolgoy Results Pending At Discharge none Clinical Summary Please continue with home blood pressure meds, Please continue with asprin 81 and plavix 75 for 21 days to end Feb 13. Starting Nov 24 please take asprin 81 only Please take daily lipitor 40 mg for cholestrol Please follow up with neurology Anila Pulliam is a 74 y.o. female patient of Nahomy Frank PA-C with history of HTN presented to [facility] on 11/01/2024 with rt facial droop and RUE weakness . Acute CVA Rt facial droop RUE weakness CT head with low density lesion in b.g. CTA with no large vessel lesions Lacunar stroke MRI & echo as outptient or further neuro reccs DAPT for 21 days to end nov 24 then asprin Plavix load inpatient Statin Essential HTN home losartan and verapamil Glaucoma Continue home Xalatan Discharge Medications Discharge Medications New Medications Details atorvastatin 40 MG tablet Commonly known as: LIPITOR Take 1 (one) tablet (40 mg total) by mouth nightly . Quantity: 30 tablet Medications To Continue Details latanoprost 0.005 % ophthalmic solution Commonly known as: XALATAN Administer 1 (one) drop to both eyes at bedtime . losartan 50 MG tablet Commonly known as: COZAAR Take 1 (one) tablet (50 mg total) by mouth daily . multivitamin per tablet Take 1 (one) tablet by mouth daily . verapamil sr 120 MG er tablet Commonly known as: CALAN-SR Take 1 (one) tablet (120 mg total) by mouth daily . Physician(s) Follow Up: Everardo Blood, EQUALIZING SAW OPERATOR [address] [place], [place] [id number] Follow up in 3 week(s) Condition at Discharge: Stable Disposition: Home I reviewed discharge recommendations with the patient in person. Patient instructions, including activity, were given to the patient/family at discharge. On day of discharge I saw Anila Pulliam and spent: > 30 minutes on discharge. Completed by: Remi Obrien MD on 11/02/24, 12:17 PM AUTHENTICATED BY REMI OBRIEN, ON 11/02/2024 12:22:12 [facility] 11-02-2024 Hospital course Narrative [facility] DISCHARGE SUMMARY -- [facility] Anila Pulliam Admitted: 11/01/2024 Discharge Date: 11/02/24 PCP Handoff Recommended Outpatient Testing Follow up with neurolgoy Results Pending At Discharge none Clinical Summary Please continue with home blood pressure meds, Please continue with asprin 81 and plavix 75 for 21 days to end Nov 23. Starting Nov 24 please take asprin 81 only Please take daily lipitor 40 mg for cholestrol Please follow up with neurology Anila Pulliam is a 74 y.o. female patient of Nahomy Frank PA-C with history of HTN presented to [facility] on 11/01/2024 with rt facial droop and RUE weakness . Acute CVA Rt facial droop RUE weakness CT head with low density lesion in b.g. CTA with no large vessel lesions Lacunar stroke MRI & echo as outptient or further neuro reccs DAPT for 21 days to end nov 24 then asprin Plavix load inpatient Statin Essential HTN home losartan and verapamil Glaucoma Continue home Xalatan Discharge Medications Discharge Medications New Medications Details atorvastatin 40 MG tablet Commonly known as: LIPITOR Take 1 (one) tablet (40 mg total) by mouth nightly . Quantity: 30 tablet Medications To Continue Details latanoprost 0.005 % ophthalmic solution Commonly known as: XALATAN Administer 1 (one) drop to both eyes at bedtime . losartan 50 MG tablet Commonly known as: COZAAR Take 1 (one) tablet (50 mg total) by mouth daily . multivitamin per tablet Take 1 (one) tablet by mouth daily . verapamil sr 120 MG er tablet Commonly known as: CALAN-SR Take 1 (one) tablet (120 mg total) by mouth daily . Physician(s) Follow Up: Everardo Blood, EQUALIZING SAW OPERATOR [address] [place], [place] [id number] Follow up in 3 week(s) Condition at Discharge: Stable Disposition: Home I reviewed discharge recommendations with the patient in person. Patient instructions, including activity, were given to the patient/family at discharge. On day of discharge I saw Anila Pulliam and spent: > 30 minutes on discharge. Completed by: Remi Obrien MD on 11/02/24, 12:17 PM documented in this encounter [facility] 11-02-2024 Hospital Discharge instructions Remi Obrien MD - 11/02/2024 12:15 PM EST Please adhere to the following instructions, this is what you should do when you leave the hospital. This was written by your discharging physician from the hospital stay Please continue with home blood pressure meds, Please continue with asprin 81 and plavix 75 for 21 days to end Nov 23. Starting Nov 24 please take asprin 81 only Please take daily lipitor 40 mg for cholestrol Please follow up with neurology The following attachments cannot be sent through Care Everywhere.Stroke: Risk Factors: General Info (Tajik)Stroke: Primary Prevention: General Info (Tajik)documented in this encounter [facility] 11-02-2024 Consult note Formatting of th is note is different from the original. Occupational Therapy OCCUPATIONAL THERAPY EVALUATION, TREATMENT, AND DISCHARGE NOTE Dx: Acute CVA - Likely left hemispheric lacunar stroke- Low-density focus in the left basal ganglia (Ischemic ), right facial droop, right ue weakness OCCUPATIONAL THERAPY EVALUATION Skilled Therapy Needs After Discharge Anticipate Resolution of Current Assessment Limitations Including: Mechanical Barriers Are OT Skilled Therapy Services Needed After Discharge: Yes Intensity of OT Skilled Therapy: 2-3 days per week Anticipated Duration of OT Skilled Therapy: Duration 10 - 30 days Rehab Potential: Good Outcomes Measures Prior Function Daily Activity Raw Score: 24 Prior Function Daily Activity % Impaired: 0% AM-PAC Daily Activity Raw Score: 20 AM-PAC Daily Activity % Impaired: 38.32% Occupational Therapy Assessment The patient's current functional participation deficits are feeding, grooming, UE dressing, LE dressing, bathing, toileting, home management, meal preparation, functional mobility. This reduced independence will limit their life roles of premorbid level individual. The patient's co morbidities do not affect patient performance in the above activities and roles. The performance deficits are a result of neurological impairment(s) in right, upper extremity, dominant including strength, range of motion, balance, dexterity, coordination, sensation. The patient's home setup is a tearoom host/hostess, family / caregiver support is a tearoom host/hostess for return to prior level of function. The patient's compliance is a tearoom host/hostess, awareness of own capacity and performance is a tearoom host/hostess to return to prior level of function. During the assessment, minimal to moderate modification of task was required and limited treatment options were identified in the plan of care. This consultation required expanded review of the medical and therapy history. Activity Tolerance Activity Tolerance: Endurance does not limit participation in activity UE Function Pt demonstrates AROM WFL for BUE in all planes. Pt with shoulder flexion and extension 4+/5 bilaterally. Pt demonstrates diminished coordination skills in R dominant hand. Therapy Precautions Orthotic Devices: No Weight Bearing Status: WFL General Rehab Precautions: Fall risk Cognition Arousal/Alertness: Appropriate responses to stimuli Orientation Level: Oriented X4 Executive functioning: WFL Safety Judgment: Good awareness of safety precautions Problem Solving: Able to problem solve independently Attention: Attends to distracted environment Hearing Status: WFL Social Interaction: WFL, Cooperative ADL Lower Body Dressing: Stand by assist (pt demonstrating figure 4 to don socks while seated in chair with SBA) Toileting: (declines need) Functional Mobility: Supervision, Modified independent (without AD in hallway) Bed Mobility Supine to Sit: Independent Functional Transfers Sit to Stand: Independent Home Living Obtained Home Living and PLOF info from: Patient, Patient s family member Lives With: Spouse Type of Home: House Home Layout: One level (Laundry on main) Steps to enter home: Yes Rails to enter home: 2 rails Number of stairs to enter home: 3 Bathroom Shower/Tub: Tub/shower unit, Main level Bathroom Toilet: Standard, Main level Mobility Equipment: Wheeled walker, Cane, Wheelchair - manual Additional Objective Details - Home Living: Pt mainly sponge bathes Prior Level of Function Level of [place] - Transfers/Ambulation/Mobility: Independent with functional transfers, Independent with household ambulation, Independent with community ambulation (no AD) Level of [place] - ADLs: Independent Level of [place] - Homemaking: Independent OCCUPATIONAL THERAPY TREATMENT NOTE Total Treatment Time (Total Session Time): 20 Minutes Total Timed Code Treatment Minutes: 8 Minutes Therapeutic Exercise Pt provided with blue resistive sponge, yellow theraputty, and HEP to increase R hand strength and FMC. HEP reviewed with pt, and pt able to replicate exercises on HEP with theraputty. Pt instructed to complete 10 repetitions of each exercise twice daily. Pt and spouse with no further questions regarding HEP. Neuromuscular Reeducation Sitting Balance - Static: Independent Sitting Balance - Dynamic: Independent Standing Balance - Static: Independent Standing Balance - Dynamic: Independent Additional Treatment Details Pt's spouse present for OT evaluation. Pt with no further acute OT needs, OT to sign off. Past Medical History: Diagnosis Date Hypertension Past Surgical History: Procedure Laterality Date CHOLECYSTECTOMY WISDOM TOOTH EXTRACTION Bilateral For complete objective data, detailed plan of care and patient education refer to: OT Evaluation flowsheet, OT Evaluation and Treatment flowsheet, OT Treatment flowsheet, patient Plan of Care, Plan of Care progress note, and Patient Education. This note stands as the current Discharge Summary upon patient discharge from the hospital or completion of Occupational Therapy Plan of Care. [facility] 11-02-2024 Consult note Formatting of th is note is different from the original. Occupational Therapy OCCUPATIONAL THERAPY EVALUATION, TREATMENT, AND DISCHARGE NOTE Dx: Acute CVA - Likely left hemispheric lacunar stroke- Low-density focus in the left basal ganglia (Ischemic ), right facial droop, right ue weakness OCCUPATIONAL THERAPY EVALUATION Skilled Therapy Needs After Discharge Anticipate Resolution of Current Assessment Limitations Including: Mechanical Barriers Are OT Skilled Therapy Services Needed After Discharge: Yes Intensity of OT Skilled Therapy: 2-3 days per week Anticipated Duration of OT Skilled Therapy: Duration 10 - 30 days Rehab Potential: Good Outcomes Measures Prior Function Daily Activity Raw Score: 24 Prior Function Daily Activity % Impaired: 0% AM-PAC Daily Activity Raw Score: 20 AM-PAC Daily Activity % Impaired: 38.32% Occupational Therapy Assessment The patient's current functional participation deficits are feeding, grooming, UE dressing, LE dressing, bathing, toileting, home management, meal preparation, functional mobility. This reduced independence will limit their life roles of premorbid level individual. The patient's co morbidities do not affect patient performance in the above activities and roles. The performance deficits are a result of neurological impairment(s) in right, upper extremity, dominant including strength, range of motion, balance, dexterity, coordination, sensation. The patient's home setup is a tearoom host/hostess, family / caregiver support is a tearoom host/hostess for return to prior level of function. The patient's compliance is a tearoom host/hostess, awareness of own capacity and performance is a tearoom host/hostess to return to prior level of function. During the assessment, minimal to moderate modification of task was required and limited treatment options were identified in the plan of care. This consultation required expanded review of the medical and therapy history. Activity Tolerance Activity Tolerance: Endurance does not limit participation in activity UE Function Pt demonstrates AROM WFL for BUE in all planes. Pt with shoulder flexion and extension 4+/5 bilaterally. Pt demonstrates diminished coordination skills in R dominant hand. Therapy Precautions Orthotic Devices: No Weight Bearing Status: WFL General Rehab Precautions: Fall risk Cognition Arousal/Alertness: Appropriate responses to stimuli Orientation Level: Oriented X4 Executive functioning: WFL Safety Judgment: Good awareness of safety precautions Problem Solving: Able to problem solve independently Attention: Attends to distracted environment Hearing Status: WFL Social Interaction: WFL, Cooperative ADL Lower Body Dressing: Stand by assist (pt demonstrating figure 4 to don socks while seated in chair with SBA) Toileting: (declines need) Functional Mobility: Supervision, Modified independent (without AD in hallway) Bed Mobility Supine to Sit: Independent Functional Transfers Sit to Stand: Independent Home Living Obtained Home Living and PLOF info from: Patient, Patient s family member Lives With: Spouse Type of Home: House Home Layout: One level (Laundry on main) Steps to enter home: Yes Rails to enter home: 2 rails Number of stairs to enter home: 3 Bathroom Shower/Tub: Tub/shower unit, Main level Bathroom Toilet: Standard, Main level Mobility Equipment: Wheeled walker, Cane, Wheelchair - manual Additional Objective Details - Home Living: Pt mainly sponge bathes Prior Level of Function Level of [place] - Transfers/Ambulation/Mobility: Independent with functional transfers, Independent with household ambulation, Independent with community ambulation (no AD) Level of [place] - ADLs: Independent Level of [place] - Homemaking: Independent OCCUPATIONAL THERAPY TREATMENT NOTE Total Treatment Time (Total Session Time): 20 Minutes Total Timed Code Treatment Minutes: 8 Minutes Therapeutic Exercise Pt provided with blue resistive sponge, yellow theraputty, and HEP to increase R hand strength and FMC. HEP reviewed with pt, and pt able to replicate exercises on HEP with theraputty. Pt instructed to complete 10 repetitions of each exercise twice daily. Pt and spouse with no further questions regarding HEP. Neuromuscular Reeducation Sitting Balance - Static: Independent Sitting Balance - Dynamic: Independent Standing Balance - Static: Independent Standing Balance - Dynamic: Independent Additional Treatment Details Pt's spouse present for OT evaluation. Pt with no further acute OT needs, OT to sign off. Past Medical History: Diagnosis Date Hypertension Past Surgical History: Procedure Laterality Date CHOLECYSTECTOMY WISDOM TOOTH EXTRACTION Bilateral For complete objective data, detailed plan of care and patient education refer to: OT Evaluation flowsheet, OT Evaluation and Treatment flowsheet, OT Treatment flowsheet, patient Plan of Care, Plan of Care progress note, and Patient Education. This note stands as the current Discharge Summary upon patient discharge from the hospital or completion of Occupational Therapy Plan of Care. 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 Therapy Services Needed After Discharge: No PT DME Recommendation: None Rehab Potential: Excellent PT Caregiver Readiness PT Rationale: Working toward discharge home, Stroke Caregiver Readiness PT Training Progress: Completed PT Identified Caregiver: Spouse (patient) Caregiver Present for PT Session: Yes PT Training Provided For: Bed mobility - completed, Transfers - completed, Gait / locomotion- completed Caregiver response to PT training: Verbalizes understanding, Returns demonstration (patient) Outcomes Measures Prior Function - Basic Mobility Raw Score: 24 Points Prior Function - Basic Mobility % Impaired: 0% AM-PAC Basic Mobility Raw Score: 20 Points AM-PAC Basic Mobility % Impaired: 33.32% Physical Therapy Assessment History: The following factors influence the patient's participation in the PT plan of care: Personal Factors: Age, Body Habitus Environmental Factors: Steps to enter home The following co-morbidities (from this admission or prior) influence the patient's participation in this plan of care: See H & P Number of History elements affecting this patient's PT plan of care: 1 to 2 Examination of Body Systems: The patient presents with: Musculoskeletal impairments: Strength (right UE). These impairments result in limitations of . These impairments result in restrictions of . Number of Body Systems elements affecting this patient's PT plan of care: 1 to 2. Clinical Presentation: The patient's clinical presentation for this PT evaluation is with stable and/or uncomplicated characteristics as evidenced by current PT documentation. Activity Tolerance Activity Tolerance: Endurance does not limit participation in activity Therapy Precautions Orthotic Devices: No Weight Bearing Status: WFL Balance Assessment Sitting Balance - Static: Independent Sitting Balance - Dynamic: Independent, with unilateral LUE support, with unilateral RUE support, with back unsupported Standing Balance - Static: Modified independent (adele ue support on bed) Dynamic Etching Processor - Standing Static: (no AD) Standing Balance - Dynamic: Independent, Supervision (no AD) Dynamic Etching Processor - Standing Dynamic: (no AD) Loss of Balance- Standing Dynamic: (no LOB during functional mobility) Bed Mobility Rolling: Independent Supine to Sit: Independent Sit to Supine: Independent Dynamic Etching Processor: (no rail; HOB 20 degs) Transfers Sit to Stand: Modified independent (adele ue for STS) Bed to Chair: Independent, Supervision Stand Pivot Transfers: Independent, Supervision Dynamic Etching Processor: (no device) Gait/Locomotion Gait Assistance: Supervision, Independent Assistive Device: (no AD) Distance: 250 Feet Pattern: Within Functional Limits, step through Weight Bearing Status: able to maintain Gait Loss(es) of Balance: (no LOB with quick 360 deg turns or during any functional ambulation this date.) Environment/Terrain: open/community environment, multiple distractions Additional Assessment Details Right facial droop with speech mildly slurred. See OT cierra for ue assessment Pt up in chair with present and MD in room , post PT session. Handoff provided to RN. Home Living Obtained Home Living and PLOF info from: Patient, Patient s family member Lives With: Spouse Type of Home: House Home Layout: One level (Laundry on main) Steps to enter home: Yes Rails to enter home: 2 rails Number of stairs to enter home: 3 Bathroom Shower/Tub: Tub/shower unit, Main level Bathroom Toilet: Standard, Main level Mobility Equipment: Wheeled walker, Cane, Wheelchair - manual Additional Objective Details - Home Living: Pt mainly sponge bathes Prior Level of Function Level of [place] - Transfers/Ambulation/Mobility: Independent with functional transfers, Independent with household ambulation, Independent with community ambulation (no AD) Level of [place] - ADLs: Independent Level of [place] - Homemaking: Independent Subjective Impression - Prior Function: No falls in last 6 months. Pt reports she typically walks 1 mile when weather appropriate Past Medical History: Diagnosis Date Hypertension Past Surgical History: Procedure Laterality Date CHOLECYSTECTOMY WISDOM TOOTH EXTRACTION Bilateral For complete objective data, detailed plan of care and patient education refer to: PT Evaluation flowsheet, PT Evaluation and Treatment flowsheet, PT Treatment flowsheet, patient Plan of Care, Plan of Care progress note, and Patient Education. This note stands as the current Discharge Summary upon patient discharge from the hospital or completion of Physical Therapy Plan. Associated Order(s): IP CONSULT TO CARE MANAGEMENT Care Management Consult Note Date: 11/02/2024 Time: 10:10 AM Patient Name: Anila Pulliam Date of : 1950 Reason for Consult: Discharge Plan: D/C Disposition: Home Plan A: Home Discharging Transportation Plan: Discharge Plan Status: In to see patient, her spouse was also at bedside. Patient and spouse were educated on the social service role. Patient is from home and resides with her spouse. Spouse reports strong support from other family members as well. Patient does not drive. Patient reports transportation is not an issue. Patient reports the home is one-floor with three steps to enter. Patient reports she is able to obtain prescriptions. Patient follows with Nahomy Frank PA-C, for primary care. Patient is Mennonite and self pay. Patient and spouse are agreeable to talk to insurance and financial services agent. Patient/spouse denied need for any services or assistance at discharge. Secure chat sent to the financial advocates. [phone] Secure chat received from Dr. Obrien. Dr. Obrien out like outpatient therapy order placed should patient decide she would like therapy. Order placed. Assessment and Background Information: Living Arrangements: Spouse/significant other Caregiver Identified: Yes Caregiver's Name: Spouse, family, community Support Systems: Mormon/jenise community, Spouse/significant other, Family members Assistance Needed: Independent prior Type of Residence: Private residence Prior to Admission Home Care Services: No Patient expects to be discharged to:: Home Does the patient need discharge transport arranged?: No Current Home Equipment: None Holistic Assessment Medication adherence problem:: No History of falls in last 6 months:: No Family aware of the patient's advance care planning wishes:: Yes Do you have any cultural/spiritual connections or beliefs that would impact how we deliver your care?: No Chronic pain:: No Speech Pathology General Cognition / Communication Eval Note Per chart, Anila Pulliam is a 74 y.o. female patient of Nahomy Frank PA-C with history of HTN presented to [facility] on 11/01/2024 with rt facial droop and RUE weakness. Patient participated in an informal speech, language, and cognition evaluation in the setting of hospitalization s/p suspected CVA. Patient and spouse denied noting acute cognitive deficits. Patient reported ongoing slurred speech. Motor speech was perceived as mildly dysarthric as characterized by imprecise articulation, low vocal intensity, and difficulty with multisyllabic and connected speech. PLASTERING SUPERVISOR will continue to follow. Auditory Comprehension Severity rating: [facility] Expressive Language Severity rating: [facility] Motor Speech Severity ratin-90% (Mild) Cognition Severity rating: baseline per pt/CG report Factors for returning to Prior Level of Function: Factors for Returning to Prior Level of Function Body Structure and Function: Neurologic impairment Explain Impairments: s/p CVA Activities and Participation: ADL/IADL limitation, Communication limitation Explain Limitations: ride sided weakness s/p CVA, mild dysarthria Environmental Factors: Home situation, Family/caregiver support Explain Environmental Factors: presents from home, family at bedside Personal Factors: Awareness of own capacity and performance Explain Personal Factors: voicing insight Skilled therapy needs: Skilled Therapy Needs: Are ST Skilled Therapy Services Needed After Discharge: Yes Functional Limitations: communication deficits Intensity of ST Skilled Therapy: 2-3 days per week (vs none, pending acute care progress) Anticipated Duration of ST Skilled Therapy: Duration 7 - 10 days Prior function: Prior Function Reason for Referral: Stroke / neuro Primary Language: Tajik Living Situation: With others, Independent with ADL's Prior Speech Deficit: No known previous deficits, Per chart review, Per patient report Prior Language Deficit: No known previous deficits, Per chart review, Per patient report Prior Cognitive Deficit: Memory changes, Per patient report, Per caregiver report Other pertinent diagnoses affecting cog/comm/voice: CVA Baseline Assessment Subjective Impression: Alert, Cooperative, Pleasant Mood Respiratory Status: Room air Oral motor: Oral/Motor Oral Motor Impression-Severity Scale: Minimal, Mild Labial ROM: Reduced right Labial Symmetry at Rest: Abnormal symmetry right Lingual ROM: Within Functional Limits Lingual Symmetry: Within Functional Limits Mandible: Within Functional Limits Facial ROM: Reduced right Facial Symmetry at Rest: Right lower paresis (subjectively improved in comparison to initial evaluation on 11/01) Auditory Comprehension: Auditory Comp Impression-Severity Scale: WFL Visual Perception: Visual Perception: No acute visual changes Reading Comprehension: Reading Comp Impression-Severity: Requires further assessment Expressive Language: Expressive Language Impression-Severity: WFL Primary Mode of Expression: Verbal, Complex conversation level Motor Speech: Motor Speech Impression Severity: 75-90% (Mild) Speech Intelligibility: Exceptions to WFL Conversation: 75-90% (Mild) Dysarthria Characteristics: Imprecise articulation, Low intensity, Difficulty with multisyllabic words, Difficulty with connected speech Recommended Motor speech strategies: Increase volume, Slow speech rate, Over-articulation Written Expression: Written Expression Impression-Severity: Requires further assessment Cognitive-Communication: Speech Cognition Impression-Severity: baseline per pt/CG report Orientation Level: Oriented x4 Memory: Exceptions to WFL Delayed recall: No Impairment Working memory: No Impairment Long-term memory: No Impairment Verbal Problem Solving: Within Functional Limits Behavioral Observations: good awareness of safety precautions Insight: Good awareness of impairment, Good insight into impact of injury/deficits Task Initiation: WFL Flexibility of Thought: Within functional limits Pragmatics: No overt deficits Patient O-Log (Orientation Log) Score - Cut off score 25 or better on two separate administrations: Orientation-Log Orientation-log: Yes City: [address]: 3 Name of Hospital: 3 Month: 3 Date: 3 Year: 3 Day of Week: 3 Clock Time: 3 Etiology / Event: 3 Pathology Deficits: 3 Orientation Log Total Score (out of 30): 30 Patient Cog-Log (Cognitive Log) Score - Cut off score 25 or better: Cognitive-Log Cognitive-log: No Variance - Cognitive Log: Patient high functioning - testing not indicated PLASTERING SUPERVISOR Caregiver Readiness: PLASTERING SUPERVISOR Caregiver Readiness ST Rationale: Working toward discharge home, Stroke Caregiver Readiness ST Training Progress: Initiated & ongoing - follow-up required ST Identified Caregiver: Spouse, Other (comment) (Patient) Caregiver Present for ST Session: Yes ST Training Provided For: Communication - follow-up required, Safe swallow strategies - follow-up required, Exercise program - follow-up required, Stroke - follow-up required Caregiver response to training: Verbalizes understanding Speech Plan: Further acute Speech Therapy services indicated: Yes Patient Goal for Treatment: To go home, Improve communication Rehab Potential: Good, for established goals Past Medical History: Diagnosis Date Hypertension Past Surgical History: Procedure Laterality Date CHOLECYSTECTOMY WISDOM TOOTH EXTRACTION Bilateral For complete objective data, detailed plan of care, and education refer to: Speech Comm/Cog Eval flow sheet, as well as patient Plan of Care and Education documentation. This note stands as the current Discharge Summary upon patient discharge from the hospital or completion of Speech Pathology Plan of Care Associated Order(s): IP CONSULT TO NEUROLOGY Neurology Inpatient Consult [facility] 11/01/2024 Patient: Anila Pulliam Date of : 1950 (74 y.o.) Referring Provider: Refer to consult order in electronic medical record PCP: Nahomy Frank PA-C ASSESSMENT: 74 y.o. female presented to [facility] on 11/01/2024 with history of hypertension who presents for evaluation of right-upper extremity weakness, right facial droop, and slurred speech that she woke up with at 4 AM on 11/01/2024. On arrival, blood pressures were 207/84. NIHSS stroke scale initially Initial NIH stroke scale of 5, subsequently improved to 4 at the time of my evaluation (2 for right facial droop, 1 for right upper extremity, 1 for slight slurred speech). There is also more severe left hand head inspector and center marker strength weakness, that is typically not calculated on a NIH stroke scale. Noncontrast CT revealed a low-density focus in left basal ganglia, however no other acute changes. CT angiogram did not reveal any large vessel occlusions. Patient was not deemed to be a candidate for IV tPA and was loaded with aspirin and Plavix in the ER. Neurology was consulted for further recommendations. Of note, the patient is a Mennonite, currently without insurance and planning to pay [id number]. While CT head did reveal this low-density focus that could be a potential seizure focus, considering that she presented within a few hours of onset of symptoms, it would be unlikely for the lacunar stroke to show this extent of of encephalomalacia. Unclear if there were any clear cortical signs, although initial NIHSS did assign 1 point to language. No gaze deviation, hemianopia or expressive difficulty was described by patient. While in ideal circumstances, an MRI can clarify etiology of symptoms, overall symptoms appear to be linked to a lacunar stroke. She is currently monitored on telemetry, and unless atrial fibrillation is seen, MRI or echo is unlikely to microsoft exchange architect. Hence will recommend continuing DAPT for 21 days followed by aspirin monotherapy. The patient can follow-up outpatient with results of an outpatient echocardiogram and repeat CT in 3 weeks. If atrial fibrillation is noted however, that plan might change. PLAN: Likely left hemispheric lacunar stroke (Ischemic Infarct) - Location: Unclear - Etiology: Lacunar/small vessel Testing: No further neurologic testing inpatient, apart from lipid panel. Repeat CT head and echocardiogram as an outpatient Labs: HbA1c 5.6, lipid panel pending Cardiac Rhythm: NO Afib noted to date Continue the following medications for stroke prevention: Anti-thrombotic: Plavix and ASA 81 mg for 21 days, then d/c Plavix .continue statin therapy Blood pressure goal - Permissive hypertension (blood pressure less than 220/120 mmHg for 48 hours and then gradually normalize over 5 to 7 days), gentle IV hydration and head of bed flat. LDL goal < 70, Hemoglobin A1c goal 6.5 or lower, Educated on the importance of adequate sleep, exercise (30 minutes brisk exercise 5 days per week), hydration (at least 64 oz of water daily), and mediterranean style diet were discussed. Extensive stroke prevention teaching provided today. All questions and concerns were addressed. uMlu Caro MD Staff Neurologist DIAGNOSTIC TESTING SUMMARY: Pending Lab and Radiology Results Order Current Status Hemoglobin A1c In process Resulted Testing: (MRI/CT/XR, EEG, EMG, CSF, Cardiac, Labs) CT head\11/01/2023 1. Low-density focus in the left basal ganglia may correlate with age-indeterminate lacunar infarct or prominent perivascular space. MRI could be considered if clinical symptoms warrant. 2. No acute hemorrhage or midline shift. CT angiogram of the head and neck 11/01/2023 1. No proximal intracranial arterial occlusion or high-grade stenosis. No intracranial aneurysm or vascular malformation. 2. No significant carotid or vertebral artery stenosis in the neck. No acute dissection. SUBJECTIVE: Chief Complaint/Reason for Consult: Acute ischemic stroke Informant(s): Patient, , Care Team/Chart History of Present Illness: Anila Pulliam is a 74 y.o. female with history of hypertension who presents for evaluation of right-upper extremity weakness, right facial droop, and slurred speech that she woke up with at 4 AM on 11/01/2024. On arrival, blood pressures were 207/84. NIHSS stroke scale initially Initial NIH stroke scale of 5, subsequently improved to 4 at the time of my evaluation (2 for right facial droop, 1 for right upper extremity, 1 for slight slurred speech). There is also more severe left hand head inspector and center marker strength weakness, that is typically not calculated on a NIH stroke scale. Noncontrast CT revealed a low-density focus in left basal ganglia, however no other acute changes. CT angiogram did not reveal any large vessel occlusions. Patient was not deemed to be a candidate for IV tPA and was loaded with aspirin and Plavix in the ER. Neurology was consulted for further recommendations. No history of previous strokes. Apart from hypertension denies any other medical issues. Review of Systems: Neurological ROS: negative for - behavioral changes, bowel and bladder control changes, confusion, gait disturbance, headaches, impaired coordination/balance, memory loss, seizures, tremors, or visual changes History: Past Medical History: Diagnosis Date Hypertension Past Surgical History: Procedure Laterality Date CHOLECYSTECTOMY WISDOM TOOTH EXTRACTION Bilateral Social History Socioeconomic History Marital status: Tobacco Use Smoking status: Never Passive exposure: Never Smokeless tobacco: Never Substance and Sexual Activity Alcohol use: Not Currently Drug use: Not Currently Social Drivers of Health Food Insecurity: No Food Insecurity (11/01/2024) Hunger Vital Sign Worried About Running Out of Food in the Last Year: Never true Ran Out of Food in the Last Year: Never true Transportation Needs: No Transportation Needs (11/01/2024) PRAPARE - Transportation Lack of Transportation (Medical): No Lack of Transportation (Non-Medical): No Housing Stability: Low Risk (11/01/2024) Housing Stability Vital Sign Unable to Pay for Housing in the Last Year: No Number of Times Moved in the Last Year: 0 Homeless in the Last Year: No Family History Problem Relation Age of Onset Hypertension Mother Diabetes Father Allergies: Patient has no known allergies. HOME Medications: Prior to Admission medications Medication Sig Start Date End Date Taking? Authorizing Provider latanoprost (XALATAN) 0.005 % ophthalmic solution Administer 1 (one) drop to both eyes at bedtime . Yes Provider, MD Joelle losartan (COZAAR) 50 MG tablet Take 1 (one) tablet (50 mg total) by mouth daily . 10/31/24 Yes Joelle Mascorro MD multivitamin per tablet Take 1 (one) tablet by mouth daily . Yes Joelle Mascorro MD verapamil sr (CALAN-SR) 120 MG er tablet Take 1 (one) tablet (120 mg total) by mouth daily . 10/31/24 Yes Joelle Mascorro MD HOSPITAL Infusions: HOSPITAL Scheduled Medications: aspirin 325 mg Oral Daily Or aspirin 300 mg Rectal Daily atorvastatin 40 mg Oral Nightly clopidogreL 300 mg Oral Once enoxaparin (LOVENOX) injection 40 mg Subcutaneous Nightly latanoprost 1 drop Both Eyes at bedtime [START ON 11/02/2024] multivitamin 1 tablet Oral Daily potassium chloride SA 40 mEq Oral Once sodium chloride (PF) 5 mL Intravenous Q8H [facility] PRN Medications: acetaminophen, aluminum-magnesium hydroxide-simethicone, bisacodyL, labetalol OR hydrALAZINE, magnesium hydroxide, ondansetron, ondansetron, perflutren lipid microspheres, Saline lock IV AND sodium chloride (PF) AND sodium chloride (PF) AND sodium chloride 0.9 %, traZODone OBJECTIVE: Physical Examination: BP (!) 180/85 Pulse 87 Temp 99.2 F (37.3 C) (Oral) Resp 18 Ht 5' 7 Wt 93.1 kg (205 lb 4 oz) SpO2 96% BMI 32.15 kg/m 11/01/24 1840 NIH Stroke Scale Level of Consciousness (1a.) 0 LOC Questions (1b.) 0 LOC Commands (1c.) 0 Best Gaze (2.) 0 Visual (3.) 0 Facial Palsy (4.) 2 Motor Arm, Left (5a.) 0 Motor Arm, Right (5b.) 1 Motor Leg, Left (6a.) 0 Motor Leg, Right (6b.) 0 Limb Ataxia (7.) 0 Sensory (8.) 0 Best Language (9.) 0 Dysarthria (10.) 1 Extinction and Inattention (11.) (Formerly Neglect) 0 Total 4 Patient is awake and alert. Normal development and fairly groomed. Not in distress or pain. Vital signs were reviewed. Neck is supple. No meningeal sign. No skin rash. Patient is oriented to month, season, year, place, and person. Language is intact. Able to name and repeat. Speech is fluent, although very slightly slurred due to facial droop, and is spontaneous. General fund of knowledge is intact. Pupils are 4 mm equally reactive to light. No ptosis, nystagmus, or visual field cuts. Extraocular muscles are intact. Face is asymmetric, with UMN type right facial droop. And facial sensation is intact. Hearing is grossly intact. Palate moves symmetrical upward. Positive shoulder shrug. Tongue is midline. Motor: Normal bulk and tone. No pronator drift. SA EE EF WE WF DI HF KE KF DF PF Right 4+ 5- 5 5- 5 4 5 5 5 5 5 Left 5 5 5 5 5 5 5 5 5 5 5 Reflexes: Right Left Comments Biceps 2 2 Triceps 2 2 Brachioradialis 2 2 Patellar 2 2 Achilles 2 2 Coordination: [id number] intact bilaterally. Slight difficulty with the right upper extremity due to hand weakness Sensation: Comments Light touch Intact throughout Gait: deferred Mulu Caro MD 11/01/2024 Timed code: 81 minutes Includes preparation to see the patient (reviewing previous history, exam, test, procedure, and medications); Obtaining history from the patient/family/caregivers; performing evaluation and examination; ordering medications, tests, or procedures; referring and communicating with other healthcare professionals; counseling and education of the patient/family/caregiver; independently interpreting results (Tests, labs, imaging) and communicating results to the patient/family/caregiver; coordination of care; documenting clinical information in the electronic and other health records. Speech Pathology Bedside Swallow Evaluation Per chart, Anila Pulliam is a 74 y.o. female patient of Nahomy Frank PA-C with history of HTN presented to [facility] on 11/01/2024 with rt facial droop and RUE weakness. Recommendations: Further Eval Rxs: Repeat BSE, Cognitive-communication evaluation PO Recommendations: NDD diet NDD diet recommendation: Regular solids, Thin liquids Compensatory Strategies: Eat/feed slowly, Lingual sweep, Extra swallow every 2-3 bites Postures: Sit as upright as possible for all oral intake, Up 30 min after meal Food Presentation: Small bites Liquid Presentation: Small sips Medication Presentation: Whole with thins Amount of Supervision: Set up assistance with tray Treatment Techniques: Train swallowing strategies, Oral motor exercises Further Recommendations: Oral care TID, Assess for diet tolerance Recommended Referrals: Physical Therapy, Occupational Therapy Discharge Recommendations: Skilled Therapy Needs: Are ST Skilled Therapy Services Needed After Discharge: (TBD, further assessment required) Prior Function: Reason for Referral: Stroke / neuro, Failed nursing swallow screening Prior Swallow Deficit: No known previous deficits, Per chart review, Per patient report Other Pertinent Diagnoses Affecting Swallow: CVA Diet Prior to BSE: NPO Primary Language: Tajik Baseline Assessment: Subjective Impression: Alert, Cooperative, Pleasant Mood, Caregiver/family at bedside Respiratory Status: Room air Dentition: Permanent Self-Feeding Barriers: Functional for self-feeding (With intermittent assist d/t right sided UE weakness) Patient Positioning: Upright in bed Baseline Cough: (Not present) Secretion Management: Adequate Volitional Swallow: Present Oral Motor: Oral Motor Impression-Severity Scale: Mild Labial ROM: Reduced right Labial Symmetry at Rest: Abnormal symmetry right Labial Strength: Reduced Lingual ROM: Within Functional Limits Lingual Symmetry: Within Functional Limits Mandible: Within Functional Limits Facial ROM: Reduced right Facial Symmetry at Rest: Right lower paresis Facial Sensation: Within Functional Limits Apraxia: None present Voice: Breath Support: WFL Vocal Quality: WFL Vocal Intensity: WFL Consistencies Assessed: CONSISTENCY PRESENTATION ORAL (SIGNS / SYMPTOMS) PHARYNGEAL (SIGNS / SYMPTOMS) ICE Spoon, PLASTERING SUPERVISOR fed Within functional limits (No overt s/sx of penetration/aspiration) THIN Cup, Straw, Self Fed, Continuous drinks Within functional limits (No overt s/sx of penetration/aspiration) PUREE Self fed, Spoon Within functional limits Cough - delayed SOLID Self Fed (Prolonged, however overall functional mastication) (No overt s/sx of penetration/aspiration) Pt was seen for completion of BSE in the setting of hospitalization s/p CVA. Pt denied swallow deficits, including: coughing/choking w/PO, globus sensation, difficulty with medications. Pt did endorse ongoing nausea. Pt accepted PO trials as detailed above w/dry, delayed cough noted x1 following puree trial. Difficult to determine source given delayed presentation. Will initiate diet level of thin liquids/regular solids, medications per pt preference. PLASTERING SUPERVISOR will continue to follow for ongoing assessment. Impressions-Severity Level: Oral Severity Scale: Minimal, Mild Pharyngeal Severity Scale: Suspect impaired Factors for Returning to PLOF: Body Structure and Function: Neurologic impairment Explain Impairments: s/p CVA Activities and Participation: ADL/IADL limitation Explain Limitations: right sided weakness s/p CVA Environmental Factors: Home situation, Family/caregiver support Explain Environmental Factors: presents from home, family at bedside Personal Factors: Awareness of own capacity and performance Explain Personal Factors: voicing insight PLASTERING SUPERVISOR Caregiver Readiness: PLASTERING SUPERVISOR Caregiver Readiness ST Rationale: Working toward discharge home, Stroke Caregiver Readiness ST Training Progress: Initiated & ongoing - follow-up required ST Identified Caregiver: Spouse, Other (comment) (Patient) Caregiver Present for ST Session: Yes ST Training Provided For: Safe swallow strategies - follow-up required (Risk of aspiration) Caregiver response to training: Verbalizes understanding Speech Plan: Further acute Speech Therapy services indicated: Yes Role of ST Discussed: With patient, With family/caregiver Risk/Benefits of ST Discussed: With patient, With family/caregiver Patient Goal for Treatment: To go home Rehab Potential: Excellent Further Recommendations: BSE re-assessment, Speech/language/cognitive evaluation Recommended Referrals: Physical Therapy, Occupational Therapy Speech Pathology Bedside Swallow Treatment Note Total Treatment Time (Total Session Time): 15 Minutes Skilled Interventions and Response to Interventions: BSE Skilled Intervention Patient education / training Caregiver/family education/training with patient involvement Swallowing Strategies verbalized comprehension of presented information verbalized comprehension of presented information Oral Care Risk of Aspiration verbalized comprehension of presented information verbalized comprehension of presented information Free Water Protocol BSE/MBS/FEES Diet Texture Modifications Solid texture modification Thickening liquids For complete objective data, detailed plan of care, and education refer to: Speech Bedside Swallow Evaluation flow sheet, as well as patient Plan of Care and Education documentation. This note stands as the current Discharge Summary upon patient discharge from the hospital or completion of Speech Pathology Plan of Care. documented in this encounter [facility] 11-02-2024 Consult note Formatting of th is note is different from the original. 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 Therapy Services Needed After Discharge: No PT DME Recommendation: None Rehab Potential: Excellent PT Caregiver Readiness PT Rationale: Working toward discharge home, Stroke Caregiver Readiness PT Training Progress: Completed PT Identified Caregiver: Spouse (patient) Caregiver Present for PT Session: Yes PT Training Provided For: Bed mobility - completed, Transfers - completed, Gait / locomotion- completed Caregiver response to PT training: Verbalizes understanding, Returns demonstration (patient) Outcomes Measures Prior Function - Basic Mobility Raw Score: 24 Points Prior Function - Basic Mobility % Impaired: 0% AM-PAC Basic Mobility Raw Score: 20 Points AM-PAC Basic Mobility % Impaired: 33.32% Physical Therapy Assessment History: The following factors influence the patient's participation in the PT plan of care: Personal Factors: Age, Body Habitus Environmental Factors: Steps to enter home The following co-morbidities (from this admission or prior) influence the patient's participation in this plan of care: See H & P Number of History elements affecting this patient's PT plan of care: 1 to 2 Examination of Body Systems: The patient presents with: Musculoskeletal impairments: Strength (right UE). These impairments result in limitations of . These impairments result in restrictions of . Number of Body Systems elements affecting this patient's PT plan of care: 1 to 2. Clinical Presentation: The patient's clinical presentation for this PT evaluation is with stable and/or uncomplicated characteristics as evidenced by current PT documentation. Activity Tolerance Activity Tolerance: Endurance does not limit participation in activity Therapy Precautions Orthotic Devices: No Weight Bearing Status: WFL Balance Assessment Sitting Balance - Static: Independent Sitting Balance - Dynamic: Independent, with unilateral LUE support, with unilateral RUE support, with back unsupported Standing Balance - Static: Modified independent (adele ue support on bed) Dynamic Etching Processor - Standing Static: (no AD) Standing Balance - Dynamic: Independent, Supervision (no AD) Dynamic Etching Processor - Standing Dynamic: (no AD) Loss of Balance- Standing Dynamic: (no LOB during functional mobility) Bed Mobility Rolling: Independent Supine to Sit: Independent Sit to Supine: Independent Dynamic Etching Processor: (no rail; HOB 20 degs) Transfers Sit to Stand: Modified independent (adele ue for STS) Bed to Chair: Independent, Supervision Stand Pivot Transfers: Independent, Supervision Dynamic Etching Processor: (no device) Gait/Locomotion Gait Assistance: Supervision, Independent Assistive Device: (no AD) Distance: 250 Feet Pattern: Within Functional Limits, step through Weight Bearing Status: able to maintain Gait Loss(es) of Balance: (no LOB with quick 360 deg turns or during any functional ambulation this date.) Environment/Terrain: open/community environment, multiple distractions Additional Assessment Details Right facial droop with speech mildly slurred. See OT cierra for ue assessment Pt up in chair with present and MD in room , post PT session. Handoff provided to RN. Home Living Obtained Home Living and PLOF info from: Patient, Patient s family member Lives With: Spouse Type of Home: House Home Layout: One level (Laundry on main) Steps to enter home: Yes Rails to enter home: 2 rails Number of stairs to enter home: 3 Bathroom Shower/Tub: Tub/shower unit, Main level Bathroom Toilet: Standard, Main level Mobility Equipment: Wheeled walker, Cane, Wheelchair - manual Additional Objective Details - Home Living: Pt mainly sponge bathes Prior Level of Function Level of [place] - Transfers/Ambulation/Mobility: Independent with functional transfers, Independent with household ambulation, Independent with community ambulation (no AD) Level of [place] - ADLs: Independent Level of [place] - Homemaking: Independent Subjective Impression - Prior Function: No falls in last 6 months. Pt reports she typically walks 1 mile when weather appropriate Past Medical History: Diagnosis Date Hypertension Past Surgical History: Procedure Laterality Date CHOLECYSTECTOMY WISDOM TOOTH EXTRACTION Bilateral For complete objective data, detailed plan of care and patient education refer to: PT Evaluation flowsheet, PT Evaluation and Treatment flowsheet, PT Treatment flowsheet, patient Plan of Care, Plan of Care progress note, and Patient Education. This note stands as the current Discharge Summary upon patient discharge from the hospital or completion of Physical Therapy Plan. [facility] 11-02-2024 Consult note Associated Order (s): IP CONSULT TO CARE MANAGEMENT Care Management Consult Note Date: 11/02/2024 Time: 10:10 AM Patient Name: Anila Pulliam Date of : 1950 Reason for Consult: Discharge Plan: D/C Disposition: Home Plan A: Home Discharging Transportation Plan: Discharge Plan Status: In to see patient, her spouse was also at bedside. Patient and spouse were educated on the social service role. Patient is from home and resides with her spouse. Spouse reports strong support from other family members as well. Patient does not drive. Patient reports transportation is not an issue. Patient reports the home is one-floor with three steps to enter. Patient reports she is able to obtain prescriptions. Patient follows with Nahomy Frank PA-C, for primary care. Patient is [employer] and self pay. Patient and spouse are agreeable to talk to insurance and financial services agent. Patient/spouse denied need for any services or assistance at discharge. Secure chat sent to the financial advocates. [id number] Secure chat received from Dr. Obrien. Dr. Obrien out like outpatient therapy order placed should patient decide she would like therapy. Order placed. Assessment and Background Information: Living Arrangements: Spouse/significant other Caregiver Identified: Yes Caregiver's Name: Spouse, family, community Support Systems: [employer]/[place] community, Spouse/significant other, Family members Assistance Needed: Independent prior Type of Residence: Private residence Prior to Admission Home Care Services: No Patient expects to be discharged to:: Home Does the patient need discharge transport arranged?: No Current Home Equipment: None Holistic Assessment Medication adherence problem:: No History of falls in last 6 months:: No Family aware of the patient's advance care planning wishes:: Yes Do you have any cultural/spiritual connections or beliefs that would impact how we deliver your care?: No Chronic pain:: No [facility] 11-02-2024 Consult note Formatting of th is note is different from the original. Speech Pathology General Cognition / Communication Eval Note Per chart, Anila Pulliam is a 74 y.o. female patient of Nahomy Frank PA-C with history of HTN presented to [facility] on 11/01/2024 with rt facial droop and RUE weakness. Patient participated in an informal speech, language, and cognition evaluation in the setting of hospitalization s/p suspected CVA. Patient and spouse denied noting acute cognitive deficits. Patient reported ongoing slurred speech. Motor speech was perceived as mildly dysarthric as characterized by imprecise articulation, low vocal intensity, and difficulty with multisyllabic and connected speech. PLASTERING SUPERVISOR will continue to follow. Auditory Comprehension Severity rating: [facility] Expressive Language Severity rating: WF Motor Speech Severity ratin-90% (Mild) Cognition Severity rating: baseline per pt/CG report Factors for returning to Prior Level of Function: Factors for Returning to Prior Level of Function Body Structure and Function: Neurologic impairment Explain Impairments: s/p CVA Activities and Participation: ADL/IADL limitation, Communication limitation Explain Limitations: ride sided weakness s/p CVA, mild dysarthria Environmental Factors: Home situation, Family/caregiver support Explain Environmental Factors: presents from home, family at bedside Personal Factors: Awareness of own capacity and performance Explain Personal Factors: voicing insight Skilled therapy needs: Skilled Therapy Needs: Are ST Skilled Therapy Services Needed After Discharge: Yes Functional Limitations: communication deficits Intensity of ST Skilled Therapy: 2-3 days per week (vs none, pending acute care progress) Anticipated Duration of ST Skilled Therapy: Duration 7 - 10 days Prior function: Prior Function Reason for Referral: Stroke / neuro Primary Language: Tajik Living Situation: With others, Independent with ADL's Prior Speech Deficit: No known previous deficits, Per chart review, Per patient report Prior Language Deficit: No known previous deficits, Per chart review, Per patient report Prior Cognitive Deficit: Memory changes, Per patient report, Per caregiver report Other pertinent diagnoses affecting cog/comm/voice: CVA Baseline Assessment Subjective Impression: Alert, Cooperative, Pleasant Mood Respiratory Status: Room air Oral motor: Oral/Motor Oral Motor Impression-Severity Scale: Minimal, Mild Labial ROM: Reduced right Labial Symmetry at Rest: Abnormal symmetry right Lingual ROM: Within Functional Limits Lingual Symmetry: Within Functional Limits Mandible: Within Functional Limits Facial ROM: Reduced right Facial Symmetry at Rest: Right lower paresis (subjectively improved in comparison to initial evaluation on 11/01) Auditory Comprehension: Auditory Comp Impression-Severity Scale: [facility] Visual Perception: Visual Perception: No acute visual changes Reading Comprehension: Reading Comp Impression-Severity: Requires further assessment Expressive Language: Expressive Language Impression-Severity: WF Primary Mode of Expression: Verbal, Complex conversation level Motor Speech: Motor Speech Impression Severity: 75-90% (Mild) Speech Intelligibility: Exceptions to WFL Conversation: 75-90% (Mild) Dysarthria Characteristics: Imprecise articulation, Low intensity, Difficulty with multisyllabic words, Difficulty with connected speech Recommended Motor speech strategies: Increase volume, Slow speech rate, Over-articulation Written Expression: Written Expression Impression-Severity: Requires further assessment Cognitive-Communication: Speech Cognition Impression-Severity: baseline per pt/CG report Orientation Level: Oriented x4 Memory: Exceptions to WFL Delayed recall: No Impairment Working memory: No Impairment Long-term memory: No Impairment Verbal Problem Solving: Within Functional Limits Behavioral Observations: good awareness of safety precautions Insight: Good awareness of impairment, Good insight into impact of injury/deficits Task Initiation: WFL Flexibility of Thought: Within functional limits Pragmatics: No overt deficits Patient O-Log (Orientation Log) Score - Cut off score 25 or better on two separate administrations: Orientation-Log Orientation-log: Yes City: [address]: 3 Name of Hospital: 3 Month: 3 Date: 3 Year: 3 Day of Week: 3 Clock Time: 3 Etiology / Event: 3 Pathology Deficits: 3 Orientation Log Total Score (out of 30): 30 Patient Cog-Log (Cognitive Log) Score - Cut off score 25 or better: Cognitive-Log Cognitive-log: No Variance - Cognitive Log: Patient high functioning - testing not indicated PLASTERING SUPERVISOR Caregiver Readiness: PLASTERING SUPERVISOR Caregiver Readiness ST Rationale: Working toward discharge home, Stroke Caregiver Readiness ST Training Progress: Initiated & ongoing - follow-up required ST Identified Caregiver: Spouse, Other (comment) (Patient) Caregiver Present for ST Session: Yes ST Training Provided For: Communication - follow-up required, Safe swallow strategies - follow-up required, Exercise program - follow-up required, Stroke - follow-up required Caregiver response to training: Verbalizes understanding Speech Plan: Further acute Speech Therapy services indicated: Yes Patient Goal for Treatment: To go home, Improve communication Rehab Potential: Good, for established goals Past Medical History: Diagnosis Date Hypertension Past Surgical History: Procedure Laterality Date CHOLECYSTECTOMY WISDOM TOOTH EXTRACTION Bilateral For complete objective data, detailed plan of care, and education refer to: Speech Comm/Cog Eval flow sheet, as well as patient Plan of Care and Education documentation. This note stands as the current Discharge Summary upon patient discharge from the hospital or completion of Speech Pathology Plan of Care [facility] 11-02-2024 Plan of care note Problem: Actual or potential alteration in health Goal: Absence of healthcare acquired conditions Outcome: Partially Met Goal: Knowledge of Interdisciplinary Plan of Care Outcome: Partially Met Goal: Knowledge of Enviroment Outcome: Partially Met Problem: Stroke - Ischemic - Required Education Goal: Knowledge of care transition plan Outcome: Partially Met Problem: Activity Intolerance Goal: Improved activity tolerance Outcome: Partially Met Goal: Able to participate in acute rehabilitation Outcome: Partially Met Goal: Knowledge of prescribed activities Outcome: Partially Met Problem: Aspiration, Risk of Goal: Absence of aspiration Outcome: Partially Met Problem: Bleeding, Risk of Goal: Absence of impaired coagulation signs and symptoms Outcome: Partially Met Problem: Falls, Risk of Goal: Absence of falls Outcome: Partially Met [facility] 11-02-2024 Miscellaneous Notes Problem: Actual or potential alteration in health Goal: Absence of healthcare acquired conditions Outcome: Partially Met Goal: Knowledge of Interdisciplinary Plan of Care Outcome: Partially Met Goal: Knowledge of Enviroment Outcome: Partially Met Problem: Stroke - Ischemic - Required Education Goal: Knowledge of care transition plan Outcome: Partially Met Problem: Activity Intolerance Goal: Improved activity tolerance Outcome: Partially Met Goal: Able to participate in acute rehabilitation Outcome: Partially Met Goal: Knowledge of prescribed activities Outcome: Partially Met Problem: Aspiration, Risk of Goal: Absence of aspiration Outcome: Partially Met Problem: Bleeding, Risk of Goal: Absence of impaired coagulation signs and symptoms Outcome: Partially Met Problem: Falls, Risk of Goal: Absence of falls Outcome: Partially Met Problem: Actual or potential alteration in health Goal: Absence of healthcare acquired conditions Outcome: Partially Met Goal: Knowledge of Interdisciplinary Plan of Care Outcome: Partially Met Goal: Knowledge of Enviroment Outcome: Partially Met Problem: Stroke - Ischemic - Required Education Goal: Knowledge of care transition plan Outcome: Partially Met Problem: Activity Intolerance Goal: Improved activity tolerance Outcome: Partially Met Goal: Able to participate in acute rehabilitation Outcome: Partially Met Goal: Knowledge of prescribed activities Outcome: Partially Met Problem: Aspiration, Risk of Goal: Absence of aspiration Outcome: Partially Met Problem: Bleeding, Risk of Goal: Absence of impaired coagulation signs and symptoms Outcome: Partially Met Problem: Bowel Function - Altered Goal: Bowel elimination within specified parameters Outcome: Partially Met Goal: Absence of fecal incontinence Outcome: Partially Met Goal: Normal bowel habits Outcome: Partially Met Problem: Cognitive-Perceptual Pattern - Impaired Goal: Able to achieve maximum level of cognitive ability Outcome: Partially Met Goal: Able to use adaptive-compensatory strategies Outcome: Partially Met Goal: Improved neuropsychological functioning Outcome: Partially Met Problem: Falls, Risk of Goal: Absence of falls Outcome: Partially Met Problem: Fluid Volume Deficit Goal: Absence of fluid volume deficit signs and symptoms Outcome: Partially Met Goal: Balanced intake and output Outcome: Partially Met Goal: Urine output within specified parameters Outcome: Partially Met Problem: Mobility - Impaired Goal: Able to achieve maximum mobility level Outcome: Partially Met Goal: Able to ambulate within specified parameters Outcome: Partially Met Goal: Able to transfer independently Outcome: Partially Met Goal: Able to use ambulatory assistive device appropriately Outcome: Partially Met Problem: Mood - Altered Goal: Mood stable Outcome: Partially Met Goal: Alleviation of anxiety Outcome: Partially Met Goal: Decrease in depressive symptoms Outcome: Partially Met Problem: Nutrition Deficit, Risk of Goal: Nutrition intake to meet estimated needs Outcome: Partially Met Goal: Body weight maintained Outcome: Partially Met Problem: Pain Goal: Reduced pain sensation Outcome: Partially Met Goal: Control of acute pain to acceptable level Outcome: Partially Met Problem: Pressure Injury, Risk of Goal: Absence of pressure injury Outcome: Partially Met Problem: Self-care Deficit Goal: Able to perform ADL Outcome: Partially Met Goal: Able to communicate needs Outcome: Partially Met Goal: Able to use self-care assistive device appropriately Outcome: Partially Met Problem: Serum Glucose Level - Abnormal Goal: Glucose level within specified parameters Outcome: Partially Met Problem: Tissue Perfusion, Cerebral - Altered Goal: Absence of continued neurologic deterioration signs and symptoms Outcome: Partially Met Problem: Urinary Elimination - Impaired Goal: Urinary elimination within specified parameters Outcome: Partially Met Goal: Absence of postvoid residual Outcome: Partially Met Goal: Absence of urinary incontinence Outcome: Partially Met Goal: Decrease in number of episodes of urinary incontinence Outcome: Partially Met Problem: Venous Thromboembolism, Risk of Goal: Absence of venous thromboembolism Outcome: Partially Met Goal: Knowledge of venous thromboembolism prevention Outcome: Partially Met Problem: Verbal Communication - Impaired Goal: Effective communication Outcome: Partially Met Goal: Increased social interaction Outcome: Partially Met Goal: Utilization of alternative communication techniques Outcome: Partially Met Problem: Transition Readiness Goal: Able to safely transition to next level of care Outcome: Partially Met Goal: Knowledge of care transition plan Outcome: Partially Met Goal: Knowledge of medication management Outcome: Partially Met Goal: Knowledge of need for follow-up care Outcome: Partially Met Goal: Knowledge of personal stroke risk factors Outcome: Partially Met Goal: Knowledge of stroke warning signs Outcome: Partially Met Goal: Participation in care planning Outcome: Partially Met Problem: Actual or potential alteration in health Goal: Absence of healthcare acquired conditions Outcome: Partially Met Goal: Knowledge of Interdisciplinary Plan of Care Outcome: Partially Met Goal: Knowledge of Enviroment Outcome: Partially Met Problem: Stroke - Ischemic - Required Education Goal: Knowledge of care transition plan Outcome: Partially Met Problem: Activity Intolerance Goal: Improved activity tolerance Outcome: Partially Met Goal: Able to participate in acute rehabilitation Outcome: Partially Met Goal: Knowledge of prescribed activities Outcome: Partially Met EKG: Obtained at 8:34 AM and read by me at the same time Rhythm: Sinus Rate: 80 [place] within normal limits Interval [place] QRS and QTc are grossly within normal limits. Patient does have some nonspecific ST and T wave abnormalities with mainly focused on 2 3 aVF in addition to V5 and V6 There is no ST elevations in contiguous leads with reciprocal depression to suggest coronary infarct otherwise. This patient was signed out to me at 7 AM by my colleague I assumed care for this patient at the beginning of my shift. Patient had arrived to the ED by EMS after noticing upon waking up this morning at 4 AM, went to bed at 8 PM the night prior, to have right-sided facial droop in addition to having right arm weakness mainly having some issues with her head inspector and center marker. Patient has a hard time with making a head inspector and center marker having it 4 out of 5 strength as well as mainly having issues with extending her fingers on that side. Patient does not have any drift in the upper and lower extremities currently. Patient was called as a level 1, more appropriate likely level 2 from his presentation, did not have any large vessel occlusion on the CT angio, did have a hypodensity does noted within the left basal ganglia concerning for an a determined stroke potentially. Neurology stroke consulted and the recommendation was to medically optimize this patient and no acute intervention surgically or endovascularly at this point. Dual antiplatelet agents. Permissive hypertension was recommended for this patient with appropriate parameters set forth in their note. Patient was gently hydrated with IV infusion normal saline 125 cc/h. Patient's as well as patient were notified regarding the results of imaging laboratory workup as well as disposition and further expectations while admitted. Patient evaluated via telehealth platform ([facility]) Mr. Pulliam is a 74 years old lady with past medical history of hypertension who presented to [facility] emergency department with symptoms of right-sided weakness that she woke up with at 4 AM on 11/01/2024. States that she went to sleep at around 8 PM on 10/31/2024. Reports taking no other medications other than antihypertensives at home. Blood pressure 207/84 mmHg BG not available in chart NIH stroke scale of 5 (1B-1, 4-2, 9-1, 10-1) (noted decreased right hand head inspector and center marker strength) Noncontrast CT head was negative for an acute intracranial pathology. Symptoms concerning for left cerebral infarct/ischemia versus TIA - Patient is not a candidate for IV thrombolytic due to last known well. - Recommend CTA head and neck stat. Patient may require transfer to higher level of care if large vessel occlusion noted. - Also recommend Plavix 300 mg and aspirin 325 mg p.o. stat. - Admit for monitoring and stroke workup including but not limited to MRI brain, TTE, fasting lipid panel and HbA1c. - Permissive hypertension (blood pressure less than 220/120 mmHg for 48 hours and then gradually normalize over 5 to 7 days), gentle IV hydration and head of bed flat. Recommendations relayed to primary team and patient. Update post CTA: CTA head and neck reviewed and no large vessel occlusion of hemodynamically significant stenoses noted (official read pending). Recommendations: No change to above mentioned plan. (Computer voice recognition was used in this documentation, there is a possibility of [id number] errors inherent to this technology that may be missed during proofreading.) Srinivas Delacruz MD Vascular Neurology documented in this encounter [facility] 11-02-2024 Plan of care note Problem: Actual or potential alteration in health Goal: Absence of healthcare acquired conditions Outcome: Partially Met Goal: Knowledge of Interdisciplinary Plan of Care Outcome: Partially Met Goal: Knowledge of Enviroment Outcome: Partially Met Problem: Stroke - Ischemic - Required Education Goal: Knowledge of care transition plan Outcome: Partially Met Problem: Activity Intolerance Goal: Improved activity tolerance Outcome: Partially Met Goal: Able to participate in acute rehabilitation Outcome: Partially Met Goal: Knowledge of prescribed activities Outcome: Partially Met Problem: Aspiration, Risk of Goal: Absence of aspiration Outcome: Partially Met Problem: Bleeding, Risk of Goal: Absence of impaired coagulation signs and symptoms Outcome: Partially Met Problem: Bowel Function - Altered Goal: Bowel elimination within specified parameters Outcome: Partially Met Goal: Absence of fecal incontinence Outcome: Partially Met Goal: Normal bowel habits Outcome: Partially Met Problem: Cognitive-Perceptual Pattern - Impaired Goal: Able to achieve maximum level of cognitive ability Outcome: Partially Met Goal: Able to use adaptive-compensatory strategies Outcome: Partially Met Goal: Improved neuropsychological functioning Outcome: Partially Met Problem: Falls, Risk of Goal: Absence of falls Outcome: Partially Met Problem: Fluid Volume Deficit Goal: Absence of fluid volume deficit signs and symptoms Outcome: Partially Met Goal: Balanced intake and output Outcome: Partially Met Goal: Urine output within specified parameters Outcome: Partially Met Problem: Mobility - Impaired Goal: Able to achieve maximum mobility level Outcome: Partially Met Goal: Able to ambulate within specified parameters Outcome: Partially Met Goal: Able to transfer independently Outcome: Partially Met Goal: Able to use ambulatory assistive device appropriately Outcome: Partially Met Problem: Mood - Altered Goal: Mood stable Outcome: Partially Met Goal: Alleviation of anxiety Outcome: Partially Met Goal: Decrease in depressive symptoms Outcome: Partially Met Problem: Nutrition Deficit, Risk of Goal: Nutrition intake to meet estimated needs Outcome: Partially Met Goal: Body weight maintained Outcome: Partially Met Problem: Pain Goal: Reduced pain sensation Outcome: Partially Met Goal: Control of acute pain to acceptable level Outcome: Partially Met Problem: Pressure Injury, Risk of Goal: Absence of pressure injury Outcome: Partially Met Problem: Self-care Deficit Goal: Able to perform ADL Outcome: Partially Met Goal: Able to communicate needs Outcome: Partially Met Goal: Able to use self-care assistive device appropriately Outcome: Partially Met Problem: Serum Glucose Level - Abnormal Goal: Glucose level within specified parameters Outcome: Partially Met Problem: Tissue Perfusion, Cerebral - Altered Goal: Absence of continued neurologic deterioration signs and symptoms Outcome: Partially Met Problem: Urinary Elimination - Impaired Goal: Urinary elimination within specified parameters Outcome: Partially Met Goal: Absence of postvoid residual Outcome: Partially Met Goal: Absence of urinary incontinence Outcome: Partially Met Goal: Decrease in number of episodes of urinary incontinence Outcome: Partially Met Problem: Venous Thromboembolism, Risk of Goal: Absence of venous thromboembolism Outcome: Partially Met Goal: Knowledge of venous thromboembolism prevention Outcome: Partially Met Problem: Verbal Communication - Impaired Goal: Effective communication Outcome: Partially Met Goal: Increased social interaction Outcome: Partially Met Goal: Utilization of alternative communication techniques Outcome: Partially Met Problem: Transition Readiness Goal: Able to safely transition to next level of care Outcome: Partially Met Goal: Knowledge of care transition plan Outcome: Partially Met Goal: Knowledge of medication management Outcome: Partially Met Goal: Knowledge of need for follow-up care Outcome: Partially Met Goal: Knowledge of personal stroke risk factors Outcome: Partially Met Goal: Knowledge of stroke warning signs Outcome: Partially Met Goal: Participation in care planning Outcome: Partially Met [facility] 11-01-2024 Consult note Associated Order (s): IP CONSULT TO NEUROLOGY Neurology Inpatient Consult [facility] 11/01/2024 Patient: Anila Pulliam Date of : 1950 (74 y.o.) Referring Provider: Refer to consult order in electronic medical record PCP: Nahomy Frank PA-C ASSESSMENT: 74 y.o. female presented to [facility] on 11/01/2024 with history of hypertension who presents for evaluation of right-upper extremity weakness, right facial droop, and slurred speech that she woke up with at 4 AM on 11/01/2024. On arrival, blood pressures were 207/84. NIHSS stroke scale initially Initial NIH stroke scale of 5, subsequently improved to 4 at the time of my evaluation (2 for right facial droop, 1 for right upper extremity, 1 for slight slurred speech). There is also more severe left hand head inspector and center marker strength weakness, that is typically not calculated on a NIH stroke scale. Noncontrast CT revealed a low-density focus in left basal ganglia, however no other acute changes. CT angiogram did not reveal any large vessel occlusions. Patient was not deemed to be a candidate for IV tPA and was loaded with aspirin and Plavix in the ER. Neurology was consulted for further recommendations. Of note, the patient is a [employer], currently without insurance and planning to pay [id number]. While CT head did reveal this low-density focus that could be a potential seizure focus, considering that she presented within a few hours of onset of symptoms, it would be unlikely for the lacunar stroke to show this extent of of encephalomalacia. Unclear if there were any clear cortical signs, although initial NIHSS did assign 1 point to language. No gaze deviation, hemianopia or expressive difficulty was described by patient. While in ideal circumstances, an MRI can clarify etiology of symptoms, overall symptoms appear to be linked to a lacunar stroke. She is currently monitored on telemetry, and unless atrial fibrillation is seen, MRI or echo is unlikely to microsoft exchange architect. Hence will recommend continuing DAPT for 21 days followed by aspirin monotherapy. The patient can follow-up outpatient with results of an outpatient echocardiogram and repeat CT in 3 weeks. If atrial fibrillation is noted however, that plan might change. PLAN: Likely left hemispheric lacunar stroke (Ischemic Infarct) - Location: Unclear - Etiology: Lacunar/small vessel Testing: No further neurologic testing inpatient, apart from lipid panel. Repeat CT head and echocardiogram as an outpatient Labs: HbA1c 5.6, lipid panel pending Cardiac Rhythm: NO Afib noted to date Continue the following medications for stroke prevention: Anti-thrombotic: Plavix and ASA 81 mg for 21 days, then d/c Plavix .continue statin therapy Blood pressure goal - Permissive hypertension (blood pressure less than 220/120 mmHg for 48 hours and then gradually normalize over 5 to 7 days), gentle IV hydration and head of bed flat. LDL goal < 70, Hemoglobin A1c goal 6.5 or lower, Educated on the importance of adequate sleep, exercise (30 minutes brisk exercise 5 days per week), hydration (at least 64 oz of water daily), and mediterranean style diet were discussed. Extensive stroke prevention teaching provided today. All questions and concerns were addressed. Mulu Caro MD Staff Neurologist DIAGNOSTIC TESTING SUMMARY: Pending Lab and Radiology Results Order Current Status Hemoglobin A1c In process Resulted Testing: (MRI/CT/XR, EEG, EMG, CSF, Cardiac, Labs) CT head\11/01/2023 1. Low-density focus in the left basal ganglia may correlate with age-indeterminate lacunar infarct or prominent perivascular space. MRI could be considered if clinical symptoms warrant. 2. No acute hemorrhage or midline shift. CT angiogram of the head and neck 11/01/2023 1. No proximal intracranial arterial occlusion or high-grade stenosis. No intracranial aneurysm or vascular malformation. 2. No significant carotid or vertebral artery stenosis in the neck. No acute dissection. SUBJECTIVE: Chief Complaint/Reason for Consult: Acute ischemic stroke Informant(s): Patient, , Care Team/Chart History of Present Illness: Anila Pulliam is a 74 y.o. female with history of hypertension who presents for evaluation of right-upper extremity weakness, right facial droop, and slurred speech that she woke up with at 4 AM on 11/01/2024. On arrival, blood pressures were 207/84. NIHSS stroke scale initially Initial NIH stroke scale of 5, subsequently improved to 4 at the time of my evaluation (2 for right facial droop, 1 for right upper extremity, 1 for slight slurred speech). There is also more severe left hand head inspector and center marker strength weakness, that is typically not calculated on a NIH stroke scale. Noncontrast CT revealed a low-density focus in left basal ganglia, however no other acute changes. CT angiogram did not reveal any large vessel occlusions. Patient was not deemed to be a candidate for IV tPA and was loaded with aspirin and Plavix in the ER. Neurology was consulted for further recommendations. No history of previous strokes. Apart from hypertension denies any other medical issues. Review of Systems: Neurological ROS: negative for - behavioral changes, bowel and bladder control changes, confusion, gait disturbance, headaches, impaired coordination/balance, memory loss, seizures, tremors, or visual changes History: Past Medical History: Diagnosis Date Hypertension Past Surgical History: Procedure Laterality Date CHOLECYSTECTOMY WISDOM TOOTH EXTRACTION Bilateral Social History Socioeconomic History Marital status: Tobacco Use Smoking status: Never Passive exposure: Never Smokeless tobacco: Never Substance and Sexual Activity Alcohol use: Not Currently Drug use: Not Currently Social Drivers of Health Food Insecurity: No Food Insecurity (11/01/2024) Hunger Vital Sign Worried About Running Out of Food in the Last Year: Never true Ran Out of Food in the Last Year: Never true Transportation Needs: No Transportation Needs (11/01/2024) PRAPARE - Transportation Lack of Transportation (Medical): No Lack of Transportation (Non-Medical): No Housing Stability: Low Risk (11/01/2024) Housing Stability Vital Sign Unable to Pay for Housing in the Last Year: No Number of Times Moved in the Last Year: 0 Homeless in the Last Year: No Family History Problem Relation Age of Onset Hypertension Mother Diabetes Father Allergies: Patient has no known allergies. HOME Medications: Prior to Admission medications Medication Sig Start Date End Date Taking? Authorizing Provider latanoprost (XALATAN) 0.005 % ophthalmic solution Administer 1 (one) drop to both eyes at bedtime . Yes Joelle Mascorro MD losartan (COZAAR) 50 MG tablet Take 1 (one) tablet (50 mg total) by mouth daily . 10/31/24 Yes Joelle Mascorro MD multivitamin per tablet Take 1 (one) tablet by mouth daily . Yes Joelle Mascorro MD verapamil sr (CALAN-SR) 120 MG er tablet Take 1 (one) tablet (120 mg total) by mouth daily . 10/31/24 Yes Joelle Mascorro MD HOSPITAL Infusions: HOSPITAL Scheduled Medications: aspirin 325 mg Oral Daily Or aspirin 300 mg Rectal Daily atorvastatin 40 mg Oral Nightly clopidogreL 300 mg Oral Once enoxaparin (LOVENOX) injection 40 mg Subcutaneous Nightly latanoprost 1 drop Both Eyes at bedtime [START ON 11/02/2024] multivitamin 1 tablet Oral Daily potassium chloride SA 40 mEq Oral Once sodium chloride (PF) 5 mL Intravenous Q8H [facility] PRN Medications: acetaminophen, aluminum-magnesium hydroxide-simethicone, bisacodyL, labetalol OR hydrALAZINE, magnesium hydroxide, ondansetron, ondansetron, perflutren lipid microspheres, Saline lock IV AND sodium chloride (PF) AND sodium chloride (PF) AND sodium chloride 0.9 %, traZODone OBJECTIVE: Physical Examination: BP (!) 180/85 Pulse 87 Temp 99.2 F (37.3 C) (Oral) Resp 18 Ht 5' 7 Wt 93.1 kg (205 lb 4 oz) SpO2 96% BMI 32.15 kg/m 11/01/24 1840 NIH Stroke Scale Level of Consciousness (1a.) 0 LOC Questions (1b.) 0 LOC Commands (1c.) 0 Best Gaze (2.) 0 Visual (3.) 0 Facial Palsy (4.) 2 Motor Arm, Left (5a.) 0 Motor Arm, Right (5b.) 1 Motor Leg, Left (6a.) 0 Motor Leg, Right (6b.) 0 Limb Ataxia (7.) 0 Sensory (8.) 0 Best Language (9.) 0 Dysarthria (10.) 1 Extinction and Inattention (11.) (Formerly Neglect) 0 Total 4 Patient is awake and alert. Normal development and fairly groomed. Not in distress or pain. Vital signs were reviewed. Neck is supple. No meningeal sign. No skin rash. Patient is oriented to month, season, year, place, and person. Language is intact. Able to name and repeat. Speech is fluent, although very slightly slurred due to facial droop, and is spontaneous. General fund of knowledge is intact. Pupils are 4 mm equally reactive to light. No ptosis, nystagmus, or visual field cuts. Extraocular muscles are intact. Face is asymmetric, with UMN type right facial droop. And facial sensation is intact. Hearing is grossly intact. Palate moves symmetrical upward. Positive shoulder shrug. Tongue is midline. Motor: Normal bulk and tone. No pronator drift. SA EE EF WE WF DI HF KE KF DF PF Right 4+ 5- 5 5- 5 4 5 5 5 5 5 Left 5 5 5 5 5 5 5 5 5 5 5 Reflexes: Right Left Comments Biceps 2 2 Triceps 2 2 Brachioradialis 2 2 Patellar 2 2 Achilles 2 2 Coordination: [id number] intact bilaterally. Slight difficulty with the right upper extremity due to hand weakness Sensation: Comments Light touch Intact throughout Gait: deferred Mulu Caro MD 11/01/2024 Timed code: 81 minutes Includes preparation to see the patient (reviewing previous history, exam, test, procedure, and medications); Obtaining history from the patient/family/caregivers; performing evaluation and examination; ordering medications, tests, or procedures; referring and communicating with other healthcare professionals; counseling and education of the patient/family/caregiver; independently interpreting results (Tests, labs, imaging) and communicating results to the patient/family/caregiver; coordination of care; documenting clinical information in the electronic and other health records. [facility] 11-01-2024 Plan of care note Problem: Actual or potential alteration in health Goal: Absence of healthcare acquired conditions Outcome: Partially Met Goal: Knowledge of Interdisciplinary Plan of Care Outcome: Partially Met Goal: Knowledge of Enviroment Outcome: Partially Met Problem: Stroke - Ischemic - Required Education Goal: Knowledge of care transition plan Outcome: Partially Met Problem: Activity Intolerance Goal: Improved activity tolerance Outcome: Partially Met Goal: Able to participate in acute rehabilitation Outcome: Partially Met Goal: Knowledge of prescribed activities Outcome: Partially Met [facility] 11-01-2024 Emergency department Note Bed: 33 Expected date: Expected time: Means of arrival: Comments: Rm 05 [facility] 11-01-2024 Emergency department Note Bed: 33 Expected date: Expected time: Means of arrival: Comments: Rm [address], xray bedside Dr Delacruz VO for CTA, Dr Rebolledo. Patient to CT with this RN. Dr Delacruz reports CT findings of old infarct apparent but no acute infarct found at this time. Patient does not qualify for TPA/TNK due to unsure LKW as patient was asleep. Plan for CTA. 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 Returned from [facility] ED note NAME: Anila Pulliam 74 y.o. CSN: [id number] PCP: Nahomy Frank PA-C History: Chief Complaint: Stroke Alert HPI: Patient is a 74-year-old female history of hypertension brought to the ED as a level 1 stroke alert with a LAMS score of 3 and a last known well of 0500 today 11/01/2024. Patient said she was up this morning family noted the right facial droop, patient denies previous history of CAD CA PE pneumothorax denies history of CVA, upon arrival to the ED she is noted to have significant right facial droop right upper and lower extremity weakness her initial GCS is 15 initial NIHSS is 6 stroke alert activated prior to arrival to the ED , patient immediately taken to CT scan for imaging and virtual neurology will be consulted. Patient is not on anticoagulant and initial blood glucose is 131. PMHx: Past Medical History: Diagnosis Date Hypertension PMSx: Past Surgical History: Procedure Laterality Date CHOLECYSTECTOMY WISDOM TOOTH EXTRACTION Bilateral FAM. Hx: Family History Problem Relation Age of Onset Hypertension Mother Diabetes Father SOC. Hx: Social History Socioeconomic History Marital status: Tobacco Use Smoking status: Never Passive exposure: Never Smokeless tobacco: Never Substance and Sexual Activity Alcohol use: Not Currently Drug use: Not Currently Social Drivers of Health Food Insecurity: No Food Insecurity (11/01/2024) Hunger Vital Sign Worried About Running Out of Food in the Last Year: Never true Ran Out of Food in the Last Year: Never true Transportation Needs: No Transportation Needs (11/01/2024) PRAPARE - Transportation Lack of Transportation (Medical): No Lack of Transportation (Non-Medical): No Housing Stability: Low Risk (11/01/2024) Housing Stability Vital Sign Unable to Pay for Housing in the Last Year: No Number of Times Moved in the Last Year: 0 Homeless in the Last Year: No MEDs: Previous Medications Medication Sig latanoprost (XALATAN) 0.005 % ophthalmic solution Administer 1 (one) drop to both eyes at bedtime . losartan (COZAAR) 50 MG tablet Take 1 (one) tablet (50 mg total) by mouth daily . multivitamin per tablet Take 1 (one) tablet by mouth daily . verapamil sr (CALAN-SR) 120 MG er tablet Take 1 (one) tablet (120 mg total) by mouth daily . ALL: No Known Allergies ROS: Review of Systems Positives and pertinent negatives as per HPI. All other systems were reviewed and are negative. Physical Exam: Patient Vitals for the past 24 hrs: BP Temp Temp src Pulse Resp SpO2 Height Weight 11/02/24 0324 (!) 180/99 98.3 F (36.8 C) Oral 80 18 92 % -- -- 11/01/24 2311 (!) 168/79 98.6 F (37 C) Oral 83 14 93 % -- -- 11/01/242024 (!) 185/78 98.9 F (37.2 C) Oral 72 16 95 % -- -- 11/01/241999 -- -- -- -- 16 -- -- -- 11/01/24 1810 (!) 180/85 99.2 F (37.3 C) Oral 87 18 96 % -- -- 11/01/24 1810 -- -- -- -- -- -- 5' 7 93.1 kg (205 lb 4 oz) 11/01/24 1700 (!) 167/70 -- -- -- -- -- -- -- 11/01/24 1555 (!) 181/81 98.8 F (37.1 C) -- 82 18 94 % -- -- 11/01/24 1415 (!) 172/81 -- -- 68 (!) 19 93 % -- -- 11/01/24 1400 (!) 189/86 -- -- 70 18 93 % -- -- 11/01/24 1315 (!) 163/91 -- -- 70 16 94 % -- -- 11/01/24 1300 (!) 165/80 -- -- 68 16 95 % -- -- 11/01/24 1145 (!) 164/79 -- -- 77 17 95 % -- -- 11/01/24 1115 (!) 164/84 -- -- 74 (!) 19 95 % -- -- 11/01/24 1100 (!) 162/90 -- -- 79 (!) 21 95 % -- -- 11/01/24 1015 (!) 190/89 -- -- 75 (!) 19 94 % -- -- 11/01/24 0930 (!) 205/98 -- -- 85 (!) 23 96 % -- -- 11/01/24 0845 (!) 195/81 -- -- 73 (!) 20 94 % -- -- 11/01/24 0830 (!) 208/106 -- -- 84 (!) 20 96 % -- -- 11/01/24 0800 (!) 151/118 -- -- 77 (!) 20 97 % -- -- 11/01/24 0715 (!) 172/80 -- -- 76 (!) 20 95 % -- -- Physical Exam Vitals and nursing note reviewed. Constitutional: General: She is not in acute distress. Appearance: Normal appearance. HENT: Head: Normocephalic and atraumatic. Eyes: Pupils: Pupils are equal, round, and reactive to light. Cardiovascular: Rate and Rhythm: Normal rate. Musculoskeletal: General: Normal range of motion. Cervical back: Normal range of motion and neck supple. Pulmonary: Effort: Pulmonary effort is normal. No respiratory distress. Breath sounds: Normal breath sounds. No stridor. Abdominal: General: Abdomen is flat. Bowel sounds are normal. Palpations: Abdomen is soft. Tenderness: There is no abdominal tenderness. There is no guarding. Skin: General: Skin is warm. Neurological: Mental Status: She is alert and oriented to person, place, and time. Comments: Right facial droop, right upper and lower extremity weakness. Slurring of her speech. Psychiatric: Mood and Affect: Mood normal. NIH Scale: LOC: 0 - alert LOC Questions: 0 - answers both correctly LOC Commands: 0 - performs both correctly Best gaze: 1 - partial gaze palsy Vision: 0 - no visual loss Facial Palsy: 2 - partial Left arm: 0 - no drift Right arm; 0 - no drift Left le - no drift Right le - no drift Limb ataxia: 0 - absent Sensation: 1 - mild to moderate loss Best language: 1 - mild to moderate aphasia Dysarthria: 1 - mild to moderate dysarthria Extinction and inattention: 0 - no neglect Stroke Scale: 6 Laboratory & Radiological Imaging (if done): Labs Reviewed COMPREHENSIVE METABOLIC PANEL - Abnormal; Notable for the following components: Result Value Glucose 121 (*) BUN/Creatinine Ratio 23.0 (*) All other components within normal limits Narrative: [facility] has implemented the eGFR calculation approach that does not have a coefficient for race that conforms to the NKF-ASN Task Force Recommendations. LIPID PANEL - Abnormal; Notable for the following components: Cholesterol 204 (*) All other components within normal limits POC GLUCOSE - RALS - Abnormal; Notable for the following components: Glucose 140 (*) All other components within normal limits HEMOGLOBIN A1C - Normal CBC AND DIFFERENTIAL Narrative: The following orders were created for panel order CBC w/ Diff. Procedure Abnormality Status --------- ------ CBC Auto Differential[[id number]] Final result Please view results for these tests on the individual orders. TROPONIN POC GLUCOSE POC GLUCOSE POC GLUCOSE POC GLUCOSE POC GLUCOSE POC GLUCOSE POC GLUCOSE CBC WITH AUTO DIFFERENTIAL XR Chest 1 View Final Result There is no acute cardiopulmonary process. Workstation ID: [id number] CT Angiogram Head Neck (STROKE) Final Result 1. No proximal intracranial arterial occlusion or high-grade stenosis. No intracranial aneurysm or vascular malformation. 2. No significant carotid or vertebral artery stenosis in the neck. No acute dissection. DMG/ads Workstation ID: [id number] CT Head Without Contrast (Stroke) Final Result 1. Low-density focus in the left basal ganglia may correlate with age-indeterminate lacunar infarct or prominent perivascular space. MRI could be considered if clinical symptoms warrant. 2. No acute hemorrhage or midline shift. Results were called by Dr. Gabriel Sarmiento to Dr. DEIRDRE REBOLLEDO on 11/01/2024 at 06:47. MPH/ges Workstation ID: [id number] Echocardiogram complete (Results Pending) CT Head Or Brain Without Contrast (Results Pending) Procedures: Procedures Her past medical problem list included: Active Ambulatory Problems Diagnosis Date Noted No Active Ambulatory Problems Resolved Ambulatory Problems Diagnosis Date Noted No Resolved Ambulatory Problems Past Medical History: Diagnosis Date Hypertension ED MEDICATIONS GIVEN: Medications clopidogreL (PLAVIX) tablet 300 mg (0 mg Oral Hold 11/01/24 0755) potassium chloride SA (K-DUR,KLOR-CON) CR tablet 40 mEq (0 mEq Oral Hold 11/01/24 0820) sodium chloride 0.9% (NS) (0 mL/hr Intravenous Stopped 11/01/24 1554) sodium chloride (PF) (NS) flush 5 mL (has no administration in time range) And sodium chloride (PF) (NS) flush 5 mL ( Intravenous Canceled Entry 11/02/24 0600) And sodium chloride 0.9% (NS) (has no administration in time range) aspirin EC tablet 325 mg ( Oral See Alternative 11/01/24 1720) Or aspirin suppository 300 mg (300 mg Rectal Given 11/01/24 1720) atorvastatin (LIPITOR) tablet 40 mg (40 mg Oral Given 11/01/242018) enoxaparin (LOVENOX) syringe 40 mg (40 mg Subcutaneous Given 11/01/242018) labetaloL (NORMODYNE) injection 10 mg (has no administration in time range) Or hydrALAZINE (APRESOLINE) injection 10 mg (has no administration in time range) acetaminophen (TYLENOL) tablet 650 mg (has no administration in time range) magnesium hydroxide (MOM) 400 mg/5 mL suspension 2,400 mg (has no administration in time range) aluminum-magnesium hydroxide-simethicone (MAALOX PLUS) 200-200-20 mg/5 mL suspension 30 mL (has no administration in time range) bisacodyL (DULCOLAX) suppository 10 mg (has no administration in time range) traZODone (DESYREL) tablet 50 mg (has no administration in time range) ondansetron (ZOFRAN-ODT) disintegrating tablet 4 mg (has no administration in time range) ondansetron (ZOFRAN) injection 4 mg (has no administration in time range) perflutren lipid microspheres (DEFINITY) 0.143 mg/mL solution 0-10 mL of mixture (has no administration in time range) latanoprost (XALATAN) 0.005 % ophthalmic solution 1 drop (1 drop Both Eyes Given 11/01/242018) multivitamin (THERAGRAN) per tablet 1 tablet (has no administration in time range) sodium chloride (PF) (NS) 0.9 % contrast line flush 10 mL (10 mL Intravenous Given 11/01/24 0654) And sodium chloride (PF) (NS) 0.9 % contrast line flush 80 mL (80 mL Intravenous Given 11/01/24 0654) iopamidoL (ISOVUE-370) 370 mg iodine /mL (76 %) injection 75 mL (75 mL Intravenous Contrast Administered 11/01/24 0653) After reviewing the items above, I look at previous medical documentation, such as recent hospitalizations, office visits, and/or recent consultations with PCP/specialist. SDOH: Another factor that I considered in Anila's care was her Social Determinants of Health (SDOH). During this ED encounter, she LAB TESTING: Ancillary lab testing . CBC CMP troponin RADIOLOGY: I did consider radiological studies for Anila's care today, . CT brain stroke protocol, CAT head/neck, chest x-ray ED COURSE: Patient is a 74-year-old female history of hypertension brought to the ED as a level 1 stroke alert with an initial LAMS score of 3, initial GC'S is 15, initial NIHSS of [address] activated [address] brain stroke protocol ordered. Patient has been evaluated by virtual neurology Dr. Delacruz and recommends stat CTA head/neck. Patient is not a TNK candidate due to uncertain last known well. At the end of my shift my colleague follow-up on the patient. . MIPS Measure #187: Thrombolytic Therapy Plan for Thrombolytics: LKW was > 3.5 hrs Clinical Impression: 1. Uncontrolled hypertension 2. Acute ischemic stroke (HCC) 3. Moderate dehydration 4. Acute CVA (cerebrovascular accident) (HCC) Disposition: ED Disposition ED Disposition Hospitalize Condition -- Comment Reason for inpatient over two midnights: stroke Bed request comments: 3NT if possible New Prescriptions This print group is not available in inpatient encounters. Please contact a train system operator. Deirdre Rebolledo MD ED Attending Physician [facility] Emergency Department (Please note that portions of this note have been completed with a voice recognition software. Efforts were made to correct any errors, but occasionally words are mis-transcribed.) Deirdre Rebolledo MD 11/02/[address] with this RN Level 1 Stroke Alert 123 called: 0600 Paged Overhead: 0602 pmo consultant called: 0603 EMS & ETA: [place] & 5 Minutes POC 131 bedside Patient to ED via EMS. Patient LKW 0500. Reported right sided facial dropp and right sided weakness. Stroke alert called at 0602 for LAMS 3. Bed: 05 Expected date: Expected time: Means of arrival: Comments: wendy documented in this encounter [facility] 11-01-2024 Consult note Formatting of th is note is different from the original. Speech Pathology Bedside Swallow Evaluation Per chart, Anila Pulliam is a 74 y.o. female patient of Nahomy Frank PA-C with history of HTN presented to [facility] on 11/01/2024 with rt facial droop and RUE weakness. Recommendations: Further Eval Rxs: Repeat BSE, Cognitive-communication evaluation PO Recommendations: NDD diet NDD diet recommendation: Regular solids, Thin liquids Compensatory Strategies: Eat/feed slowly, Lingual sweep, Extra swallow every 2-3 bites Postures: Sit as upright as possible for all oral intake, Up 30 min after meal Food Presentation: Small bites Liquid Presentation: Small sips Medication Presentation: Whole with thins Amount of Supervision: Set up assistance with tray Treatment Techniques: Train swallowing strategies, Oral motor exercises Further Recommendations: Oral care TID, Assess for diet tolerance Recommended Referrals: Physical Therapy, Occupational Therapy Discharge Recommendations: Skilled Therapy Needs: Are ST Skilled Therapy Services Needed After Discharge: (TBD, further assessment required) Prior Function: Reason for Referral: Stroke / neuro, Failed nursing swallow screening Prior Swallow Deficit: No known previous deficits, Per chart review, Per patient report Other Pertinent Diagnoses Affecting Swallow: CVA Diet Prior to BSE: NPO Primary Language: Tajik Baseline Assessment: Subjective Impression: Alert, Cooperative, Pleasant Mood, Caregiver/family at bedside Respiratory Status: Room air Dentition: Permanent Self-Feeding Barriers: Functional for self-feeding (With intermittent assist d/t right sided UE weakness) Patient Positioning: Upright in bed Baseline Cough: (Not present) Secretion Management: Adequate Volitional Swallow: Present Oral Motor: Oral Motor Impression-Severity Scale: Mild Labial ROM: Reduced right Labial Symmetry at Rest: Abnormal symmetry right Labial Strength: Reduced Lingual ROM: Within Functional Limits Lingual Symmetry: Within Functional Limits Mandible: Within Functional Limits Facial ROM: Reduced right Facial Symmetry at Rest: Right lower paresis Facial Sensation: Within Functional Limits Apraxia: None present Voice: Breath Support: WFL Vocal Quality: WFL Vocal Intensity: WFL Consistencies Assessed: CONSISTENCY PRESENTATION ORAL (SIGNS / SYMPTOMS) PHARYNGEAL (SIGNS / SYMPTOMS) ICE Spoon, PLASTERING SUPERVISOR fed Within functional limits (No overt s/sx of penetration/aspiration) THIN Cup, Straw, Self Fed, Continuous drinks Within functional limits (No overt s/sx of penetration/aspiration) PUREE Self fed, Spoon Within functional limits Cough - delayed SOLID Self Fed (Prolonged, however overall functional mastication) (No overt s/sx of penetration/aspiration) Pt was seen for completion of BSE in the setting of hospitalization s/p CVA. Pt denied swallow deficits, including: coughing/choking w/PO, globus sensation, difficulty with medications. Pt did endorse ongoing nausea. Pt accepted PO trials as detailed above w/dry, delayed cough noted x1 following puree trial. Difficult to determine source given delayed presentation. Will initiate diet level of thin liquids/regular solids, medications per pt preference. PLASTERING SUPERVISOR will continue to follow for ongoing assessment. Impressions-Severity Level: Oral Severity Scale: Minimal, Mild Pharyngeal Severity Scale: Suspect impaired Factors for Returning to PLOF: Body Structure and Function: Neurologic impairment Explain Impairments: s/p CVA Activities and Participation: ADL/IADL limitation Explain Limitations: right sided weakness s/p CVA Environmental Factors: Home situation, Family/caregiver support Explain Environmental Factors: presents from home, family at bedside Personal Factors: Awareness of own capacity and performance Explain Personal Factors: voicing insight PLASTERING SUPERVISOR Caregiver Readiness: PLASTERING SUPERVISOR Caregiver Readiness ST Rationale: Working toward discharge home, Stroke Caregiver Readiness ST Training Progress: Initiated & ongoing - follow-up required ST Identified Caregiver: Spouse, Other (comment) (Patient) Caregiver Present for ST Session: Yes ST Training Provided For: Safe swallow strategies - follow-up required (Risk of aspiration) Caregiver response to training: Verbalizes understanding Speech Plan: Further acute Speech Therapy services indicated: Yes Role of ST Discussed: With patient, With family/caregiver Risk/Benefits of ST Discussed: With patient, With family/caregiver Patient Goal for Treatment: To go home Rehab Potential: Excellent Further Recommendations: BSE re-assessment, Speech/language/cognitive evaluation Recommended Referrals: Physical Therapy, Occupational Therapy Speech Pathology Bedside Swallow Treatment Note Total Treatment Time (Total Session Time): 15 Minutes Skilled Interventions and Response to Interventions: BSE Skilled Intervention Patient education / training Caregiver/family education/training with patient involvement Swallowing Strategies verbalized comprehension of presented information verbalized comprehension of presented information Oral Care Risk of Aspiration verbalized comprehension of presented information verbalized comprehension of presented information Free Water Protocol BSE/MBS/FEES Diet Texture Modifications Solid texture modification Thickening liquids For complete objective data, detailed plan of care, and education refer to: Speech Bedside Swallow Evaluation flow sheet, as well as patient Plan of Care and Education documentation. This note stands as the current Discharge Summary upon patient discharge from the hospital or completion of Speech Pathology Plan of Care. [facility] 11-01-2024 Procedure note EKG: Obtained at 8:34 AM and read by me at the same time Rhythm: Sinus Rate: 80 [place] within normal limits Interval [place] QRS and QTc are grossly within normal limits. Patient does have some nonspecific ST and T wave abnormalities with mainly focused on 2 3 aVF in addition to V5 and V6 There is no ST elevations in contiguous leads with reciprocal depression to suggest coronary infarct otherwise. [facility] 11-01-2024 History and physical note [facility] HISTORY AND PHYSICAL -- [facility] Patient Name: Anila Pulliam : 1950 MR #: [id number] Admit Date: 11/01/2024 Physicians: aNhomy Frank PA-C (Family); No ref. provider found (Referring) Anila Pulliam is a 74 y.o. female patient of Nahomy Frank PA-C with history of HTN presented to [facility] on 11/01/2024 with rt facial droop and RUE weakness . Acute CVA Rt facial droop RUE weakness CT head with low density lesion in b.g. CTA with no large vessel lesions Lacunar stroke so will defer whether MRI & ECHO needed to Neurology as pt is self-pay HbA1c and lipid panel PT/OT/ST ASA and statin Permissive HTN, hold anti-htn meds Essential HTN Permissive HTN Hold home losartan and verapamil Glaucoma Continue home Xalatan Residence prior to admission: house or apartment Was patient transferred from outlying hospital or ED no Quality Measures DVT Prophylaxis: lovenox Villalobos Catheter: absent Medication Reconciliation: Verified Admitted with these risk variables:None. Please see assessment and plan for further details. Estimated Date of Discharge greater than 2 midnights Code Status Full Code; code status verified on 11/01/2024 with patient (capacity intact) Chief Complaint Rt facial droop, RUE weakness History of Present Illness Anila Pulliam is a 74 y.o. female patient of Nahomy Frank PA-C with history of HTN presented to [facility] on 11/01/2024 with rt facial droop and RUE weakness. Pt was fine when she went to bed last night. She woke up today with slurred speech. Pt also noted she couldn't head inspector and center marker with her right hand. She also notes nausea but not vomiting and denies dizziness. She also notes numbness and tingling on her right hand. She denies constipation, diarrhea, fevers, chills, dysuria. Pt still feels nauseated. Past Medical History Past Medical History: Diagnosis Date Hypertension Past Surgical History Past Surgical History: Procedure Laterality Date CHOLECYSTECTOMY Family History Family History Problem Relation Age of Onset Hypertension Mother Diabetes Father Social History Social History Tobacco Use Smoking Status Never Passive exposure: Never Smokeless Tobacco Never Social History Substance and Sexual Activity Alcohol Use Not Currently Social History Substance and Sexual Activity Drug Use Not Currently Allergy Information I have reviewed the patient's allergies. Patient has no known allergies. Home Medications Home medications were reviewed. Review Of Systems All relevant systems have been reviewed and are negative except as noted in HPI or below Physical Examination BP (!) 208/106 Pulse 84 Temp 98 F (36.7 C) (Oral) Resp (!) 20 Wt 93 kg (205 lb) SpO2 96% General Appearance: alert; acute on chronically ill appearing; in no acute distress HEENT: Head- normocephalic; Eyes- EOMI, sclera anicteric; Throat- mucous membranes moist Cardiovascular: regular rate and rhythm; normal S1, S2; no murmurs, rubs, clicks or gallops; peripheral edema absent Respiratory: lungs clear to auscultation; without wheezes, rales or rhonchi; on room air Abdomen: soft, non-tender, non-distended Neurological: oriented x 3;slurred speech; Rt hand head inspector and center marker is 3/5, Rt facial droop, right forearm numbness and tingling Musculoskeletal: no significant deformity or tenderness to palpation Skin: normal coloration Psych: normal mood and affect [facility] 11-01-2024 Note [facility] HISTORY AND PHYS ICAL -- [facility] Patient Name: Anila Pulliam : 1950 MR #: [id number] Admit Date: 11/01/2024 Physicians: Nahomy Frank PA-C (Family); No ref. provider found (Referring) Anila Pulliam is a 74 y.o. female patient of Nahomy Frank PA-C with history of HTN presented to [facility] on 11/01/2024 with rt facial droop and RUE weakness . Acute CVA Rt facial droop RUE weakness CT head with low density lesion in b.g. CTA with no large vessel lesions Lacunar stroke so will defer whether MRI & ECHO needed to Neurology as pt is self-pay HbA1c and lipid panel PT/OT/ST ASA and statin Permissive HTN, hold anti-htn meds Essential HTN Permissive HTN Hold home losartan and verapamil Glaucoma Continue home Xalatan Residence prior to admission: house or apartment Was patient transferred from outlying hospital or ED no Quality Measures DVT Prophylaxis: lovenox Villalobos Catheter: absent Medication Reconciliation: Verified Admitted with these risk variables:None. Please see assessment and plan for further details. Estimated Date of Discharge greater than 2 midnights Code Status Full Code; code status verified on 11/01/2024 with patient (capacity intact) Chief Complaint Rt facial droop, RUE weakness History of Present Illness Anila Pulliam is a 74 y.o. female patient of Nahomy Frank PA-C with history of HTN presented to [facility] on 11/01/2024 with rt facial droop and RUE weakness. Pt was fine when she went to bed last night. She woke up today with slurred speech. Pt also noted she couldn't head inspector and center marker with her right hand. She also notes nausea but not vomiting and denies dizziness. She also notes numbness and tingling on her right hand. She denies constipation, diarrhea, fevers, chills, dysuria. Pt still feels nauseated. Past Medical History Past Medical History: Diagnosis Date Hypertension Past Surgical History Past Surgical History: Procedure Laterality Date CHOLECYSTECTOMY Family History Family History Problem Relation Age of Onset Hypertension Mother Diabetes Father Social History Social History Tobacco Use Smoking Status Never Passive exposure: Never Smokeless Tobacco Never Social History Substance and Sexual Activity Alcohol Use Not Currently Social History Substance and Sexual Activity Drug Use Not Currently Allergy Information I have reviewed the patient's allergies. Patient has no known allergies. Home Medications Home medications were reviewed. Review Of Systems All relevant systems have been reviewed and are negative except as noted in HPI or below Physical Examination BP (!) 208/106 Pulse 84 Temp 98 degrees F (36.7 degrees C) (Oral) Resp (!) 20 Wt 93 kg (205 lb) SpO2 96% General Appearance: alert; acute on chronically ill appearing; in no acute distress HEENT: Head- normocephalic; Eyes- EOMI, sclera anicteric; Throat- mucous membranes moist Cardiovascular: regular rate and rhythm; normal S1, S2; no murmurs, rubs, clicks or gallops; peripheral edema absent Respiratory: lungs clear to auscultation; without wheezes, rales or rhonchi; on room air Abdomen: soft, non-tender, non-distended Neurological: oriented x 3;slurred speech; Rt hand head inspector and center marker is 3/5, Rt facial droop, right forearm numbness and tingling Musculoskeletal: no significant deformity or tenderness to palpation Skin: normal coloration Psych: normal mood and affect AUTHENTICATED BY KATIE GIFFORD, ON 11/01/2024 10:03:55 [facility] 11-01-2024 History and physical note [facility] HISTORY AND PHYSICAL -- [facility] Patient Name: Anila Pulliam : 1950 MR #: [id number] Admit Date: 11/01/2024 Physicians: Nahomy Frank PA-C (Family); No ref. provider found (Referring) Anila Pulliam is a 74 y.o. female patient of Nahomy Frank PA-C with history of HTN presented to [facility] on 11/01/2024 with rt facial droop and RUE weakness . Acute CVA Rt facial droop RUE weakness CT head with low density lesion in b.g. CTA with no large vessel lesions Lacunar stroke so will defer whether MRI & ECHO needed to Neurology as pt is self-pay HbA1c and lipid panel PT/OT/ST ASA and statin Permissive HTN, hold anti-htn meds Essential HTN Permissive HTN Hold home losartan and verapamil Glaucoma Continue home Xalatan Residence prior to admission: house or apartment Was patient transferred from outlying hospital or ED no Quality Measures DVT Prophylaxis: lovenox Villalobos Catheter: absent Medication Reconciliation: Verified Admitted with these risk variables:None. Please see assessment and plan for further details. Estimated Date of Discharge greater than 2 midnights Code Status Full Code; code status verified on 11/01/2024 with patient (capacity intact) Chief Complaint Rt facial droop, RUE weakness History of Present Illness Anila Pulliam is a 74 y.o. female patient of Nahomy Frank PA-C with history of HTN presented to [facility] on 11/01/2024 with rt facial droop and RUE weakness. Pt was fine when she went to bed last night. She woke up today with slurred speech. Pt also noted she couldn't head inspector and center marker with her right hand. She also notes nausea but not vomiting and denies dizziness. She also notes numbness and tingling on her right hand. She denies constipation, diarrhea, fevers, chills, dysuria. Pt still feels nauseated. Past Medical History Past Medical History: Diagnosis Date Hypertension Past Surgical History Past Surgical History: Procedure Laterality Date CHOLECYSTECTOMY Family History Family History Problem Relation Age of Onset Hypertension Mother Diabetes Father Social History Social History Tobacco Use Smoking Status Never Passive exposure: Never Smokeless Tobacco Never Social History Substance and Sexual Activity Alcohol Use Not Currently Social History Substance and Sexual Activity Drug Use Not Currently Allergy Information I have reviewed the patient's allergies. Patient has no known allergies. Home Medications Home medications were reviewed. Review Of Systems All relevant systems have been reviewed and are negative except as noted in HPI or below Physical Examination BP (!) 208/106 Pulse 84 Temp 98 F (36.7 C) (Oral) Resp (!) 20 Wt 93 kg (205 lb) SpO2 96% General Appearance: alert; acute on chronically ill appearing; in no acute distress HEENT: Head- normocephalic; Eyes- EOMI, sclera anicteric; Throat- mucous membranes moist Cardiovascular: regular rate and rhythm; normal S1, S2; no murmurs, rubs, clicks or gallops; peripheral edema absent Respiratory: lungs clear to auscultation; without wheezes, rales or rhonchi; on room air Abdomen: soft, non-tender, non-distended Neurological: oriented x 3;slurred speech; Rt hand head inspector and center marker is 3/5, Rt facial droop, right forearm numbness and tingling Musculoskeletal: no significant deformity or tenderness to palpation Skin: normal coloration Psych: normal mood and affect documented in this encounter [facility] 11-01-2024 Emergency department Note This patient was signed out to me at 7 AM by my colleague I assumed care for this patient at the beginning of my shift. Patient had arrived to the ED by EMS after noticing upon waking up this morning at 4 AM, went to bed at 8 PM the night prior, to have right-sided facial droop in addition to having right arm weakness mainly having some issues with her head inspector and center marker. Patient has a hard time with making a head inspector and center marker having it 4 out of 5 strength as well as mainly having issues with extending her fingers on that side. Patient does not have any drift in the upper and lower extremities currently. Patient was called as a level 1, more appropriate likely level 2 from his presentation, did not have any large vessel occlusion on the CT angio, did have a hypodensity does noted within the left basal ganglia concerning for an a determined stroke potentially. Neurology stroke consulted and the recommendation was to medically optimize this patient and no acute intervention surgically or endovascularly at this point. Dual antiplatelet agents. Permissive hypertension was recommended for this patient with appropriate parameters set forth in their note. Patient was gently hydrated with IV infusion normal saline 125 cc/h. Patient's as well as patient were notified regarding the results of imaging laboratory workup as well as disposition and further expectations while admitted. [facility] 11-01-2024 Progress note Formatting of t his note might be different from the original. Patient evaluated via telehealth platform ([facility]roke [facility]) Mr. Pulliam is a 74 years old lady with past medical history of hypertension who presented to [facility] emergency department with symptoms of right-sided weakness that she woke up with at 4 AM on 11/01/2024. States that she went to sleep at around 8 PM on 10/31/2024. Reports taking no other medications other than antihypertensives at home. Blood pressure 207/84 mmHg BG not available in chart NIH stroke scale of 5 (1B-1, 4-2, 9-1, 10-1) (noted decreased right hand head inspector and center marker strength) Noncontrast CT head was negative for an acute intracranial pathology. Symptoms concerning for left cerebral infarct/ischemia versus TIA - Patient is not a candidate for IV thrombolytic due to last known well. - Recommend CTA head and neck stat. Patient may require transfer to higher level of care if large vessel occlusion noted. - Also recommend Plavix 300 mg and aspirin 325 mg p.o. stat. - Admit for monitoring and stroke workup including but not limited to MRI brain, TTE, fasting lipid panel and HbA1c. - Permissive hypertension (blood pressure less than 220/120 mmHg for 48 hours and then gradually normalize over 5 to 7 days), gentle IV hydration and head of bed flat. Recommendations relayed to primary team and patient. Update post CTA: CTA head and neck reviewed and no large vessel occlusion of hemodynamically significant stenoses noted (official read pending). Recommendations: No change to above mentioned plan. (Computer voice recognition was used in this documentation, there is a possibility of [id number] errors inherent to this technology that may be missed during proofreading.) Srinivas Delacruz MD Vascular Neurology [facility] Work Phone: 11-01-2024 Emergency department Note Pt returned from CT, xray bedside [facility] 11-01-[address] Jayme CALDWELL for CTA, Dr Rebolledo. Patient to CT with this RN. [facility] 01-22-[address] Delacruz reports CT findings of old infarct apparent but no acute infarct found at this time. Patient does not qualify for TPA/TNK due to unsure LKW as patient was asleep. Plan for CTA. 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 [facility] 11-01-2024 Emergency department Note Returned from CT [facility] 11-01-2024 Physician Emergency department Note [facility] ED note NAME: Anila Pulliam 74 y.o. CSN: [id number] PCP: Nahomy Frank PA-C History: Chief Complaint: Stroke Alert HPI: Patient is a 74-year-old female history of hypertension brought to the ED as a level 1 stroke alert with a LAMS score of 3 and a last known well of 0500 today 11/01/2024. Patient said she was up this morning family noted the right facial droop, patient denies previous history of CAD CA PE pneumothorax denies history of CVA, upon arrival to the ED she is noted to have significant right facial droop right upper and lower extremity weakness her initial GCS is 15 initial NIHSS is 6 stroke alert activated prior to arrival to the ED , patient immediately taken to CT scan for imaging and virtual neurology will be consulted. Patient is not on anticoagulant and initial blood glucose is 131. PMHx: Past Medical History: Diagnosis Date Hypertension PMSx: Past Surgical History: Procedure Laterality Date CHOLECYSTECTOMY WISDOM TOOTH EXTRACTION Bilateral FAM. Hx: Family History Problem Relation Age of Onset Hypertension Mother Diabetes Father SOC. Hx: Social History Socioeconomic History Marital status: Tobacco Use Smoking status: Never Passive exposure: Never Smokeless tobacco: Never Substance and Sexual Activity Alcohol use: Not Currently Drug use: Not Currently Social Drivers of Health Food Insecurity: No Food Insecurity (11/01/2024) Hunger Vital Sign Worried About Running Out of Food in the Last Year: Never true Ran Out of Food in the Last Year: Never true Transportation Needs: No Transportation Needs (11/01/2024) PRAPARE - Transportation Lack of Transportation (Medical): No Lack of Transportation (Non-Medical): No Housing Stability: Low Risk (11/01/2024) Housing Stability Vital Sign Unable to Pay for Housing in the Last Year: No Number of Times Moved in the Last Year: 0 Homeless in the Last Year: No MEDs: Previous Medications Medication Sig latanoprost (XALATAN) 0.005 % ophthalmic solution Administer 1 (one) drop to both eyes at bedtime . losartan (COZAAR) 50 MG tablet Take 1 (one) tablet (50 mg total) by mouth daily . multivitamin per tablet Take 1 (one) tablet by mouth daily . verapamil sr (CALAN-SR) 120 MG er tablet Take 1 (one) tablet (120 mg total) by mouth daily . ALL: No Known Allergies ROS: Review of Systems Positives and pertinent negatives as per HPI. All other systems were reviewed and are negative. Physical Exam: Patient Vitals for the past 24 hrs: BP Temp Temp src Pulse Resp SpO2 Height Weight 11/02/24 0324 (!) 180/99 98.3 F (36.8 C) Oral 80 18 92 % -- -- 11/01/24 2311 (!) 168/79 98.6 F (37 C) Oral 83 14 93 % -- -- 11/01/242024 (!) 185/78 98.9 F (37.2 C) Oral 72 16 95 % -- -- 11/01/241999 -- -- -- -- 16 -- -- -- 11/01/24 1810 (!) 180/85 99.2 F (37.3 C) Oral 87 18 96 % -- -- 11/01/24 1810 -- -- -- -- -- -- 5' 7 93.1 kg (205 lb 4 oz) 11/01/24 1700 (!) 167/70 -- -- -- -- -- -- -- 11/01/24 1555 (!) 181/81 98.8 F (37.1 C) -- 82 18 94 % -- -- 11/01/24 1415 (!) 172/81 -- -- 68 (!) 19 93 % -- -- 11/01/24 1400 (!) 189/86 -- -- 70 18 93 % -- -- 11/01/24 1315 (!) 163/91 -- -- 70 16 94 % -- -- 11/01/24 1300 (!) 165/80 -- -- 68 16 95 % -- -- 11/01/24 1145 (!) 164/79 -- -- 77 17 95 % -- -- 11/01/24 1115 (!) 164/84 -- -- 74 (!) 19 95 % -- -- 11/01/24 1100 (!) 162/90 -- -- 79 (!) 21 95 % -- -- 11/01/24 1015 (!) 190/89 -- -- 75 (!) 19 94 % -- -- 11/01/24 0930 (!) 205/98 -- -- 85 (!) 23 96 % -- -- 11/01/24 0845 (!) 195/81 -- -- 73 (!) 20 94 % -- -- 11/01/24 0830 (!) 208/106 -- -- 84 (!) 20 96 % -- -- 11/01/24 0800 (!) 151/118 -- -- 77 (!) 20 97 % -- -- 11/01/24 0715 (!) 172/80 -- -- 76 (!) 20 95 % -- -- Physical Exam Vitals and nursing note reviewed. Constitutional: General: She is not in acute distress. Appearance: Normal appearance. HENT: Head: Normocephalic and atraumatic. Eyes: Pupils: Pupils are equal, round, and reactive to light. Cardiovascular: Rate and Rhythm: Normal rate. Musculoskeletal: General: Normal range of motion. Cervical back: Normal range of motion and neck supple. Pulmonary: Effort: Pulmonary effort is normal. No respiratory distress. Breath sounds: Normal breath sounds. No stridor. Abdominal: General: Abdomen is flat. Bowel sounds are normal. Palpations: Abdomen is soft. Tenderness: There is no abdominal tenderness. There is no guarding. Skin: General: Skin is warm. Neurological: Mental Status: She is alert and oriented to person, place, and time. Comments: Right facial droop, right upper and lower extremity weakness. Slurring of her speech. Psychiatric: Mood and Affect: Mood normal. NIH Scale: LOC: 0 - alert LOC Questions: 0 - answers both correctly LOC Commands: 0 - performs both correctly Best gaze: 1 - partial gaze palsy Vision: 0 - no visual loss Facial Palsy: 2 - partial Left arm: 0 - no drift Right arm; 0 - no drift Left le - no drift Right le - no drift Limb ataxia: 0 - absent Sensation: 1 - mild to moderate loss Best language: 1 - mild to moderate aphasia Dysarthria: 1 - mild to moderate dysarthria Extinction and inattention: 0 - no neglect Stroke Scale: 6 Laboratory & Radiological Imaging (if done): Labs Reviewed COMPREHENSIVE METABOLIC PANEL - Abnormal; Notable for the following components: Result Value Glucose 121 (*) BUN/Creatinine Ratio 23.0 (*) All other components within normal limits Narrative: [facility] has implemented the eGFR calculation approach that does not have a coefficient for race that conforms to the NKF-ASN Task Force Recommendations. LIPID PANEL - Abnormal; Notable for the following components: Cholesterol 204 (*) All other components within normal limits POC GLUCOSE - RALS - Abnormal; Notable for the following components: Glucose 140 (*) All other components within normal limits HEMOGLOBIN A1C - Normal CBC AND DIFFERENTIAL Narrative: The following orders were created for panel order CBC w/ Diff. Procedure Abnormality Status --------- ------ CBC Auto Differential[[id number]] Final result Please view results for these tests on the individual orders. TROPONIN POC GLUCOSE POC GLUCOSE POC GLUCOSE POC GLUCOSE POC GLUCOSE POC GLUCOSE POC GLUCOSE CBC WITH AUTO DIFFERENTIAL XR Chest 1 View Final Result There is no acute cardiopulmonary process. Workstation ID: [id number] CT Angiogram Head Neck (STROKE) Final Result 1. No proximal intracranial arterial occlusion or high-grade stenosis. No intracranial aneurysm or vascular malformation. 2. No significant carotid or vertebral artery stenosis in the neck. No acute dissection. DMG/ads Workstation ID: [id number] CT Head Without Contrast (Stroke) Final Result 1. Low-density focus in the left basal ganglia may correlate with age-indeterminate lacunar infarct or prominent perivascular space. MRI could be considered if clinical symptoms warrant. 2. No acute hemorrhage or midline shift. Results were called by Dr. Gabriel Sarmiento to Dr. DEIRDRE REBOLLEDO on 11/01/2024 at 06:47. MPH/ges Workstation ID: [id number] Echocardiogram complete (Results Pending) CT Head Or Brain Without Contrast (Results Pending) Procedures: Procedures Her past medical problem list included: Active Ambulatory Problems Diagnosis Date Noted No Active Ambulatory Problems Resolved Ambulatory Problems Diagnosis Date Noted No Resolved Ambulatory Problems Past Medical History: Diagnosis Date Hypertension ED MEDICATIONS GIVEN: Medications clopidogreL (PLAVIX) tablet 300 mg (0 mg Oral Hold 11/01/24 0755) potassium chloride SA (K-DUR,KLOR-CON) CR tablet 40 mEq (0 mEq Oral Hold 11/01/24 0820) sodium chloride 0.9% (NS) (0 mL/hr Intravenous Stopped 11/01/24 1554) sodium chloride (PF) (NS) flush 5 mL (has no administration in time range) And sodium chloride (PF) (NS) flush 5 mL ( Intravenous Canceled Entry 11/02/24 0600) And sodium chloride 0.9% (NS) (has no administration in time range) aspirin EC tablet 325 mg ( Oral See Alternative 11/01/24 1720) Or aspirin suppository 300 mg (300 mg Rectal Given 11/01/24 172) atorvastatin (LIPITOR) tablet 40 mg (40 mg Oral Given 11/01/242018) enoxaparin (LOVENOX) syringe 40 mg (40 mg Subcutaneous Given 11/01/242018) labetaloL (NORMODYNE) injection 10 mg (has no administration in time range) Or hydrALAZINE (APRESOLINE) injection 10 mg (has no administration in time range) acetaminophen (TYLENOL) tablet 650 mg (has no administration in time range) magnesium hydroxide (MOM) 400 mg/5 mL suspension 2,400 mg (has no administration in time range) aluminum-magnesium hydroxide-simethicone (MAALOX PLUS) 200-200-20 mg/5 mL suspension 30 mL (has no administration in time range) bisacodyL (DULCOLAX) suppository 10 mg (has no administration in time range) traZODone (DESYREL) tablet 50 mg (has no administration in time range) ondansetron (ZOFRAN-ODT) disintegrating tablet 4 mg (has no administration in time range) ondansetron (ZOFRAN) injection 4 mg (has no administration in time range) perflutren lipid microspheres (DEFINITY) 0.143 mg/mL solution 0-10 mL of mixture (has no administration in time range) latanoprost (XALATAN) 0.005 % ophthalmic solution 1 drop (1 drop Both Eyes Given 11/01/242018) multivitamin (THERAGRAN) per tablet 1 tablet (has no administration in time range) sodium chloride (PF) (NS) 0.9 % contrast line flush 10 mL (10 mL Intravenous Given 11/01/24 0654) And sodium chloride (PF) (NS) 0.9 % contrast line flush 80 mL (80 mL Intravenous Given 11/01/24 0654) iopamidoL (ISOVUE-370) 370 mg iodine /mL (76 %) injection 75 mL (75 mL Intravenous Contrast Administered 11/01/24 0653) After reviewing the items above, I look at previous medical documentation, such as recent hospitalizations, office visits, and/or recent consultations with PCP/specialist. SDOH: Another factor that I considered in Anila's care was her Social Determinants of Health (SDOH). During this ED encounter, she LAB TESTING: Ancillary lab testing . CBC CMP troponin RADIOLOGY: I did consider radiological studies for Anila's care today, . CT brain stroke protocol, CAT head/neck, chest x-ray ED COURSE: Patient is a 74-year-old female history of hypertension brought to the ED as a level 1 stroke alert with an initial LAMS score of 3, initial GC'S is 15, initial NIHSS of [address] alert activated stat [address] brain stroke protocol ordered. Patient has been evaluated by virtual neurology Dr. Delacruz and recommends stat CTA head/neck. Patient is not a TNK candidate due to uncertain last known well. At the end of my shift my colleague follow-up on the patient. . MIPS Measure #187: Thrombolytic Therapy Plan for Thrombolytics: LKW was > 3.5 hrs Clinical Impression: 1. Uncontrolled hypertension 2. Acute ischemic stroke (HCC) 3. Moderate dehydration 4. Acute CVA (cerebrovascular accident) (HCC) Disposition: ED Disposition ED Disposition Hospitalize Condition -- Comment Reason for inpatient over two midnights: stroke Bed request comments: 3NT if possible New Prescriptions This print group is not available in inpatient encounters. Please contact a train system operator. Deirdre Rebolledo MD ED Attending Physician [facility] Emergency Department (Please note that portions of this note have been completed with a voice recognition software. Efforts were made to correct any errors, but occasionally words are mis-transcribed.) Deirdre Rebolledo MD 11/02/24 0701 [facility] Work Phone: 11-01-2024 Emergency department Note [address] CT with this RN [facility] 11-01-2024 Emergency department Note Level 1 Stroke Alert 123 called: 0600 Paged Overhead: 0602 pmo consultant called: 0603 EMS & ETA: Wendy & 5 Minutes [facility] 11-01-2024 Emergency department Note POC 131 bedside [facility] 11-01-2024 Emergency department Triage note Patient to ED via EMS. Patient LKW 0500. Reported right sided facial dropp and right sided weakness. Stroke alert called at 0602 for LAMS 3. [facility] 11-01-2024 Emergency department Note Bed: 05 Expected date: Expected time: Means of arrival: Comments: wendy [facility] Evaluation note Diagnosis Acute CVA (cerebrovascular accident) (HCC)- Primary Uncontrolled hypertension Acute ischemic stroke (HCC) Unspecified cerebral artery occlusion with cerebral infarction Moderate dehydration Dehydration Acute CV[facility]cerebrovascular [facility]CC[facility]cerebro[facility]) (HCC)- [facility] Diagnosis Cerebrovascular accident (CVA), unspecified mechanism (HCC) Chest pain, unspecified type Mixed hyperlipidemia Primary hypertension Unspecified essential hypertension [facility]iology (Routine) - Closed Specialty Diagnoses / Procedures Referred By Contac t Referred To Contact Cardiology Diagnoses Cerebrovascular accident (CVA), unspecified mechanism (HCC) Chest pain, unspecified type Mixed hyperlipidemia Primary hypertension Procedures Extended cardiac holter monitor (3 days-14 day) UT EXTERNAL ECG REC>48HR<7D REVIEW & INTERPRETATION UT EXTERNAL ECG REC>48HR<7D RECORDING UT EXTERNAL ECG REC>7D<15D RECORDING UT EXTERNAL ECG REC>7D<15D REVIEW & INTERPRETATION Pricilla Jose DO [address] [place] [address] Phone: tel: fax: Referral ID Status Reason Start Date Expiration Date Visits Re quested Visits Authorized [id number] Closed 01/10/2025 01/10/2026 1 1 [facility] Summary Purpose Family History No Family History Records FoundNo Family History Records FoundNo Family History Records FoundNo Family History Records FoundNo Family History Records FoundNo Family History Records Found Advance Directives No Advanced Directives Records Found Date Activated Date Inactivated Comments 11/01/2024 8:45 AM 11/02/2024 4:29 PM Date Activated Date Inactivated Comments 11/01/2024 8:45 AM 11/02/2024 4:29 PM Additional Source Comments INFORMATION SOURCE (unrecogn ized section and content) DATE CREATED AUTHOR 04/06/2018 [facility] DATE CREATED AUTHOR AUTHOR'S ORGANIZ ATION 11/25/2024 [facility] DATE CREATED AUTHOR AUTHOR'S ORGANIZ ATION 12/04/2024 [facility] DATE CREATED AUTHOR AUTHOR'S ORGANIZ ATION 12/08/2024 [facility] DATE CREATED AUTHOR AUTHOR'S ORGANIZ ATION 01/13/[address] [facility] DATE CREATED AUTHOR AUTHOR'S ORGANIZ ATION 07/04/2025 [facility] Reason for Visit (unrecogniz ed section and content) Reason Comments Stroke Alert Specialty Diagnoses / Procedures Referred By Contac t Referred To Contact Diagnoses Moderate dehydration Acute ischemic stroke (HCC) Uncontrolled hypertension Acute CVA (cerebrovascular accident) (HCC) Referral ID Status Reason Start Date Expiration Date Visits Re quested Visits Authorized [id number] 1 1 Reason Onset Date Comments Care Management Referral 11/03/2024 CME spo ke with patient, scheduled patient with Specialist for follow up after discharge for: 11/16/2024 1:45 PM Everardo Blood, [facility] [place] Reason Comments Cerebrovascular Accident She states stif fness on right side of the face. She states no balance issues, She states her memory is slow. Scheduled Active and Recently Administ ered Medications (unrecognized section and content) Medication Order 10/31/2024 11/01/2024 11/02/2024 aspirin EC tablet 325 mg(Linked Group 1) 325 mg, Oral, Daily, First dose on Wed11/01/24 at 1630, DO NOT CRUSH OR CHEW. 1720 (See Alternative - Provider: Jenise Prajapati RN) 0815 (Given - Provider: Mallory Bobby RN) aspirin suppository 300 mg(Linked Group 1) 300 mg, Rectal, Daily, First dose on Wed11/01/24 at 1630, Use oral route first, if tolerated. 1720 (Given - Provider: Jenise Prajapati RN) 0815 (See Alternative - Provider: Mallory Bobby RN) atorvastatin (LIPITOR) tablet 40 mg 40 mg, Oral, Nightly, First dose on Wed11/01/24 at 2100 2019 (Given - Provider: Dione Staples RN) clopidogreL (PLAVIX) tablet 300 mg (COMPLETED) 300 mg, Oral, Once, On Tesha 11/02/24 at 1330, For 1 dose 1336 (Given - Provid er: Mallory Bobby RN) clopidogreL (PLAVIX) tablet 75 mg 75 mg, Oral, Daily, First dose on Wed11/03/24 at 0900, For 21 doses enoxaparin (LOVENOX) syringe 40 mg 40 mg, Subcutaneous, Nightly, First dose on Wed11/01/24 at 2100, Administer in abdomen unless otherwise directed by prescriber. Notify physician if patient refuses., Indication: VTE Prophylaxis 2018 (Given - Provider: Dione Staples, PAN) latanoprost (XALATAN) 0.005 % ophthalmic solution 1 drop 1 drop, Both Eyes, At bedtime, First dose on Wed11/01/24 at 2100 2018 (Given - Provider: Dione Staples RN) multivitamin (THERAGRAN) per tablet 1 tablet 1 tablet, Oral, Daily, First dose on Tesha 11/02/24 at 0900 0815 (Given - Provid er: Mallory Bobby RN) sodium chloride (PF) (NS) flush 5 mL(Linked Group 2) 5 mL, Intravenous, Every 8 hours scheduled, First dose on Wed11/01/24 at 1630, Saline lock 1630 (Not Given - Provider: Jenise Prajapati RN - Reason: Other)2200 (Canceled Entry - Provider: Dione Staples RN) 0600 (Canceled Entry - Provider: Dione Staples RN)1400 (Not Given - Provider: Mallory Bobby RN - Reason: Loss of IV access) Continuous Medication Order 10/31/2024 11/01/2024 11/02/2024 sodium chloride 0.9% (NS) () 125 mL/hr, Intravenous, Continuous, Starting on Wed11/01/24 at 0810, For 8 hours 1001 (New Bag - Provider: Dione Dial LPN)1554 (Stopped - Provider: Jenise Prajapati, PAN) PRN Medication Order 10/31/2024 11/01/2024 11/02/2024 acetaminophen (TYLENOL) tablet 650 mg 650 mg, Oral, Every 4 hours PRN, mild pain, fever 100.4 F or greater, headaches, Starting on Wed11/01/24 at 1627 aluminum-magnesium hydroxide-simethicone (MAALOX PLUS) 200-200-20 mg/5 mL suspension 30 mL 30 mL, Oral, Every 4 hours PRN, indigestion, Starting on Wed11/01/24 at 1627 bisacodyL (DULCOLAX) suppository 10 mg 10 mg, Rectal, Daily PRN, constipation, Starting on Wed11/01/24 at 1627, Try oral medications first for constipation. Try rectal medication if oral meds are ineffective, not tolerated, or not ordered. hydrALAZINE (APRESOLINE) injection 10 mg(Linked Group 3) 10 mg, Intravenous, Every 2 hour PRN, As ordered IF HR = 100 or less AND SBP or DBP greater than ranges stated in Hemodynamic Goal orders., Starting on Wed11/01/24 at 1627, Use labetalol first if HR greater than 60. Do not use hydralazine if HR greater than 100. May repeat dose in 15 minutes if SBP or DBP remains above ranges stated in Hemodynamic Goal orders. If, 15 minutes after a repeat dose, SBP or DBP remains above ranges stated in Hemodynamic Goal orders, initiate antihypertensive infusion IF ordered (Otherwise notify physician). If infusion already running, titrate it as ordered. iopamidoL (ISOVUE-370) 370 mg iodine /mL (76 %) injection 75 mL (COMPLETED) 75 mL, Intravenous, Once in imaging, contrast, Starting on Wed11/01/24 at 0651, For 1 dose 0653 (Contrast Administered - Provider: Matteo Lacy TECHNOLOGIST - Comment: [id number]:) labetaloL (NORMODYNE) injection 10 mg(Linked Group 3) 10 mg, Intravenous, Every 2 hour PRN, As ordered IF HR greater than 60 AND SBP or DBP greater than ranges stated in Hemodynamic Goal orders., Starting on Wed11/01/24 at 1627, Do not use labetolol if HR = 60 or less (Use hydralazine in that case, if ordered). May repeat dose in 15 minutes if SBP or DBP remains above ranges stated in Hemodynamic Goal orders. If, 15 minutes after a repeat dose, SBP or DBP remains above ranges stated in Hemodynamic Goal orders, initiate antihypertensive infusion IF ordered (Otherwise notify physician). If infusion already running, titrate it as ordered. magnesium hydroxide (MOM) 400 mg/5 mL suspension 2,400 mg 2,400 mg (30 mL), Oral, Daily PRN, constipation, For constipation., Starting on Wed11/01/24 at 1627 ondansetron (ZOFRAN) injection 4 mg 4 mg, Intravenous, Every 6 hours PRN, nausea, vomiting, Starting on Wed11/01/24 at 1627, Use oral route first, if tolerated. ondansetron (ZOFRAN-ODT) disintegrating tablet 4 mg 4 mg, Oral, Every 6 hours PRN, nausea, vomiting, Starting on Wed11/01/24 at 1627, Use oral route first, if tolerated. Formulation requires tablet remain in sealed package until immediately prior to dose being administered. perflutren lipid microspheres ([employer]) 0.143 mg/mL solution 0-10 mL of mixture 0-10 mL of mixture, Intravenous, Once in imaging, contrast, IF suboptimal echo, Starting on Wed11/01/24 at 1627, For 48 hours, Prepare syringe by withdrawing 1.3 mL of perflutren (DEFINITY) from the 2ml vial. Further dilute the 1.3 mL of perflutren with Sodium Chloride (NS) 0.9% to total volume of 10 ml. Chart total ML OF MIXTURE given to patient. sodium chloride (PF) (NS) 0.9 % contrast line flush 10 mL (COMPLETED)(Linked Group 4) 10 mL, Intravenous, Once in imaging, contrast, Per dressing machine operator (Radiology) for line patency check prior to contrast administration, Starting on Wed11/01/24 at 0651, For 1 dose 0654 (Given - Provider: Matteo Lacy, TECHNOLOGIST) sodium chloride (PF) (NS) 0.9 % contrast line flush 80 mL (COMPLETED)(Linked Group 4) 80 mL, Intravenous, Once in imaging, contrast, Per dressing machine operator (Radiology), Starting on Wed11/01/24 at 0651, For 1 dose, 30 mL BEFORE contrast administration 50 mL AFTER contrast administration 0654 (Given - Provider: Matteo Lacy TECHNOLOGIST) sodium chloride (PF) (NS) flush 5 mL(Linked Group 2) 5 mL, Intravenous, As needed, line care, Starting on Wed11/01/24 at 1627 sodium chloride 0.9% (NS)(Linked Group 2) 0-150 mL/hr, Intravenous, As needed, To flush line after IV infusions when no maintenance IV ordered or a compatibility issue. Infuse 20ml at the same rate as the secondary infusion, Starting on Wed11/01/24 at 1627, Run as Primary IV. NOT intended for KVO. traZODone (DESYREL) tablet 50 mg 50 mg, Oral, Nightly PRN, sleep, Starting on Wed11/01/24 at 1627, [] May repeat times 1 in 30 minutes if still awake. Linked Groups Order Group 1: aspirin EC tablet 325 mgJump to med 325 mg, Oral, Daily, First dose on Wed11/01/24 at 1630, DO NOT CRUSH OR CHEW. Or aspirin suppository 300 mgJump to med 300 mg, Rectal, Daily, First dose on Wed11/01/24 at 1630, Use oral route first, if tolerated. Group 2: Saline lock IV (CANCELED) Routine, Continuous, Starting on Wed11/01/24 at 1628, Until Specified And sodium chloride (PF) (NS) flush 5 mLJump to med 5 mL, Intravenous, As needed, line care, Starting on Wed11/01/24 at 1627 And sodium chloride (PF) (NS) flush 5 mLJump to med 5 mL, Intravenous, Every 8 hours scheduled, First dose on Wed11/01/24 at 1630, Saline lock And sodium chloride 0.9% (NS)Jump to med 0-150 mL/hr, Intravenous, As needed, To flush line after IV infusions when no maintenance IV ordered or a compatibility issue. Infuse 20ml at the same rate as the secondary infusion, Starting on Wed11/01/24 at 1627, Run as Primary IV. NOT intended for KVO. Group 3: labetaloL (NORMODYNE) injection 10 mgJump to med 10 mg, Intravenous, Every 2 hour PRN, As ordered IF HR greater than 60 AND SBP or DBP greater than ranges stated in Hemodynamic Goal orders., Starting on Wed11/01/24 at 1627, Do not use labetolol if HR = 60 or less (Use hydralazine in that case, if ordered). May repeat dose in 15 minutes if SBP or DBP remains above ranges stated in Hemodynamic Goal orders. If, 15 minutes after a repeat dose, SBP or DBP remains above ranges stated in Hemodynamic Goal orders, initiate antihypertensive infusion IF ordered (Otherwise notify physician). If infusion already running, titrate it as ordered. Or hydrALAZINE (APRESOLINE) injection 10 mgJump to med 10 mg, Intravenous, Every 2 hour PRN, As ordered IF HR = 100 or less AND SBP or DBP greater than ranges stated in Hemodynamic Goal orders., Starting on Wed11/01/24 at 1627, Use labetalol first if HR greater than 60. Do not use hydralazine if HR greater than 100. May repeat dose in 15 minutes if SBP or DBP remains above ranges stated in Hemodynamic Goal orders. If, 15 minutes after a repeat dose, SBP or DBP remains above ranges stated in Hemodynamic Goal orders, initiate antihypertensive infusion IF ordered (Otherwise notify physician). If infusion already running, titrate it as ordered. Group 4: sodium chloride (PF) (NS) 0.9 % contrast line flush 10 mL (COMPLETED)Jump to med 10 mL, Intravenous, Once in imaging, contrast, Per dressing machine operator (Radiology) for line patency check prior to contrast administration, Starting on Wed11/01/24 at 0651, For 1 dose And sodium chloride (PF) (NS) 0.9 % contrast line flush 80 mL (COMPLETED)Jump to med 80 mL, Intravenous, Once in imaging, contrast, Per dressing machine operator (Radiology), Starting on Wed11/01/24 at 0651, For 1 dose, 30 mL BEFORE contrast administration 50 mL AFTER contrast administration Care Teams (unrecognized sec tion and content) Inside Channel Account Manager Relationship Specialty Start Date End Date Nahomy Frank PA-C [id number] [address] PCP - General Physician Cartridge Assembler 11/01/24 Inside Channel Account Manager Relationship Specialty Start Date End Date Nahomy Frank PA-C [address] [address] PCP - General Physician Cartridge Assembler 11/01/24 Inside Channel Account Manager Relationship Specialty Start Date End Date Nahomy Frank PA-C [address] [address] [place] [address] PCP - General Physician Cartridge Assembler 11/01/24 Inside Channel Account Manager Relationship Specialty Start Date End Date Nahomy Frank PA [address] [place] [address] PCP - General Physician Cartridge Assembler 01/10/25 FOR RECORDS PERTAINING TO PATIENTS WHO ARE OR HAVE BEEN ENROLLED IN A CHEMICAL DEPENDENCY/SUBSTANCEABUSE PROGRAM, SOME INFORMATION MAY BE OMITTED. This clinical summary was aggregated from multiple sources. Caution should be exercised in using it in the provision of clinical care. This summary normalizes information from multiple sources, and as a consequence, information in this document may materially change the coding, format and clinical context of patient data. In addition, data may be omitted in some cases. CLINICAL DECISIONS SHOULD BE BASED ON THE PRIMARY CLINICAL RECORDS. [employer] provides no warranty or guarantee of the accuracy or completeness of information in this document.
[2025-07-13 00:31] VITALS: BP 135/67; PULSE 58; RESP 16; TEMP 36.6; O2SAT 98
[2025-07-13] MEDS: Cefazolin 1 GM/50 ML BAG IV (00:36)
[2025-07-13 04:42] VITALS: BP 140/63; PULSE 68; RESP 16; TEMP 36.6; O2SAT 97
[2025-07-13 06:11] LABS: Hematocrit 34.9 % (37-47); Hemoglobin 11.9 g/dL (12.0-15.0); Mean Corp Hgb Conc 34.1 g/dL (32-36); Mean Corpuscular Volume 91.4 fL (81-99); Mean Platelet Vol. 11.2 fl (6.2-12.0); Platelet Count 233 K/mm3 (150-450); RBC Distribution Width CV 12.4 % (11.6-14.6); RBC Distribution Width SD 41.3 fl (35.1-43.9); Red Blood Count 3.82 M/mm3 (4.2-5.4); White Blood Count 17.9 K/mm3 (4.4-11.0)
[2025-07-13 06:51] LABS: Anion Gap 11 (5-15); BUN 18 mg/dL (4-19); BUN/Creat Ratio 18.4 RATIO (10-20); Calcium,Total 8.8 mg/dL (7.6-11.0); Carbon Dioxide 22.8 mmol/L (21.0-32.0); Chloride 103 mmol/L (98-108); Estimated Creatinine Clearance 53.99 ml/min (50-250); Glucose 111 mg/dL (70-99); Potassium 3.9 mmol/L (3.3-5.1)
[2025-07-13 07:05] VITALS: O2SAT 96
[2025-07-13 08:25] VITALS: BP 124/57; PULSE 70; RESP 17; TEMP 37.2; O2SAT 95
[2025-07-13] MEDS: Senna/Docusate Sodium 1 Tablet 2 TABLET PO (09:08)
[2025-07-13] MEDS: Ensure Surgery 237 ML LIQUID PO (09:09)
[2025-07-13] MEDS: Latanoprost 0.005% 1 Bottle 1 DRP OPHTHALMIC (09:09)
[2025-07-13] MEDS: Aspirin E.C. 81 MG Tablet PO (09:09)
--- NOTE | 2025-07-13 11:59 | PCM.PN.ORT ---
Subjective Subjective Patient is postop day #1 following a reverse left total shoulder arthroplasty. Her is present at time of exam. Pain has been reasonably controlled at the level of the left shoulder. She denies chest pain shortness of breath dizziness or calf pain. She denies cough or painful urination. She has been using the sling. No numbness or tingling into the fingers. Doing well overall her goal is for a discharge to home today. Objective Data Objective Data Patient is alert and oriented x 3 no acute distress at rest breathing easily without respiratory distress. Inspection of left upper extremity is with intact clean dry waterproof dressing without active drainage erythema warmth or signs of infection. Range of motion left shoulder deferred due to surgery. Gentle mobility left elbow without pain. Left wrist and hand without tenderness. Full mobility of the wrist and fingers sensation intact light touch capillary refill less than 3 seconds neurovascularly intact Vital Signs: Vital Signs Temp Pulse Resp BP Pulse Ox O2 Del Method O2 Flow Rate 98.9 F 70 17 124/57 H 95 Room Air 4 07/13/25 08:25 07/13/25 08:25 07/13/25 08:25 07/13/25 08:25 07/13/25 08:25 07/13/25 08:25 07/12/25 13:16 Oxygen Flow Rate (L/min) 4 Oxygen Delivery Method Room Air Weight: 80 kg Body Mass Index (BMI) 28.4 Intake & Output: Intake and Output for Last 24 Hours 07/11/25 07/12/25 07/13/25 23:59 23:59 23:59 Intake Total 4330.75 / 4580.75 450 / 450 Output Total 200 / 200 Balance 4130.75 / 4380.75 450 / 450 Lab / Micro Data Attestation: I reviewed the patient's lab results. 07/13/25 05:31 07/13/25 05:31 Labs: Laboratory Results - last 24 hr 07/13/25 05:31: WBC 17.9 H, RBC 3.82 L, Hgb 11.9 L, Hct 34.9 L, MCV 91.4, MCH 31.2, MCHC 34.1, RDW Std Deviation 41.3, RDW Coeff of Cathy 12.4, Plt Count 233, MPV 11.2, Sodium 137, Potassium 3.9, Chloride 103, Carbon Dioxide 22.8, Anion Gap 11, BUN 18, Creatinine 0.99, Estim Creat Clear Calc 53.99, Est GFR (MDRD) Non-Af 61, BUN/Creatinine Ratio 18.4, Glucose 111 H, Calcium 8.8 Assessment & Plan Assessment/Plan (1) Status post reverse arthroplasty of left shoulder: PLAN: Postoperative x-rays were reviewed. Expected postsurgical changes 1. Status post left reverse total shoulder arthroplasty postoperative day #1 2. Continue oxycodone as needed for pain and scheduled Tylenol 1000 mg 3 times daily. Patient will be discharged with prescriptions for these medications 3. DVT prophylaxis bilateral teds SCDs and aspirin 81 mg twice daily for blood clot prevention x 2 weeks. Patient denies a history of DVT or pulmonary embolism prescription will be sent 4. Continue with UltraSling nonweightbearing left upper extremity okay for gentle range of motion fingers wrist and elbow. Plan to begin physical therapy 2 weeks postoperative 5. Leukocytosis afebrile without acute signs of infection likely resulting from acute stress response. Patient has been afebrile no evidence of infection at the surgical site. Anticipate resolution over the next several days 6. Encourage incentive spirometry 7. Continue discharge planning with case management 8. Continue postoperative medical management per hospitalist 9. Patient is orthopedically stable and okay for discharge to home when cleared medically having adequate pain control and doing well with physical therapy. Plan to follow-up in the office 2 weeks postoperative appointment is already scheduled. Patient's postoperative prescriptions will be faxed to [facility] retail pharmacy today.
--- NOTE | 2025-07-13 12:07 | DCINST_ITS ---
Discharge Instructions DC O2, CPAP, BIPAP needs Home O2 Discharge instructions: No Dressing / Incision Discharge Activity: May Not Drive (while taking narcotic pain medications.) May shower in (days): 1 Ice area for (Minutes): 20 (Ice area for 20 minutes each hour while awake) Weight Bearing Status: No weight bearing Additional Activity Instructions:: See postoperative [place] sheet for any further instructions Dressing / Incision Call your doctor if your incision/area has: Continuous Slow Oozing, Sudden Increased Bleeding, Increased Pain/ Swelling, Increased Redness and Foul Smelling Discharge Call your doctor if you observe: Fever of 101 or Higher, Coldness, Increased Pain, Numbness or Tingling and Change in Color Additional Dressing/Incision Instructions:: See postoperative [place] sheet for any further instructions Follow Up Care Test Results: Test results from this visit will be discussed in further detail at your follow- up appointment, if applicable. Discharge Plan Admission Admit Date/Time: 07/12/25 11:01 Attending Provider: Phi Virk Primary Care Provider: Kaveh Alston Consulting Providers: Celsa Abbasi Discharge Orders/Prescriptions Prescriptions: New sennosides-docusate sodium [Stimulant Laxative Plus] 8.6-50 mg Tablet 2 tab PO BID Qty: 0 0RF aspirin 81 mg Tablet,Delayed Release (Dr/Ec) 81 mg PO DAILY@0800 Qty: 0 0RF acetaminophen 500 mg Tablet 1,000 mg PO Q8 Qty: 0 0RF oxycodone 5 mg Tablet 5 - 10 mg PO Q4H PRN PRN (Reason: Pain Score 4-10) Qty: 0 0RF Continued nifedipine 30 mg tablet extended release 30 mg PO QHS losartan 50 mg tablet 50 mg PO DAILY atorvastatin [Lipitor] 40 mg tablet 40 mg PO QHS cholecalciferol (vitamin D3) [Vitamin D3] 50 mcg (2,000 unit) tablet 50 mcg PO DAILY Ocuvite Eye Health 50 mg-15 unit- 4.5 mg-2.5 mg tablet,chewable 2 tab PO DAILY Complex B-100 Tablet Extended Release 1 tab PO DAILY latanoprost 0.005 % drops 1 drp ophthalmic (eye) DAILY timolol 0.5 % drops 1 drp EACH EYE QHS Held omega 6-cvi-inv-fish oil 1,000 (120-180) mg capsule 1 cap PO DAILY Hold Instructions: Resume on 07/27/25. No Action aspirin [Adult Low Dose Aspirin] 81 mg tablet,delayed release (DR/EC) 81 mg PO DAILY Referrals / Follow Up: Kaveh Alston PA-C [Primary Care Provider, Medical] Disposition Disposition (needs filled in before D/C Order can be placed): Home, Self Care
--- NOTE | 2025-07-13 12:18 | CASEMGMT ---
Addendum entered by Modesta Larson 07/13/25 12:35: 1225- PAN HANEY into pt room, pt dressed and came out of bathroom without using device. Pt at bedside. Pt denies any homegoing needs at this time. Pt has DME should she need it. Original Note: Spoke with OT who states pt did well and is fine to dc home safely. Plan for pt to dc this date.
--- NOTE | 2025-07-13 14:44 | PN_ITS ---
Subjective Subjective Patient seen and examined with her nurse by her bedside. She had no complaints and felt well. She was working with therapy. Review of systems otherwise negative. She was hemodynamically stable. Pain well-controlled. Objective Data Objective Data Vital Signs: Vital Signs Temp Pulse Resp BP Pulse Ox O2 Del Method O2 Flow Rate 98.9 F 70 17 124/57 H 95 Room Air 4 07/13/25 08:25 07/13/25 08:25 07/13/25 08:25 07/13/25 08:25 07/13/25 08:25 07/13/25 08:25 07/12/25 13:16 Oxygen Flow Rate (L/min) 4 Oxygen Delivery Method Room Air Weight: 176 lb 5.917 oz Body Mass Index (BMI) 28.4 Intake & Output: Intake and Output for Last 24 Hours 07/11/25 07/12/25 07/13/25 23:59 23:59 23:59 Intake Total 4330.75 / 4580.75 450 / 450 Output Total 200 / 200 Balance 4130.75 / 4380.75 450 / 450 Lab / Micro Data 07/13/25 05:31 07/13/25 05:31 Labs: Laboratory Results - last 24 hr 07/13/25 05:31: WBC 17.9 H, RBC 3.82 L, Hgb 11.9 L, Hct 34.9 L, MCV 91.4, MCH 31.2, MCHC 34.1, RDW Std Deviation 41.3, RDW Coeff of Cathy 12.4, Plt Count 233, MPV 11.2, Sodium 137, Potassium 3.9, Chloride 103, Carbon Dioxide 22.8, Anion Gap 11, BUN 18, Creatinine 0.99, Estim Creat Clear Calc 53.99, Est GFR (MDRD) Non-Af 61, BUN/Creatinine Ratio 18.4, Glucose 111 H, Calcium 8.8 Physical Exam Const alert, oriented x3 and no apparent distress General Appearance: cooperative HEENT normocephalic, head/scalp atraumatic, moist oral mucous membranes and oropharynx normal Eyes EOMs intact bilaterally Neck supple and no JVD Lymph Lymphatic: no lymphedema noted Resp normal respiratory effort, normal air movement and clear to auscultation bilaterally Cardio regular rate, regular rhythm, S1 normal heart sound, S2 normal heart sound and no murmurs GI normal to inspection, nondistended, normoactive bowel sounds, soft to palpation, non-tender and non-distended Extremity Extremity Narrative: intact dressing over left shoulder at site of surgery Skin Skin Narrative: as under extremities Neuro no focal motor deficits Motor Exam: general weakness Psych thought process normal, cooperative and affect normal Appearance: appropriate Assessment & Plan Assessment/Plan (1) Status post reverse arthroplasty of left shoulder: (2) Hypertension: PLAN: Plan #Left primary glenohumeral joint arthritis with left shoulder rotator cuff tear * S/p left reverse total shoulder replacement with Dr. Virk on 07/12/2025. * On p.o. Tylenol, p.o. oxycodone and IV morphine as needed for pain * Incentive spirometry. PT OT on board. Management as per primary service. #Hypertension: On losartan and nifedipine #Hyperlipidemia: On statin #History of CVA: On aspirin and statin DVT prophylaxis: As per primary service orthopedics. Disposition: Patient stable for discharge from hospital standpoint. Charges/Coding Visit Charges Inpatient E&M: 44815 Subs Hosp L2
== END 2025-07-13 12:55 | disposition home or self-care (01) ==
LOC: SDC 12:04 → MS3 12:04
PROVIDERS: Admitting Provider Student in an Organized Health Care Education/Training Program; PCP Physician Assistant; Referring Provider Student in an Organized Health Care Education/Training Program; Visit Provider Student in an Organized Health Care Education/Training Program
PROC: (CPT 23472; principal; 2025-07-12 08:45)
DX: M19.012 Primary osteoarthritis, left shoulder (principal); I10 Essential (primary) hypertension; E78.00 Pure hypercholesterolemia, unspecified; M75.102 Unspecified rotator cuff tear or rupture of left shoulder, not specified as traumatic; Z79.82 Long term (current) use of aspirin; Z79.899 Other long term (current) drug therapy; Z86.73 Personal history of transient ischemic attack (TIA), and cerebral infarction without residual deficits
CPT/HCPCS: 23472; 01638; 64415; 36415; 73030; 80048; 82962; 85027; 94668; 96361; 96365; 96366; 97166; 99221; C1776; G0378; J2405; J3475